=== PATIENT | female | born 1990 | race African-American/Black ===

== ENCOUNTER 2016-08-27 13:29 | Emergency (ER) | payer SELFPAY ==
[~2016-08-27] VITALS: Ht 162.6 cm; Wt 100.0 kg
[~2016-08-27 13:29] MED LIST: FERR324T4 PO; ZOFR4TAB3 SL
[2016-08-27 13:31] VITALS: BP 140/82; PULSE 96; RESP 16; TEMP 98.6; O2SAT 98
[2016-08-27] MEDS ORDERED: BACT800T5 PO (15:09)
[2016-08-27] MEDS ORDERED: CEPH-460 PO (15:09)
[2016-08-27] MEDS ORDERED: IBUP800T23 PO (15:09)
--- NOTE | 2016-08-27 15:10 | PD ---
HPI Chief Complaint: Skin Problem Time Seen by Provider: 15:05 Travel History International Travel<30 days: No Contact w/Intl Traveler<30days: No Traveled to known affect area: No History of Present Illness HPI 26-year-old female presents to the emergency Department with complaint of an abscess to her left armpit 4 days. She has history of abscesses. Denies fever , chills, nausea, vomiting. Has not taken any medications or tried any treatments to alleviate her symptoms. No known relieving or aggravating factors. She says they usually come and go away on their own but this one has gotten bigger and more painful. Denies drainage from the area. No known allergies. Other modifying factors or associated signs and symptoms. PFSH Past Medical History Anemia: Yes Blood Disorders: No Anxiety: Yes Depression: Yes Cancer: No Cardiovascular Problems: Yes Chest Pain: Yes Diminished Hearing: No Endocrine: No Gastrointestinal Disorders: No Genitourinary: No Immune Disorder: No Musculoskeletal: Yes Neurologic: Yes Psychiatric: Yes Reproductive: No Respiratory: No Immunizations Current: Yes Migraines: Yes LMP: 08/02/2016 Menopausal: No : 6 Para: 4 Miscarriage: 1 : 0 Dilation and Curettage (D&C): Yes Past Surgical History Other Surgery: No Social History Alcohol Use: No Tobacco Use: No Substance Use: Yes (marijuana) Allergies-Medications (Allergen,Severity, Reaction): Coded Allergies: No Known Allergies (Verified , 08/27/16) Reported Meds & Prescriptions Reported Meds & Active Scripts Active Ibuprofen 800 Mg Tab 800 Mg PO Q6HR PRN Bactrim DS (Sulfamethoxazole-Trimethoprim) 800-160 Mg Tab 1 Tab PO BID 10 Days Keflex (Cephalexin) 500 Mg Cap 500 Mg PO Q6H 10 Days Review of Systems Except as stated in HPI: all other systems reviewed are Neg Physical Exam Narrative GENERAL: Well-nourished, well-developed patient, in no acute distress SKIN: There is an indurated area in the left axilla which measures about 3 cm in diameter. It is fluctuant but there is no pointing or drainage. There is a zone of inflammation around it but no lymphangitis. HEAD: Atraumatic. Normocephalic. EYES: Pupils equal and round. No scleral icterus. No injection or drainage. ENT: Mucosa pink and moist. Airway patent. NECK: Trachea midline. CARDIOVASCULAR: Regular rate. RESPIRATORY: No accessory muscle use. GASTROINTESTINAL: Obese. MUSCULOSKELETAL: No obvious deformities. No clubbing. No cyanosis. No edema. NEUROLOGICAL: Awake and alert. Oriented 3. No obvious cranial nerve deficits. Motor grossly within normal limits. Normal speech. PSYCHIATRIC: Appropriate mood and affect; insight and judgment normal. Data Data Last Documented VS Vital Signs Date Time Temp Pulse Resp B/P Pulse Ox O2 Delivery O2 Flow Rate FiO2 08/27/16 13:31 98.6 96 16 140/82 98 Orders Lidocai-Epi 1%-1:100,000 Inj (Xylocaine- (08/27/16 15:15) Wound Culture And Gram Stain (08/27/16 15:55) [facility] Medical Decision Making Medical Screen Exam Complete: Yes Emergency Medical Condition: Yes Medical Record Reviewed: Yes Differential Diagnosis Abscess, folic colitis, hydradenitis Narrative Course 18-year-old female physical exam consistent with an abscess to the left axilla. See my procedure note for incision and drainage. Wound culture is pending. Patient is afebrile nontoxic appearing. Denies fever, chills, nausea, vomiting. Keflex, Bactrim, ibuprofen prescribed for home. Instructed patient to follow up with primary care provider or return to the emergency department in 48 hours for packing removal and she verbalizes understanding and agreement with treatment plan. Patient is medically cleared and stable for discharge. Discussed reasons to return to the emergency department. Instructed patient to follow up with primary care provider. Patient agrees with treatment plan. The patients vital signs are stable and the patient is stable for outpatient follow- up and treatment. Patient discharged home, stable and in no acute distress. Procedures Procedure Narrative INCISION AND DRAINAGE OF ABSCESS: The area was prepped and was sterilely draped. A subcutaneous wheal of 1% % Xylocaine with epinephrine with a total number 3 mL was used to anesthetize the area properly. A number 11 scalpel was used to make a 0.5 -cm incision across the area of the abscess. The abscess was drained, complex loculations were broken down, and irrigated with normal saline. Cultures were obtained. Quarter inch iodoform packing was placed in the wound. Sterile dressing applied. Patient advised to have packing removed in two days. Diagnosis Primary Impression: Abscess of left axilla Referrals: Primary Care Physician Patient Instructions: Abscess (ED), Abscess Follow-up (ED), Abscess Incision and Drainage (ED), General Instructions Departure Forms: Tests/Procedures, Work Release Enter return to work date: Aug 28, 2016 Additional Instructions: Complete full course of antibiotics Warm compresses to the affected area Keep area clean and dry Ibuprofen or Tylenol as directed and as needed for pain and inflammation Follow-up with primary care provider Return to emergency department immediately with worsening of symptoms Med/Other Pt SpecificInfo: Prescription(s) given Scripts Ibuprofen 800 Mg [id number] Mg PO Q6HR PRN (PAIN) #30 TAB Ref 0 Prov:Mitali Wade 08/27/16 Sulfamethoxazole-Trimethoprim (Bactrim DS)800-160 Mg Tab1 Tab PO BID 10 Days Ref 0 Prov:Mitali Wade 08/27/16 Cephalexin (Keflex)500 Mg Uys057 Mg PO Q6H 10 Days Ref 0 Prov:Mitali Wade 08/27/16 Disposition: 01 DISCHARGE HOME Condition: Stable Mitali Wade Aug 27, 2016 15:10
[2016-08-27] MEDS ORDERED: LIDOCAINE 1%/EPINEPHrine 1:100,000 SOLN 20 ML VIAL INFIL ONE (15:15)
== END 2016-08-27 16:18 | disposition home or self-care (01) ==
LOC: NEPB 13:29
DX: L02.412 Cutaneous abscess of left axilla (principal); D64.9 Anemia, unspecified
CPT/HCPCS: 10061; 87070

== ENCOUNTER 2016-10-21 01:59 | Emergency (ER) | payer SELFPAY ==
[~2016-10-21] VITALS: Ht 162.6 cm; Wt 100.0 kg
[~2016-10-21 01:59] MED LIST changes: +BACT800T5 PO; +CEPH-460 PO; -FERR324T4 PO; +IBUP800T23 PO; -ZOFR4TAB3 SL
[2016-10-21 02:05] VITALS: BP 136/78; PULSE 94; RESP 16; TEMP 98.6; O2SAT 99
[2016-10-21] MEDS ORDERED: BACT800T5 PO (04:31)
[2016-10-21] MEDS ORDERED: IBUP800T23 PO (04:31)
--- NOTE | 2016-10-21 04:32 | PD ---
HPI . Abscess Chief Complaint: Skin Problem Time Seen by Provider: 04:28 Travel History International Travel<30 days: No Contact w/Intl Traveler<30days: No Traveled to known affect area: No History of Present Illness HPI Patient presents complaining with purulent drainage from her left axilla. She is status post I&D assess a couple weeks ago. She states that it has opened back up and started draining some purulent material within the last 3 or 4 days. She reports subjective fever. She has been taking Tylenol with good relief of her fever. PFSH Past Medical History Anemia: Yes Blood Disorders: No Anxiety: Yes Depression: Yes Cancer: No Cardiovascular Problems: Yes Chest Pain: Yes Diminished Hearing: No Endocrine: No Gastrointestinal Disorders: No Genitourinary: No Immune Disorder: No Musculoskeletal: Yes Neurologic: Yes Psychiatric: Yes Reproductive: No Respiratory: No Immunizations Current: Yes Migraines: Yes Tetanus Vaccination: > 5 Years Influenza Vaccination: No ?: Not Menopausal: No : 6 Para: 4 Miscarriage: 1 : 0 Dilation and Curettage (D&C): Yes Past Surgical History Surgical History: No Previous Surgery Other Surgery: No Social History Alcohol Use: No Tobacco Use: No Substance Use: Yes (marijuana) Allergies-Medications (Allergen,Severity, Reaction): Coded Allergies: No Known Allergies (Verified , 08/27/16) Reported Meds & Prescriptions Reported Meds & Active Scripts Active Review of Systems Except as stated in HPI: all other systems reviewed are Neg General / Constitutional: Positive: Fever Skin: Positive Lesions Physical Exam Narrative GENERAL: Awake and alert and in no acute distress. SKIN: Warm and dry. She has open wound in the left axilla with scant drainage. There is no pus pocket palpable. HEAD: Atraumatic. Normocephalic. EYES: Pupils equal and round. NECK: Trachea midline. CARDIOVASCULAR: Regular rate and rhythm. RESPIRATORY: No accessory muscle use. MUSCULOSKELETAL: No obvious deformities. No edema. NEUROLOGICAL: Awake and alert. No obvious cranial nerve deficits. Motor grossly within normal limits. Normal speech. PSYCHIATRIC: Appropriate mood and affect; insight and judgment normal. Data Data Last Documented VS Vital Signs Date Time Temp Pulse Resp B/P Pulse Ox O2 Delivery O2 Flow Rate FiO2 10/21/16 02:05 98.6 94 16 136/78 99 Room Air MDM Medical Decision Making Medical Screen Exam Complete: Yes Emergency Medical Condition: Yes Differential Diagnosis My differential diagnosis includes but is not limited to localized wound infection, cellulitis, abscess Narrative Course Patient presents with drainage from her left axilla. She is status post I&D couple weeks ago. On exam, she does not have an abscess that needs to be drained. It is open with no pus pocket palpable. She will be placed on oral antibiotics. Diagnosis Primary Impression: Abscess of left axilla Med/Other Pt SpecificInfo: Prescription(s) given Scripts Sulfamethoxazole-Trimethoprim (Bactrim DS)800-160 Mg Tab1 Tab PO BID 10 Days Ref 0 Prov:Hortencia Beard MD 10/21/16 Ibuprofen 800 Mg [id number] Mg PO Q6HR PRN (PAIN) #30 TAB Ref 0 Prov:Hortencia Beard MD 10/21/16 Disposition: 01 DISCHARGE HOME Condition: Stable Hortencia Beard MD Oct 21, 2016 04:32
[2016-10-21] MEDS ORDERED: SULFAMETHOXAZOLE-TRIMETHOPRIM DS 800-160 MG TAB PO ONE (04:45)
[2016-10-21] MEDS ORDERED: IBUPROFEN 800 MG TAB PO ONE (04:45)
== END 2016-10-21 04:54 | disposition home or self-care (01) ==
LOC: NEPC 01:59
DX: L02.412 Cutaneous abscess of left axilla (principal)
CPT/HCPCS: 99283

== ENCOUNTER 2016-12-28 19:51 | Emergency (ER) | payer SELFPAY ==
[~2016-12-28] VITALS: Ht 160 cm; Wt 109.0 kg
[~2016-12-28 19:51] MED LIST changes: -CEPH-460 PO
[2016-12-28 19:53] VITALS: BP 173/86; PULSE 105; RESP 16; TEMP 98.4; O2SAT 98
[2016-12-28] MEDS ORDERED: DICL75TA PO (20:46)
--- NOTE | 2016-12-28 20:52 | PD ---
HPI Chief Complaint: Pain: Acute or Chronic Time Seen by Provider: 20:46 Travel History International Travel<30 days: No Contact w/Intl Traveler<30days: No Traveled to known affect area: No History of Present Illness HPI 26-year-old black female presents emergency aren't with complains of decreased ability to extend her left and right ring and little fingers. She also states that she has tingling in her thumb, index and middle finger of the right and left hand. This is reportedly been present now for the last several days. No history trauma. Patient states that she works at [employer] she denies any medical problems. No connective tissue disorders. PFSH Past Medical History Anemia: Yes Blood Disorders: No Anxiety: Yes Depression: Yes Cancer: No Cardiovascular Problems: Yes Chest Pain: Yes Diminished Hearing: No Endocrine: No Gastrointestinal Disorders: No Genitourinary: No Immune Disorder: No Musculoskeletal: Yes Neurologic: Yes Psychiatric: Yes Reproductive: No Respiratory: No Immunizations Current: Yes Migraines: Yes ?: Not LMP: 12/20/16 Menopausal: No : 6 Para: 4 Miscarriage: 1 : 0 Dilation and Curettage (D&C): Yes Past Surgical History Surgical History: No Previous Surgery Other Surgery: No Social History Alcohol Use: No Tobacco Use: Yes Substance Use: Yes (denies.) Allergies-Medications (Allergen,Severity, Reaction): Coded Allergies: No Known Allergies (Verified , 12/28/16) Reported Meds & Prescriptions Reported Meds & Active Scripts Active Review of Systems Except as stated in HPI: all other systems reviewed are Neg Physical Exam Narrative GENERAL: This is a well-nourished, well-developed patient, in no apparent distress. SKIN: No rashes, ecchymoses or lesions. Warm and dry. HEAD: Atraumatic. Normocephalic. EYES: PERRL, EOMI, no discharge or injection. No scleral icterus. EARS: Clear NOSE: Nasal turbinates appear normal. THROAT: Mucosa pink and moist. Airway patent. NECK: Trachea midline. supple, moves head freely. LUNGS: Clear to auscultation. CV: Regular in rhythm. ABDOMEN: Soft nontender. EXT: No clubbing cyanosis or edema. 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 When the patient is distracted she is able to completely extend them. When she is being monitored her fingers relax into the bony deformities. She has full range of motion. She has intact gross sensation. She states that she has intact gross sensation on her exam. She has intact median/ulnar/radial nerves. Her hands are warm. There is no erythema. Good Refill. Data Data Last Documented VS Vital Signs Date Time Temp Pulse Resp B/P Pulse Ox O2 Delivery O2 Flow Rate FiO2 12/28/16 19:53 98.4 105 16 173/86 98 Room Air MDM Medical Decision Making Medical Screen Exam Complete: Yes Emergency Medical Condition: Yes Medical Record Reviewed: Yes Differential Diagnosis MDM: High Differential diagnoses: Fracture, sprain, strain, dislocation, contusion, neurovascular injury, connective tissue disorder Narrative Course Patient's exam reveals no acute injury. At times I can distract her and her and exam is normal. Other times she has deformities involving the little and ring fingers bilaterally consistent with boutonniere deformity. Etiology is unclear. I see no emergent condition. She is advised to follow-up with an orthopedist. She is given information regarding the [facility] as well as to call to see if her Medicaid is still active Diagnosis Primary Impression: Acquired bilateral hand deformity Patient Instructions: General Instructions Additional Instructions: Rest. Elevation. Medications as directed. Follow-up with the [facility] area Follow-up to see if you have Medicaid. Return to the ER for emergencies. Med/Other Pt SpecificInfo: Prescription(s) given Scripts Diclofenac Sodium DR 75 Mg Tabdr75 Mg PO BID #20 TAB Prov:Bing Lemus MD 12/28/16 Disposition: 01 DISCHARGE HOME Condition: Stable Boyd Gray Dec 28, 2016 20:52
== END 2016-12-28 21:39 | disposition home or self-care (01) ==
LOC: NEPK 19:51
DX: M21.942 Unspecified acquired deformity of hand, left hand (principal); M21.941 Unspecified acquired deformity of hand, right hand; D64.9 Anemia, unspecified; F32.9 Major depressive disorder, single episode, unspecified; F41.9 Anxiety disorder, unspecified; Z72.0 Tobacco use
CPT/HCPCS: 99283

== ENCOUNTER 2017-02-18 14:45 | Emergency (ER) | payer SELFPAY ==
[~2017-02-18] VITALS: Ht 162.6 cm; Wt 95.0 kg
[~2017-02-18 14:45] MED LIST changes: -BACT800T5 PO; +DICL75TA PO; -IBUP800T23 PO
[2017-02-18 14:46] VITALS: BP 134/86; PULSE 88; RESP 18; TEMP 98.6; O2SAT 97
--- NOTE | 2017-02-18 15:01 | PD ---
HPI Chief Complaint: Oral / Dental Pain or Problem Time Seen by Provider: 14:58 Travel History International Travel<30 days: No Contact w/Intl Traveler<30days: No Traveled to known affect area: No History of Present Illness HPI 27-year-old female presents the emergency department to 3 day history of pain in the left upper jaw as well as some low back pain. Patient states he was taking ibuprofen with relief until yesterday. She denies fever, chills, difficulty swallowing or sore throat. The pain is 9 out of 10. Patient states sensitivity to hot and cold. Back pain is stiffness bilaterally without specific point tenderness or history of injury. Patient has no known drug allergies. PFSH Past Medical History Anemia: Yes Blood Disorders: No Anxiety: Yes Depression: Yes Cancer: No Cardiovascular Problems: Yes Chest Pain: Yes Diminished Hearing: No Endocrine: No Gastrointestinal Disorders: No Genitourinary: No Immune Disorder: No Musculoskeletal: Yes Neurologic: Yes Psychiatric: Yes Reproductive: No Respiratory: No Immunizations Current: Yes Migraines: Yes ?: Not LMP: 02/04/17 Menopausal: No : 6 Para: 4 Miscarriage: 1 : 0 Dilation and Curettage (D&C): Yes Past Surgical History Other Surgery: No Social History Alcohol Use: No Tobacco Use: Yes Substance Use: Yes (denies.) Allergies-Medications (Allergen,Severity, Reaction): Coded Allergies: No Known Allergies (Verified , 02/18/17) Reported Meds & Prescriptions Reported Meds & Active Scripts Active Diclofenac Sodium DR (Diclofenac Sodium) 75 Mg Tabdr 75 Mg PO BID Review of Systems Except as stated in HPI: all other systems reviewed are Neg General / Constitutional: No: Fever Eyes: No: Visual changes HENT: Positive: Dental Difficulties, No: Headaches, Vertigo, Lightheadedness, Sore Throat, Rhinitis, Rhinorrhea, Congestion, Nosebleed, Neck Stiffness, Neck Pain, Masses, Gingival Bleeding, Ear Discharge, Earache Cardiovascular: No: Chest Pain or Discomfort Respiratory: No: Shortness of Breath Gastrointestinal: No: Abdominal Pain Genitourinary: No: Dysuria Musculoskeletal: Positive: Myalgias (see history present illness), No: Pain Skin: No Rash Neurologic: No: Weakness Psychiatric: No: Depression Endocrine: No: Polydipsia Hematologic/Lymphatic: No: Easy Bruising Physical Exam Narrative GENERAL: Patient appears in mild to moderate distress. SKIN: Warm and dry. Normal color. Normal turgor. No erythema. HEAD: Atraumatic. Normocephalic. Patient has swelling in the left upper jaw region consistent with her history. EYES: Pupils equal and round. No scleral icterus. No injection or drainage. ENT: No nasal bleeding or discharge. Mucous membranes pink and moist. Pharynx is clear. Airway is patent. Uvula is midline. No significant swelling is noted. She has tenderness on the #15 and 16 tooth. TMs are clear bilaterally. NECK: Trachea midline. Supple and nontender without significant lymphadenopathy. No Daryl's angina is noted. CARDIOVASCULAR: Regular rate and rhythm. RESPIRATORY: No accessory muscle use. Clear to auscultation. Breath sounds equal bilaterally. MUSCULOSKELETAL: Extremities without clubbing, cyanosis, or edema. No obvious deformities. NEUROLOGICAL: Awake and alert. No obvious cranial nerve deficits. Motor grossly within normal limits. Five out of 5 muscle strength in the arms and legs. Normal speech. PSYCHIATRIC: Appropriate mood and affect; insight and judgment normal. Data Data Last Documented VS Vital Signs Date Time Temp Pulse Resp B/P Pulse Ox O2 Delivery O2 Flow Rate FiO2 02/18/17 14:46 98.6 88 18 134/86 97 Room Air Orders Ketorolac Inj (Toradol Inj) (02/18/17 15:15) Penicillin V Potassium (Veetids) (02/18/17 15:15) MDM Medical Decision Making Medical Screen Exam Complete: Yes Emergency Medical Condition: Yes Differential Diagnosis Dental pain. Dental caries. Dental abscess. Low back pain. Narrative Course Patient is given 60 mg Toradol IM. Patient is given 500 mg Pen-Vee K by mouth now. Patient will be continued on Pen-Vee K 500 mg 4 times a day 10 days. Patient is given a prescription for ibuprofen 600 mg 4 times a day #40. Patient is given a prescription for acetaminophen 500 mg 1-2 tabs every 6 hours #60. Is given a prescription for Magic mouthwash as directed every 2 hours when necessary with one refill. Dental resource instructions are given. Patient follow-up with a dentist as soon as possible or return to the emergency Department with worsening symptoms as needed. Diagnosis Primary Impression: Dental abscess Referrals: Dentist call for appointment Patient Instructions: Dental Abscess (ED), General Instructions Additional Instructions: Patient is given 60 mg Toradol IM. Patient is given 500 mg Pen-Vee K by mouth now. Patient will be continued on Pen-Vee K 500 mg 4 times a day 10 days. Patient is given a prescription for ibuprofen 600 mg 4 times a day #40. Patient is given a prescription for acetaminophen 500 mg 1-2 tabs every 6 hours #60. Is given a prescription for Magic mouthwash as directed every 2 hours when necessary with one refill. Dental resource instructions are given. Patient follow-up with a dentist as soon as possible or return to the emergency Department with worsening symptoms as needed. Scripts Penicillin V Potassium 500 Mg Ros211 Mg PO Q6H 10 Days Prov:Mohsen Dumont MD 02/18/17 Quafbevc-Yewytuevjqqemjv-Uwjydzudq Liq (Magic Mouthwash Adult Liq)120 Ml Susp5 Ml SWISH-SWAL ACHS #120 ML Ref 2 Each 5 mL contains: Nystatin 200,000 units, Diphenhydramine 4.25 mg, Viscous Lidocaine 10 mg, Hood syrup 0.8 mL Prov:Mohsen Dumont MD 02/18/17 Ibuprofen 600 Mg Epe077 Mg PO Q6H PRN (Pain/Inflammation) #40 TAB Prov:Mohsen Dumont MD 02/18/17 Acetaminophen (Non-Aspirin Pain Relief ES)500 Mg Tab1,000 Mg PO Q6HR PRN (PAIN) #60 TAB Prov:Mohsen Dumont MD 02/18/17 Disposition: 01 DISCHARGE HOME Condition: Stable Brennen Molina Feb 18, 2017 15:01
[2017-02-18] MEDS ORDERED: MAGICADU2 SWISH-SWAL (15:03)
[2017-02-18] MEDS ORDERED: NON-500T13 PO (15:03)
[2017-02-18] MEDS ORDERED: IBUP-232 PO (15:03)
[2017-02-18] MEDS ORDERED: PENI500T PO (15:03)
[2017-02-18] MEDS ORDERED: PENICILLIN V POTASSIUM 500 MG TAB PO ONE (15:15)
[2017-02-18] MEDS ORDERED: KETOROLAC TROMETHAMINE 60 MG/2 ML (IM) VIAL IM ONE (15:15)
[2017-02-18 16:24] VITALS: RESP 16
== END 2017-02-18 15:43 | disposition home or self-care (01) ==
LOC: NEPK 14:45
DX: K04.7 Periapical abscess without sinus (principal)
CPT/HCPCS: 96372; 99284; J1885

== ENCOUNTER 2017-05-28 09:57 | Emergency (ER) | payer SELFPAY ==
[~2017-05-28] VITALS: Ht 152.4 cm; Wt 95.5 kg
[~2017-05-28 09:57] MED LIST changes: +IBUP-232 PO; +MAGICADU2 SWISH-SWAL; +NON-500T13 PO; +PENI500T PO
[2017-05-28 09:58] VITALS: BP 141/88; PULSE 109; RESP 20; TEMP 100; O2SAT 99
[2017-05-28] MEDS ORDERED: BUPIVACAINE HCL PF 0.5% 30 ML VIAL INFIL ONE (10:15)
[2017-05-28] MEDS ORDERED: PENI500T PO (10:39)
[2017-05-28] MEDS ORDERED: METR1TAB76 PO (10:39)
[2017-05-28] MEDS ORDERED: CHLO.12%30 SWISH-SPIT (10:39)
--- NOTE | 2017-05-28 10:43 | PD ---
HPI Chief Complaint: Facial Pain or Swelling Time Seen by Provider: 10:07 Travel History International Travel<30 days: No Contact w/Intl Traveler<30days: No Traveled to known affect area: No History of Present Illness HPI 27-year-old female presents to emergency department complaining of left upper gum and tooth pain for 2 days. States she also woke up with swelling and tenderness of the upper right cheek without any inciting events. Patient says this is never happened before. Patient denies fever or chills. Also denies nausea, vomiting, diarrhea, blurred vision, headache. Patient did admit to diarrhea approximately 10 times last night but again, denies diarrhea today. Patient denies abnormal taste in the mouth. States she has not seen a dentist for this condition. PFSH Past Medical History Anemia: Yes Blood Disorders: No Anxiety: Yes Depression: Yes Cancer: No Cardiovascular Problems: Yes Chest Pain: Yes Diminished Hearing: No Endocrine: No Gastrointestinal Disorders: No Genitourinary: No Immune Disorder: No Musculoskeletal: Yes Neurologic: Yes Psychiatric: Yes Reproductive: No Respiratory: No Immunizations Current: Yes Migraines: Yes ?: Not Menopausal: No : 6 Para: 4 Miscarriage: 1 : 0 Dilation and Curettage (D&C): Yes Past Surgical History Other Surgery: No Social History Alcohol Use: No Tobacco Use: Yes Substance Use: Yes (denies.) Allergies-Medications (Allergen,Severity, Reaction): Coded Allergies: No Known Allergies (Verified , 02/18/17) Reported Meds & Prescriptions Reported Meds & Active Scripts Active Metronidazole 500 Mg Tab 500 Mg PO BID 7 Days Chlorhexidine Gluconate (Mouth) Liq (Chlorhexidine Gluconate) 0.12% Soln 15 Ml SWISH-SPIT BID 7 Days Penicillin V Potassium 500 Mg Tab 500 Mg PO Q6H 10 Days Review of Systems Except as stated in HPI: all other systems reviewed are Neg Physical Exam Narrative GENERAL: Well-nourished, well-developed patient. SKIN: Focused skin assessment warm/dry. HEAD: Normocephalic. EYES: No scleral icterus. No injection or drainage. NECK: Supple, trachea midline. No JVD or lymphadenopathy. MOUTH: Mild swelling of left upper cheek with mild TTP. Mucous membranes moist, tongue appear normal. Left upper gums about the premolar- fluctuance along the lingual and buccal aspect of gums. When the cheek was distracted for examination there was an expression of exudate into the mouth. Patient was able to suction herself. CARDIOVASCULAR: Regular rate and rhythm without murmurs, gallops, or rubs. RESPIRATORY: Breath sounds equal bilaterally. No accessory muscle use. MUSCULOSKELETAL: No cyanosis, or edema. BACK: Nontender without obvious deformity. No CVA tenderness. Data Data Last Documented VS Vital Signs Date Time Temp Pulse Resp B/P (MAP) Pulse Ox O2 Delivery O2 Flow Rate FiO2 05/28/17 10:49 05/28/17 09:58 100.0 109 20 99 Room Air Orders Orders Bupivacaine Pf 0.5% Inj (Marcaine Pf 0.5 (05/28/17 10:15) Ed Discharge Order (05/28/17 10:43) [facility] Medical Decision Making Medical Screen Exam Complete: Yes Emergency Medical Condition: Yes Differential Diagnosis Tooth abscess versus gingivitis versus gum abscess Narrative Course 27-year-old female presents to emergency department complaining of left upper gum and tooth pain for 2 days. States she also woke up with swelling and tenderness of the upper right cheek without any inciting events. Patient says this is never happened before. Patient denies fever or chills. Also denies nausea, vomiting, diarrhea, blurred vision, headache. Patient did admit to diarrhea approximately 10 times last night but again, denies diarrhea today. Patient denies abnormal taste in the mouth. States she has not seen a dentist for this condition. Vital signs stable Physical exam findings consistent with a gingival abscess. Performed an incision and drainage however, minimal exudate expressed. Patient likely was able to drain the abscess on her own with simple distraction of the cheek. Patient discharged with antibiotics. Advised to follow up with dentist within 2-3 days. Return to the emergency department for worsening symptoms. She understood and will comply. I gave the patient dental information from the [facility] services. Procedures Procedure Narrative INCISION AND DRAINAGE OF ABSCESS: Two alveolar blocks performed - premolar and molar region using bupivacaine 5%. A number 11 scalpel was used to make a subcentimeter incision across the area of the abscess. The abscess was drained - minimal exudate expressed. Patient advised on wound care. Antibiotics prescribed. Chlorhexidine mouth rinse prescribed Diagnosis Primary Impression: Gingival abscess Referrals: Dentist Additional Instructions: If her symptoms persist or worsen return to the emergency department Follow Up with her primary care physician within 3 days. Take medications as prescribed Follow up with a dentist Scripts Metronidazole (Metronidazole) 500 Mg Tab 500 MG PO BID for Infection for 7 Days, #14 TAB 0 Refills Prov: Tracy Johnson MD 05/28/17 Chlorhexidine Gluconate (Mouth) Liq (Chlorhexidine Gluconate (Mouth) Liq) 0.12% Soln 15 ML SWISH-SPIT BID for 7 Days, #210 ML 0 Refills Prov: Tracy Johnson MD 05/28/17 Penicillin V Potassium (Penicillin V Potassium) 500 Mg Tab 500 MG PO Q6H for Infection for 10 Days, TAB Prov: Tracy Johnson MD 05/28/17 Disposition: 01 DISCHARGE HOME Condition: Stable Keiko Pandya May 28, 2017 10:43
== END 2017-05-28 10:49 | disposition home or self-care (01) ==
LOC: NEPD 09:57
DX: K05.219 Aggressive periodontitis, localized, unspecified severity (principal); Z72.0 Tobacco use
CPT/HCPCS: 10060; 41800

== ENCOUNTER 2017-12-01 18:31 | Emergency (ER) | payer OTHER ==
[~2017-12-01 18:31] MED LIST changes: +CHLO.12%30 SWISH-SPIT; -DICL75TA PO; -IBUP-232 PO; -MAGICADU2 SWISH-SWAL; +METR1TAB76 PO; -NON-500T13 PO
[2017-12-01] MEDS ORDERED: ROBA750T PO (20:48)
[2017-12-01] MEDS ORDERED: MOBI15TA PO (20:48)
== END 2017-12-01 19:01 | disposition left against medical advice (07) ==
LOC: NED 18:31
DX: Z53.21 Procedure and treatment not carried out due to patient leaving prior to being seen by health care provider (principal)
CPT/HCPCS: 99281

== ENCOUNTER 2017-12-01 20:16 | Emergency (ER) | payer OTHER ==
[2017-12-01 20:19] VITALS: BP 132/80; PULSE 89; RESP 18; TEMP 98.2; O2SAT 99
[2017-12-01] MEDS ORDERED: ROBA750T PO (20:48)
[2017-12-01] MEDS ORDERED: MOBI15TA PO (20:48)
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
[2017-12-01] MEDS ORDERED: IBUPROFEN 600 MG TAB PO ONE (21:15)
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
== END 2017-12-01 22:15 | disposition home or self-care (01) ==
LOC: NEPD 20:16
DX: S16.1XXA Strain of muscle, fascia and tendon at neck level, initial encounter (principal); S39.012A Strain of muscle, fascia and tendon of lower back, initial encounter; S93.402A Sprain of unspecified ligament of left ankle, initial encounter; S93.401A Sprain of unspecified ligament of right ankle, initial encounter; S93.602A Unspecified sprain of left foot, initial encounter; V89.2XXA Person injured in unspecified motor-vehicle accident, traffic, initial encounter; F32.9 Major depressive disorder, single episode, unspecified; F12.90 Cannabis use, unspecified, uncomplicated; Z72.0 Tobacco use
CPT/HCPCS: 72040; 72100; 73610; 73630; 99284

== ENCOUNTER 2018-01-14 07:13 | Inpatient (IN) ==
[2018-01-14] MEDS ORDERED: HYDROmorphone PF Inj 2 MG/ML Vial IV.PUSH ONE (07:31)
[2018-01-14] MEDS ORDERED: Ketamine Inj 200 MG/20 ML Vial IV.PUSH STA (07:32)
[2018-01-14] MEDS ORDERED: Ketamine Inj 500 MG/10 ML Vial ONE (07:32)
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
[2018-01-14 09:02] LABS: Baso % (Auto) 0.3 % (0.0-2.0); Eos # (Auto) 0.1 th/mm3 (0.0-0.4); Eos % (Auto) 0.5 % (0.0-4.0); Hemoglobin 11.7 gm/dL (11.6-15.3); Lymph # (Auto) 1.7 th/mm3 (1.0-4.8); Lymph % (Auto) 12.3 % (9.0-44.0); Mean Corpuscular HGB Conc 33.6 % (32.0-36.0); Mean Corpuscular Hemoglobin 29.2 pg (27.0-34.0); Mean Platelet Volume 8.6 fL (7.0-11.0); Mono # (Auto) 0.6 th/mm3 (0.0-0.9); Mono % (Auto) 4.3 % (0.0-8.0); Neut # (Auto) 11.6 th/mm3 (1.8-7.7); Neut % (Auto) 82.6 % (16.0-70.0); Platelet Count 324 th/mm3 (150-450); Red Blood Count 4.02 mil/mm3 (4.00-5.30); Red Cell Distribution Width 16.8 % (11.6-17.2)
[2018-01-14 09:14] LABS: Anion Gap 11 meq/L (5-15); Aspartate Aminotransferase 15 U/L (15-37); Blood Urea Nitrogen 9 mg/dL (7-18); Calcium 8.1 mg/dL (8.5-10.1); Carbon Dioxide 20.9 meq/L (21.0-32.0); Chloride 110 meq/L (98-107); Glomerular Filtration Rate Greater Than 89 mL/min (>89); Glucose,Random 81 mg/dL (74-106); Potassium 3.2 meq/L (3.5-5.1); Sodium 142 meq/L (136-145)
[2018-01-14 09:15] LABS: Alanine Aminotransferase 15 U/L (10-53)
[2018-01-14 09:19] LABS: Alkaline Phosphatase 69 U/L (45-117); Total Protein 6.7 g/dL (6.4-8.2)
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
[2018-01-14] MEDS ORDERED: ceFAZolin 2 GM Premix Inj 2 GM/50 ML PIGGYBACK IV.SIG ONE (09:34)
[2018-01-14] MEDS ORDERED: Acetaminophen 325 MG Tablet PO PRN (09:48)
[2018-01-14] MEDS ORDERED: Bisacodyl 10 MG Supp RECTAL PRN (09:48)
[2018-01-14] MEDS ORDERED: Naloxone Inj 0.4 MG/ML Vial IV.PUSH PRN (09:50)
[2018-01-14] MEDS ORDERED: Metoprolol Tartrate 25 MG Tablet PO PRN (10:30)
[2018-01-14] MEDS ORDERED: Chlorhexidine Gluconate 2% 1 Pack (2 Cloths) TOPICAL SCH (10:30)
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
[2018-01-14] MEDS ORDERED: Sodium Chlor 0.9% Inj 500 ML IV.SIG PRN (11:00)
[2018-01-14] MEDS ORDERED: Post-op Orders (for Pharmacy) OTHER STA (11:09)
--- NOTE | 2018-01-14 11:14 | P.OP ---
Date of procedure: 01/14/18 Procedure: Closed reduction right distal tibia and fibula fractures, external fixation right ankle Anesthesia: GETA Surgeon: Gume Shelton MD Cause Analyst: JADEN Borges PA-C The surgical procedure was assisted by my physician electrical assistant. My P.A. presence was necessary throughout this case for the manipulation and positioning of the surgical extremity. My P.A. was assisting me throughout the duration of this procedure. The skill set of a physician electrical assistant was medically necessary to complete this procedure. During the surgical case the cath lab tech was working at the back table and the physician electrical assistant was directly assisting me. Operation and Findings: Implants used: Orthofix Details of procedure: This patient sustained an injury resulting in unstable fractures of the right distal tibia and fibula. Patient was seen and evaluated preoperatively and found to have too much swelling to proceed with open reduction internal fixation. Risk and benefits of surgery were discussed in depth with patient and informed consent was confirmed. Surgical site was marked. Patient was brought to operating room and placed on the OR table. Patient was given IV sedation and GETA. Patient received IV antibiotics and timeout procedure was performed. Operative leg was prepped with alcohol followed by Hibiclens and draped in the usual sterile fashion. Timeout procedure was performed. The procedure began with placement of external fixation. Two percutaneous incisions were made over the tibia. Pin sites were pre-drilled. External fixation pins were placed from anterior to posterior in the tibia shaft. An additional transfixion pin was placed through the calcaneus. Pins were also placed in the first and fifth metatarsals. An external fixator was now constructed. Fluoroscopy was used to confirm appropriate pin placement Next attention was turned to traction with manipulation of the leg. The fracture was manipulated under fluoroscopy. Excellent reduction was achieved. With the fracture held in reduced position, the external fixator was tightened. Fluoroscopy confirmed a well-placed external fixation with well-aligned fractures. Sterile dressings were applied. The patient was awakened and transferred to Recovery in stable condition. The soft tissue was reevaluated. Patient did have swelling around the ankle and calf but compartments were soft and compressible with no signs of compartment syndrome.
[2018-01-14] MEDS ORDERED: fentaNYL Citrate Inj 100 MCG/2 ML Ampul ONE (11:37)
[2018-01-14] MEDS ORDERED: Sodium Chlor 0.9% Inj 250 ML IV.SIG SCH (12:00)
[2018-01-14] MEDS ORDERED: *morphine SULFATE 10 MG/ML PERIprocedure ONLY ONE (12:04)
[2018-01-14] MEDS ORDERED: *Labetalol HCl Inj 100 MG/20 ML Vial PERIprocedural Use ONLY IV.PUSH ONE (12:36)
--- NOTE | 2018-01-14 13:18 | XR ---
EXAM DATE: 01/14/2018 12:47 PM EDT AGE/SEX: 27 years / Female INDICATIONS: Right ankle closed reduction, external fixation. CLINICAL DATA: This is the patient's initial encounter. Patient reports that signs and symptoms have been present for 1 day and indicates a pain score of Nonresponsive. MEDICAL/SURGICAL HISTORY: None. None. COMPARISON: No prior exams available for comparison. FINDINGS: Near-anatomic alignment across the fracture of the distal tibia and fibula. Alignment across the ankle mortise is anatomic. CONCLUSION: Anatomic alignment across the ankle mortise. Electronically signed by: Ketan Morgan MD 01/14/2018 1:16 PM EDT
[2018-01-14] MEDS: Ketorolac Inj 30 MG/ML (IVP) Vial IV.PUSH SCH ×2 (14:09→19:11)
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
[2018-01-14] MEDS: Morphine Inj 4 MG/ML Vial IV.PUSH PRN ×2 (15:26→21:17)
--- NOTE | 2018-01-14 16:24 | CT ---
EXAM DATE: 01/14/2018 4:11 PM EDT AGE/SEX: 27 years / Female INDICATIONS: Right ankle pain. Post surgery. CLINICAL DATA: This is the patient's initial encounter. Patient reports that signs and symptoms have been present for 1 day and indicates a pain score of 5/10. MEDICAL/SURGICAL HISTORY: None. None. RADIATION DOSE: 8.07 CTDI (mGy) COMPARISON: No prior exams available for comparison. TECHNIQUE: Multiple contiguous axial images were acquired using a multirow detector CT scanner witho ut contrast. Multiplanar reconstruction was performed in the sagittal and coronal planes. Using aut omated exposure control and adjustment of the mA and/or kV according to patient size, radiation dose was kept as low as reasonably achievable to obtain optimal diagnostic quality images. DICOM format i mage data is available electronically for review and comparison. FINDINGS: Again seen is the severely comminuted fracture of the tibia involving the tibial plafond. The medial malleolus is a large free fragment. The lateral two thirds of the tibial plafond severely fragmented with multiple small bony fragments present several which are intra-articular. There is disruption of approximately 70% of the articular surface of the tibia. Alignment about the ankle mortise is anatomi c. Distal fibular fracture is again noted. Alignment about the fibular fracture is anatomic. Talar dome is intact. Tarsal navicular is intact. Calcaneus, appears by a pin is intact. CONCLUSION: 1. Near-anatomic alignment across the tibiotalar joint. 2. Fragmentation of at least two thirds of the articular surface of the tibial plafond with several small intra-articular fragments. Electronically signed by: Ketan Morgan MD 01/14/2018 4:23 PM EDT
[2018-01-14] MEDS: ceFAZolin 2 GM Premix Inj 2 GM/50 ML PIGGYBACK IV.SIG SCH (17:46)
[2018-01-14] MEDS: Senna/Docusate Sodium 8.6/50 MG Tablet PO SCH (21:16)
[2018-01-14] MEDS: Temazepam 15 MG Capsule PO PRN (21:21)
[2018-01-15] MEDS: ceFAZolin 2 GM Premix Inj 2 GM/50 ML PIGGYBACK IV.SIG SCH ×2 (01:26→11:32)
[2018-01-15] MEDS: Enoxaparin Inj 40 MG/0.4 ML Syringe SQ SCH ×2 (01:27→09:22)
[2018-01-15] MEDS: Morphine Inj 4 MG/ML Vial IV.PUSH PRN ×3 (01:27→22:03)
[2018-01-15] MEDS: Ketorolac Inj 30 MG/ML (IVP) Vial IV.PUSH SCH ×3 (03:56→20:34)
--- NOTE | 2018-01-15 06:39 | P.PNOP ---
Subjective Interval history: Resting comfortably. Pain is controlled Physical Exam Vital signs: Vital Signs 01/14/18 07:16 01/14/18 07:23 01/14/18 09:20 Temperature 97.5 F L Pulse Rate 114 H Respiratory Rate 19 Blood Pressure 148/97 H Pulse Oximetry 97 100 01/14/18 11:26 01/14/18 11:30 01/14/18 11:45 Temperature 97.4 F L Pulse Rate 90 80 75 Respiratory Rate 9 L 11 L 11 L Blood Pressure 140/97 H 162/95 H 161/94 H Pulse Oximetry 100 100 100 01/14/18 12:00 01/14/18 12:15 01/14/18 12:30 Temperature Pulse Rate 63 64 70 Respiratory Rate 10 L 10 L 13 Blood Pressure 154/103 H 162/103 H 161/100 H Pulse Oximetry 96 100 100 01/14/18 12:45 01/14/18 13:00 01/14/18 13:15 Temperature Pulse Rate 63 74 66 Respiratory Rate 12 12 10 L Blood Pressure 172/102 H 140/84 153/98 H Pulse Oximetry 100 99 100 01/14/18 13:30 01/14/18 13:57 01/14/18 15:30 Temperature 98.0 F 97.6 F Pulse Rate 76 86 Respiratory Rate 14 18 18 Blood Pressure 140/73 153/89 H Pulse Oximetry 100 100 01/14/18 16:00 01/14/18 20:00 01/14/18 21:45 Temperature 97.8 F 97.4 F L Pulse Rate 86 108 H Respiratory Rate 18 18 17 Blood Pressure 158/87 H 143/78 H Pulse Oximetry 95 97 01/14/18 23:10 01/15/18 00:00 01/15/18 01:29 Temperature 97.5 F L Pulse Rate 94 H Respiratory Rate 18 18 18 Blood Pressure 150/79 H Pulse Oximetry 99 01/15/18 04:00 Temperature 97.3 F L Pulse Rate 92 H Respiratory Rate 18 Blood Pressure 155/82 H Pulse Oximetry 97 Intake & Output 01/14/18 01/14/18 01/15/18 06:59 18:59 06:59 Intake Total 500 / 500 Output Total 5 / 5 Balance 495 / 495 Weight 97.976 kg Intake: IV 100 / 100 Ancef 2 GM Premix Inj 2 gm In 100 / 100 50 ml @ 200 mls/hr IV.SIG Q8H [facility] Rx#:[id number] Anesthesia Amount 400 / 400 Output: Estimated Blood Loss 5 / 5 Narrative: Bilateral upper extremity full range of motion neurovascularly intact Left lower extremity: No pain range range of motion intact sensation distally with good capillary refills Right lower extremity: Minimal pain with movement of hip or knee. External fixator in place. Swelling +3. Pin sites clean dry. Intact distal pulses. Diminished sensation over first toe Results - Labs CBC & Chem 7: 01/14/18 08:32 01/14/18 08:32 Laboratory Results - last 24 hr 01/14/18 01/14/18 08:32 08:32 WBC 14.0 H RBC 4.02 Hgb 11.7 Hct 35.0 MCV 87.0 MCH 29.2 MCHC 33.6 RDW 16.8 Plt Count 324 MPV 8.6 Prelim Diff (Auto) Slide review pending Neut % (Auto) 82.6 H Lymph % (Auto) 12.3 [place] % (Auto) 4.3 Eos % (Auto) 0.5 Baso % (Auto) 0.3 Neut # (Auto) 11.6 H Lymph # (Auto) 1.7 [place] # (Auto) 0.6 Eos # (Auto) 0.1 Baso # (Auto) 0.0 WBC Differential . Diff Scan Auto diff confirmed Differential Comment . Sodium 142 Potassium 3.2 L Chloride 110 H Carbon Dioxide 20.9 L Anion Gap 11 BUN 9 Creatinine 0.87 Estimated GFR Greater than 89 Random Glucose 81 Calcium 8.1 L Total Bilirubin 0.3 AST 15 ALT 15 Alkaline Phosphatase 69 Total Protein 6.7 Albumin 3.0 L Beta HCG, Quant Less than 1 - Imaging Impressions Ankle X-Ray 01/14/18 00:00 CONCLUSION: Anatomic alignment across the ankle mortise. Foot X-Ray 01/14/18 07:30 CONCLUSION: 1. Fractures of the distal tibia and fibula as detailed in the of the report. 2. Small avulsion fracture involving the tip of the fibula. 3. Intact foot. Tibia/Fibula X-Ray 01/14/18 07:30 CONCLUSION: Tibial and fibular fractures as detailed above. Ankle CT 01/14/18 08:37 CONCLUSION: 1. Near-anatomic alignment across the tibiotalar joint. 2. Fragmentation of at least two thirds of the articular surface of the tibial plafond with several small intra-articular fragments. Assessment and Plan - Assessment and Plan Right comminuted distal tibia fracture status post external fixation POD 1 Strict nonweightbearing Elevation to decrease swelling Is explained to the patient that she has a severely comminuted distal tibia fracture. We will stage this in 2 procedures. First procedure will be this morning which we will reduce the tibia and add external fixation. One swelling has improved which will take 5-7 days we will proceed with the second part of the procedure which will include open reduction internal fixation of the right distal tibia and possibly fibula.
[2018-01-15 06:46] LABS: Baso % (Auto) 0.3 % (0.0-2.0); Lymph # (Auto) 1.8 th/mm3 (1.0-4.8); Lymph % (Auto) 12.8 % (9.0-44.0); Mean Corpuscular HGB Conc 33.2 % (32.0-36.0); Mean Corpuscular Hemoglobin 29.1 pg (27.0-34.0); Mean Corpuscular Volume 87.7 fL (80.0-100.0); Mean Platelet Volume 8.2 fL (7.0-11.0); Mono # (Auto) 0.6 th/mm3 (0.0-0.9); Mono % (Auto) 4.2 % (0.0-8.0); Neut # (Auto) 11.9 th/mm3 (1.8-7.7); Neut % (Auto) 82.7 % (16.0-70.0); Platelet Count 397 th/mm3 (150-450); Red Blood Count 3.77 mil/mm3 (4.00-5.30); Red Cell Distribution Width 16.4 % (11.6-17.2); White Blood Count 14.4 th/mm3 (4.0-11.0)
[2018-01-15 07:07] LABS: Albumin 3.1 g/dL (3.4-5.0); Anion Gap 9 meq/L (5-15); Aspartate Aminotransferase 31 U/L (15-37); Blood Urea Nitrogen 7 mg/dL (7-18); Calcium 8.9 mg/dL (8.5-10.1); Chloride 106 meq/L (98-107); Glomerular Filtration Rate Greater Than 89 mL/min (>89); Glucose,Random 114 mg/dL (74-106); Potassium 3.9 meq/L (3.5-5.1); Sodium 141 meq/L (136-145)
[2018-01-15 07:18] LABS: Alanine Aminotransferase 17 U/L (10-53); Alkaline Phosphatase 74 U/L (45-117); Total Protein 7.1 g/dL (6.4-8.2)
[2018-01-15] MEDS ORDERED: Enoxaparin Inj 40 MG/0.4 ML Syringe SQ SCH (09:00)
[2018-01-15] MEDS: Senna/Docusate Sodium 8.6/50 MG Tablet PO SCH ×2 (09:22→20:34)
--- NOTE | 2018-01-15 14:19 | P.PN ---
Subjective Interval history: Follow up right ankle fracture s/p repair January 15, 2018-patient seen and examined, reports improvement in pain. No chest pain or shortness of breath. Physical Exam Vital signs: Vital Signs 01/14/18 15:30 01/14/18 16:00 01/14/18 20:00 Temperature 97.8 F 97.4 F L Pulse Rate 86 108 H Respiratory Rate 18 18 18 Blood Pressure 158/87 H 143/78 H Pulse Oximetry 95 97 01/14/18 21:45 01/14/18 23:10 01/15/18 00:00 Temperature 97.5 F L Pulse Rate 94 H Respiratory Rate 17 18 18 Blood Pressure 150/79 H Pulse Oximetry 99 01/15/18 01:29 01/15/18 04:00 01/15/18 08:00 Temperature 97.3 F L 97.8 F Pulse Rate 92 H 75 Respiratory Rate 18 18 19 Blood Pressure 155/82 H 134/73 Pulse Oximetry 97 99 Intake & Output 01/14/18 01/15/18 01/15/18 18:59 06:59 18:59 Intake Total 500 / 500 50 / 50 Output Total 5 / 5 Balance 495 / 495 50 / 50 Weight 97.976 kg Intake: IV 100 / 100 50 / 50 Ancef 2 GM Premix Inj 2 gm In 100 / 100 50 / 50 50 ml @ 200 mls/hr IV.SIG Q8H [facility] Rx#:[id number] Anesthesia Amount 400 / 400 Output: Estimated Blood Loss 5 / 5 Narrative: GENERAL: NAD SKIN: Warm and dry. HEAD: Normocephalic. EYES: No scleral icterus. No injection or drainage. NECK: Supple, trachea midline. No JVD or lymphadenopathy. CARDIOVASCULAR: Regular rate and rhythm without murmurs, gallops, or rubs. RESPIRATORY: Breath sounds equal bilaterally. No accessory muscle use. GASTROINTESTINAL: Abdomen soft, non-tender, nondistended. MUSCULOSKELETAL: No cyanosis, or edema. Right ankle repair-external fixator in place BACK: Nontender without obvious deformity. No CVA tenderness. Results - Labs CBC & Chem 7: 01/15/18 06:20 01/15/18 06:20 Laboratory Results - last 24 hr 01/15/18 01/15/18 06:20 06:20 WBC 14.4 H RBC 3.77 L Hgb 11.0 L Hct 33.0 L MCV 87.7 MCH 29.1 MCHC 33.2 RDW 16.4 Plt Count 397 MPV 8.2 Neut % (Auto) 82.7 H Lymph % (Auto) 12.8 [place] % (Auto) 4.2 Eos % (Auto) 0.0 Baso % (Auto) 0.3 Neut # (Auto) 11.9 H Lymph # (Auto) 1.8 [place] # (Auto) 0.6 Eos # (Auto) 0.0 Baso # (Auto) 0.0 WBC Differential . Differential Comment Auto diff final Sodium 141 Potassium 3.9 Chloride 106 Carbon Dioxide 26.0 Anion Gap 9 BUN 7 Creatinine 0.81 Estimated GFR Greater than 89 Random Glucose 114 H Calcium 8.9 D Total Bilirubin 0.2 AST 31 ALT 17 Alkaline Phosphatase 74 Total Protein 7.1 Albumin 3.1 L - Imaging Impressions Ankle CT 01/14/18 08:37 CONCLUSION: 1. Near-anatomic alignment across the tibiotalar joint. 2. Fragmentation of at least two thirds of the articular surface of the tibial plafond with several small intra-articular fragments. Assessment and Plan - Assessment (1) Ankle fracture, right Code(s): S82.891A - Other fracture of right lower leg, initial encounter for closed fracture Status: Acute (2) Tobacco abuse Code(s): Z72.0 - Tobacco use Status: Acute (3) Tobacco abuse counseling Code(s): Z71.6 - Tobacco abuse counseling Status: Acute - Plan 27-year-old female with Right ankle fracture Tibia/Fibula xray with finding of Fractures of the distal tibia and fibula Orthopedic surgery ff Patient is s/p Closed reduction right distal tibia and fibula fractures, external fixation right ankle January 14, 2018 PLan for ORIF in 5-7 days PT to treat and eval Pain management accordingly Tobacco abuse Tobacco counseling cessation provided Nicotine patch
[2018-01-16] MEDS: Ketorolac Inj 30 MG/ML (IVP) Vial IV.PUSH SCH (05:39)
[2018-01-16] MEDS: Morphine Inj 4 MG/ML Vial IV.PUSH PRN ×2 (05:46→20:15)
--- NOTE | 2018-01-16 06:59 | P.PNOP ---
Subjective Interval history: Patient is resting comfortably. Pain is controlled. She states that the [place] does create some nausea. She would rather take the morphine only Physical Exam Vital signs: Vital Signs 01/15/18 08:00 01/15/18 16:00 01/15/18 20:00 Temperature 97.8 F 98.5 F 97.8 F Pulse Rate 75 92 H 91 H Respiratory Rate 19 16 20 Blood Pressure 134/73 130/65 136/94 H Pulse Oximetry 99 96 01/16/18 00:00 Temperature 98.1 F Pulse Rate 102 H Respiratory Rate 21 Blood Pressure 136/90 Pulse Oximetry 97 Intake & Output 01/15/18 01/15/18 01/16/18 06:59 18:59 06:59 Intake Total 50 / 50 1000 / 1000 Balance 50 / 50 1000 / 1000 Intake: IV 50 / 50 1000 / 1000 LR 1000 mL Inj 1,000 ML @ 80 1000 / 1000 mls/hr IV.CONT .[id number] [facility] Rx# :[id number] Ancef 2 GM Premix Inj 2 gm In 50 / 50 50 ml @ 200 mls/hr IV.SIG Q8H [facility] Rx#:[id number] Other: # Voids 7 Date of Last Bowel Movement 01/14/18 Narrative: GENERAL: NAD SKIN: Warm and dry. HEAD: Normocephalic. EYES: No scleral icterus. No injection or drainage. NECK: Supple, trachea midline. No JVD or lymphadenopathy. CARDIOVASCULAR: Regular rate and rhythm without murmurs, gallops, or rubs. RESPIRATORY: Breath sounds equal bilaterally. No accessory muscle use. GASTROINTESTINAL: Abdomen soft, non-tender, nondistended. MUSCULOSKELETAL: . Right ankle repair-external fixator in place. Skin is intact. Swelling of +3. Has some diminished sensation over the first toe. Good capillary refills and intact distal pulses BACK: Nontender without obvious deformity. No CVA tenderness. Results - Labs CBC & Chem 7: 01/15/18 06:20 01/15/18 06:20 Laboratory Results - last 24 hr 01/15/18 06:20 Sodium 141 Potassium 3.9 Chloride 106 Carbon Dioxide 26.0 Anion Gap 9 BUN 7 Creatinine 0.81 Estimated GFR Greater than 89 Random Glucose 114 H Calcium 8.9 D Total Bilirubin 0.2 AST 31 ALT 17 Alkaline Phosphatase 74 Total Protein 7.1 Albumin 3.1 L Assessment and Plan - Assessment and Plan Right comminuted distal tibia fracture status post external fixation POD 2 Strict nonweightbearing Elevation to decrease swelling Continue with ice Resume Toradol 6 doses beginning Friday 8 AM every 8 hours Hopefully she will be ready for surgery on Friday but may be later in the week depending on swelling. Continue with [place] at this time and have Zofran available
[2018-01-16] MEDS: Senna/Docusate Sodium 8.6/50 MG Tablet PO SCH ×2 (09:18→20:14)
[2018-01-16] MEDS: Enoxaparin Inj 40 MG/0.4 ML Syringe SQ SCH (09:19)
--- NOTE | 2018-01-16 15:44 | P.PNIM ---
Subjective Interval history: The patient said that the [employer] was not working for her. She requested oxycodone. She had no other acute complaints. Discussed with nursing. Physical Exam Vital signs: Vital Signs 01/15/18 16:00 01/15/18 20:00 01/16/18 00:00 Temperature 98.5 F 97.8 F 98.1 F Pulse Rate 92 H 91 H 102 H Respiratory Rate 16 20 21 Blood Pressure 130/65 136/94 H 136/90 Pulse Oximetry 96 97 01/16/18 06:52 01/16/18 08:00 01/16/18 09:18 Temperature 98.1 F 98.4 F Pulse Rate 88 83 Respiratory Rate 20 16 16 Blood Pressure 146/69 H 164/73 H Pulse Oximetry 95 98 01/16/18 09:51 01/16/18 12:00 Temperature 98.5 F Pulse Rate 91 H Respiratory Rate 4 L 16 Blood Pressure 143/79 H Pulse Oximetry 98 Intake & Output 01/15/18 01/16/18 01/16/18 18:59 06:59 18:59 Intake Total 1650 / 1650 Balance 1650 / 1650 Weight 97.97 kg Intake: IV 1000 / 1000 LR 1000 mL Inj 1,000 ML @ 80 1000 / 1000 mls/hr IV.CONT .[id number] [facility] Rx# :[id number] Oral 650 / 650 Other: # Voids 3 Date of Last Bowel Movement 01/14/18 01/14/18 Narrative: GENERAL: NAD SKIN: Warm and dry. HEAD: Normocephalic. EYES: No scleral icterus. No injection or drainage. NECK: Supple, trachea midline. No JVD or lymphadenopathy. CARDIOVASCULAR: Regular rate and rhythm without murmurs, gallops, or rubs. RESPIRATORY: Breath sounds equal bilaterally. No accessory muscle use. GASTROINTESTINAL: Abdomen soft, non-tender, nondistended. MUSCULOSKELETAL: No cyanosis, or edema. Right ankle repair-external fixator in place BACK: Nontender without obvious deformity. No CVA tenderness. Results - Labs CBC & Chem 7: 01/15/18 06:20 01/15/18 06:20 Assessment and Plan - Assessment (1) Ankle fracture, right Code(s): S82.891A - Other fracture of right lower leg, initial encounter for closed fracture Status: Acute (2) Tobacco abuse Code(s): Z72.0 - Tobacco use Status: Acute (3) Tobacco abuse counseling Code(s): Z71.6 - Tobacco abuse counseling Status: Acute - Plan 27-year-old female with Right ankle fracture Tibia/Fibula xray with finding of Fractures of the distal tibia and fibula Orthopedic surgery ff Patient is s/p Closed reduction right distal tibia and fibula fractures, external fixation right ankle January 14, 2018 Plan for ORIF possibly on Friday PT to treat and eval Pain management accordingly. Switch [place] to Percocet. Tobacco abuse Tobacco counseling cessation provided Nicotine patch PPx: Per surgery
[2018-01-16] MEDS: oxyCODONE/Acetaminophen 10/325 Tablet PO PRN ×2 (17:00→21:58)
[2018-01-17] MEDS: oxyCODONE/Acetaminophen 10/325 Tablet PO PRN ×4 (04:24→21:55)
[2018-01-17 07:38] LABS: Baso % (Auto) 0.4 % (0.0-2.0); Eos # (Auto) 0.2 th/mm3 (0.0-0.4); Eos % (Auto) 2.1 % (0.0-4.0); Hematocrit 34.1 % (35.0-46.0); Hemoglobin 11.3 gm/dL (11.6-15.3); Lymph # (Auto) 2.7 th/mm3 (1.0-4.8); Lymph % (Auto) 36.5 % (9.0-44.0); Mean Corpuscular Hemoglobin 28.9 pg (27.0-34.0); Mean Corpuscular Volume 87.5 fL (80.0-100.0); Mean Platelet Volume 7.9 fL (7.0-11.0); Mono # (Auto) 0.5 th/mm3 (0.0-0.9); Mono % (Auto) 6.9 % (0.0-8.0); Neut % (Auto) 54.1 % (16.0-70.0); Platelet Count 356 th/mm3 (150-450); Red Cell Distribution Width 16.1 % (11.6-17.2); White Blood Count 7.4 th/mm3 (4.0-11.0)
[2018-01-17] MEDS: Enoxaparin Inj 40 MG/0.4 ML Syringe SQ SCH (08:19)
[2018-01-17] MEDS: Senna/Docusate Sodium 8.6/50 MG Tablet PO SCH ×2 (08:19→21:55)
--- NOTE | 2018-01-17 08:32 | P.PNOP ---
Subjective Interval history: pain tolerable Physical Exam Vital signs: Vital Signs 01/16/18 09:18 01/16/18 09:51 01/16/18 12:00 Temperature 98.5 F Pulse Rate 91 H Respiratory Rate 16 4 L 16 Blood Pressure 143/79 H Pulse Oximetry 98 01/16/18 16:00 01/16/18 20:00 01/17/18 00:00 Temperature 98.4 F 98.3 F 98.5 F Pulse Rate 87 82 91 H Respiratory Rate 16 18 18 Blood Pressure 134/77 129/65 Pulse Oximetry 100 96 95 01/17/18 04:00 Temperature 97.9 F Pulse Rate 81 Respiratory Rate 18 Blood Pressure 154/92 H Pulse Oximetry 96 Intake & Output 01/16/18 01/17/18 01/17/18 18:59 06:59 18:59 Intake Total 600 / 600 Balance 600 / 600 Intake: Oral 600 / 600 Other: # Voids 4 Date of Last Bowel Movement 01/14/18 01/14/18 Narrative: RLE ex fix intact no erythema, no drainage from pin sites swelling neg homans nvi Results - Labs CBC & Chem 7: 01/17/18 07:00 01/15/18 06:20 Laboratory Results - last 24 hr 01/17/18 07:00 WBC 7.4 RBC 3.90 L Hgb 11.3 L Hct 34.1 L MCV 87.5 MCH 28.9 MCHC 33.0 RDW 16.1 Plt Count 356 MPV 7.9 Neut % (Auto) 54.1 Lymph % (Auto) 36.5 [place] % (Auto) 6.9 Eos % (Auto) 2.1 Baso % (Auto) 0.4 Neut # (Auto) 4.0 Lymph # (Auto) 2.7 [place] # (Auto) 0.5 Eos # (Auto) 0.2 Baso # (Auto) 0.0 WBC Differential . Differential Comment Auto diff final Assessment and Plan - Assessment and Plan Right comminuted distal tibia fracture status post external fixation POD 3 Strict nonweightbearing Elevation to decrease swelling Continue with ice Resume Toradol 6 doses beginning Friday 8 AM every 8 hours Hopefully she will be ready for surgery on Friday but may be later in the week depending on swelling. Continue with [facility] at this time and have Zofran available
[2018-01-17] MEDS: Morphine Inj 4 MG/ML Vial IV.PUSH PRN ×2 (14:11→19:30)
--- NOTE | 2018-01-17 15:00 | P.PNIM ---
Subjective Interval history: The patient said that the Percocet was not helping that much. She said it just made her sleepy. She was interested in trying some muscle relaxer. She has not worked with physical therapy today. She had no acute complaints. Discussed with nursing. Physical Exam Vital signs: Vital Signs 01/16/18 16:00 01/16/18 20:00 01/17/18 00:00 Temperature 98.4 F 98.3 F 98.5 F Pulse Rate 87 82 91 H Respiratory Rate 16 18 Blood Pressure 134/77 129/65 Pulse Oximetry 100 96 95 01/17/18 04:00 01/17/18 08:00 01/17/18 10:00 Temperature 97.9 F 97.9 F Pulse Rate 81 79 Respiratory Rate 18 Blood Pressure 154/92 H 141/76 H Pulse Oximetry 96 98 01/17/18 12:00 Temperature 98.5 F Pulse Rate 97 H Respiratory Rate 18 Blood Pressure 132/69 Pulse Oximetry 98 Intake & Output 01/16/18 01/17/18 01/17/18 18:59 06:59 18:59 Intake Total 600 / 600 Balance 600 / 600 Intake: Oral 600 / 600 Other: # Voids 4 Date of Last Bowel Movement 01/14/18 01/14/18 01/14/18 Narrative: GENERAL: NAD SKIN: Warm and dry. HEAD: Normocephalic. EYES: No scleral icterus. No injection or drainage. NECK: Supple, trachea midline. No JVD or lymphadenopathy. CARDIOVASCULAR: Regular rate and rhythm without murmurs, gallops, or rubs. RESPIRATORY: Breath sounds equal bilaterally. No accessory muscle use. GASTROINTESTINAL: Abdomen soft, non-tender, nondistended. MUSCULOSKELETAL: No cyanosis, or edema. Right ankle repair-external fixator in place, tender to palpation. BACK: Nontender without obvious deformity. No CVA tenderness. Results - Labs CBC & Chem 7: 01/17/18 07:00 01/15/18 06:20 Laboratory Results - last 24 hr 01/17/18 07:00 WBC 7.4 RBC 3.90 L Hgb 11.3 L Hct 34.1 L MCV 87.5 MCH 28.9 MCHC 33.0 RDW 16.1 Plt Count 356 MPV 7.9 Neut % (Auto) 54.1 Lymph % (Auto) 36.5 [place] % (Auto) 6.9 Eos % (Auto) 2.1 Baso % (Auto) 0.4 Neut # (Auto) 4.0 Lymph # (Auto) 2.7 [place] # (Auto) 0.5 Eos # (Auto) 0.2 Baso # (Auto) 0.0 WBC Differential . Differential Comment Auto diff final Assessment and Plan - Assessment (1) Ankle fracture, right Code(s): S82.891A - Other fracture of right lower leg, initial encounter for closed fracture Status: Acute (2) Tobacco abuse Code(s): Z72.0 - Tobacco use Status: Acute (3) Tobacco abuse counseling Code(s): Z71.6 - Tobacco abuse counseling Status: Acute - Plan 27-year-old female with Right ankle fracture Tibia/Fibula xray with finding of Fractures of the distal tibia and fibula Orthopedic surgery following Patient is s/p closed reduction right distal tibia and fibula fractures, external fixation right ankle January 14, 2018 Plan for ORIF early next week PT to treat and eval Pain management accordingly. Switched [place] to Percocet. Add gabapentin. Tobacco abuse Tobacco counseling cessation provided Nicotine patch Anemia Hgb has been stable. - monitor CBC as needed. PPx: Per surgery
[2018-01-17] MEDS: Gabapentin 300 MG Capsule PO SCH (15:48)
[2018-01-17] MEDS ORDERED: Polyethylene Glycol 3350 17 GM Packet PO ONE (15:49)
[2018-01-18] MEDS: Morphine Inj 4 MG/ML Vial IV.PUSH PRN ×6 (00:02→21:47)
[2018-01-18] MEDS: oxyCODONE/Acetaminophen 10/325 Tablet PO PRN ×4 (02:32→15:04)
[2018-01-18] MEDS: Gabapentin 300 MG Capsule PO SCH ×3 (09:06→17:36)
[2018-01-18] MEDS: Enoxaparin Inj 40 MG/0.4 ML Syringe SQ SCH (09:06)
[2018-01-18] MEDS: Senna/Docusate Sodium 8.6/50 MG Tablet PO SCH ×2 (09:06→21:47)
--- NOTE | 2018-01-18 13:38 | P.PNIM ---
Subjective Interval history: The patient said that she was still constipated. She said that the gabapentin seems to be helping. She did not work with physical therapy today. She says she worked with them yesterday. Physical Exam Vital signs: Vital Signs 01/17/18 16:00 01/17/18 18:50 01/17/18 20:00 Temperature 98.5 F 98.9 F Pulse Rate 87 91 H Respiratory Rate 18 18 18 Blood Pressure 149/82 H 135/76 Pulse Oximetry 99 96 01/18/18 00:00 01/18/18 03:02 01/18/18 08:00 Temperature 98.3 F 98.0 F Pulse Rate 88 85 Respiratory Rate 18 17 17 Blood Pressure 136/79 132/72 Pulse Oximetry 99 97 01/18/18 11:19 01/18/18 12:00 Temperature 97.7 F Pulse Rate 94 H Respiratory Rate 16 18 Blood Pressure 152/73 H Pulse Oximetry 96 Intake & Output 01/17/18 01/18/18 01/18/18 18:59 06:59 18:59 Intake Total 1200 / 1200 Balance 1200 / 1200 Weight 97.9 kg Intake: Oral 1200 / 1200 Other: # Voids 3 2 Date of Last Bowel Movement 01/14/18 Narrative: GENERAL: NAD SKIN: Warm and dry. HEAD: Normocephalic. EYES: No scleral icterus. No injection or drainage. NECK: Supple, trachea midline. No JVD or lymphadenopathy. CARDIOVASCULAR: Regular rate and rhythm without murmurs, gallops, or rubs. RESPIRATORY: Breath sounds equal bilaterally. No accessory muscle use. GASTROINTESTINAL: Abdomen soft, non-tender, nondistended. MUSCULOSKELETAL: No cyanosis, or edema. Right ankle repair-external fixator in place, tender to palpation. BACK: Nontender without obvious deformity. No CVA tenderness. Results - Labs CBC & Chem 7: 01/17/18 07:00 01/15/18 06:20 Assessment and Plan - Assessment (1) Ankle fracture, right Code(s): S82.891A - Other fracture of right lower leg, initial encounter for closed fracture Status: Acute (2) Tobacco abuse Code(s): Z72.0 - Tobacco use Status: Acute (3) Tobacco abuse counseling Code(s): Z71.6 - Tobacco abuse counseling Status: Acute - Plan 27-year-old female with Right ankle fracture Tibia/Fibula xray with finding of Fractures of the distal tibia and fibula Orthopedic surgery following Patient is s/p closed reduction right distal tibia and fibula fractures, external fixation right ankle January 14, 2018 Plan for ORIF early this week PT to treat and eval Pain management accordingly. Switched [place] to Percocet. Added gabapentin. Constipation Ongoing. - Dulcolax PO. - suppository if needed. Tobacco abuse Tobacco counseling cessation provided Nicotine patch Anemia Hgb has been stable. - monitor CBC as needed. PPx: Per surgery
[2018-01-19] MEDS: oxyCODONE/Acetaminophen 10/325 Tablet PO PRN ×6 (00:08→22:20)
[2018-01-19] MEDS: Morphine Inj 4 MG/ML Vial IV.PUSH PRN ×5 (02:21→20:05)
[2018-01-19] MEDS: Ketorolac Inj 30 MG/ML (IVP) Vial IV.PUSH PRN ×3 (02:22→20:04)
--- NOTE | 2018-01-19 06:34 | P.PNOP ---
Subjective Interval history: s/p exfix right distal tibia fx doign well. pain controlled. no complaints. Physical Exam Vital signs: Vital Signs 01/18/18 08:00 01/18/18 11:19 01/18/18 12:00 Temperature 98.0 F 97.7 F Pulse Rate 85 94 H Respiratory Rate 17 16 18 Blood Pressure 132/72 152/73 H Pulse Oximetry 97 96 01/18/18 13:30 01/18/18 15:34 01/18/18 16:00 Temperature 98.6 F Pulse Rate 98 H Respiratory Rate 16 16 18 Blood Pressure 134/65 Pulse Oximetry 97 01/18/18 20:00 01/19/18 00:00 01/19/18 00:38 Temperature 98.2 F 98.5 F Pulse Rate 96 H 101 H Respiratory Rate 18 18 17 Blood Pressure 138/71 121/67 Pulse Oximetry 98 97 01/19/18 02:52 Temperature Pulse Rate Respiratory Rate 17 Blood Pressure Pulse Oximetry Intake & Output 01/18/18 01/18/18 01/19/18 06:59 18:59 06:59 Intake Total 1200 / 1200 Balance 1200 / 1200 Weight 97.9 kg 97.9 kg Intake: Oral 1200 / 1200 Other: # Voids 2 3 3 Date of Last Bowel Movement 01/14/18 01/14/18 Narrative: RLE: +exfix. pin sits clean. 3+ swelling of ankle. nvi Results - Labs CBC & Chem 7: 01/17/18 07:00 01/15/18 06:20 Assessment and Plan - Assessment and Plan 1) Right comminuted distal tibia fracture status post external fixation POD 4 Strict nonweightbearing Elevation to decrease swelling Continue with ice Resume Toradol 6 doses beginning Friday 8 AM every 8 hours Hopefully she will be ready for surgery on Friday but may be later in the week depending on swelling. Continue with [facility] at this time and have Zofran available
[2018-01-19] MEDS: Senna/Docusate Sodium 8.6/50 MG Tablet PO SCH ×2 (08:57→20:05)
[2018-01-19] MEDS: Enoxaparin Inj 40 MG/0.4 ML Syringe SQ SCH (08:57)
[2018-01-19] MEDS: Gabapentin 300 MG Capsule PO SCH ×3 (08:57→18:05)
[2018-01-19] MEDS ORDERED: Bisacodyl 10 MG Supp RECTAL ONE (14:57)
--- NOTE | 2018-01-19 15:04 | P.PNIM ---
Subjective Interval history: The pt still has not had a bowel movement. She says her leg is still swollen. Discussed with nursing. Physical Exam Vital signs: Vital Signs 01/18/18 15:34 01/18/18 16:00 01/18/18 20:00 Temperature 98.6 F 98.2 F Pulse Rate 98 H 96 H Respiratory Rate 16 18 18 Blood Pressure 134/65 138/71 Pulse Oximetry 97 98 01/19/18 00:00 01/19/18 00:38 01/19/18 02:52 Temperature 98.5 F Pulse Rate 101 H Respiratory Rate 18 17 17 Blood Pressure 121/67 Pulse Oximetry 97 01/19/18 05:16 01/19/18 08:00 01/19/18 12:00 Temperature 98.2 F 98.5 F Pulse Rate 82 93 H Respiratory Rate 18 17 21 Blood Pressure 109/76 130/79 Pulse Oximetry 98 100 01/19/18 12:10 Temperature Pulse Rate Respiratory Rate 21 Blood Pressure Pulse Oximetry Intake & Output 01/18/18 01/19/18 01/19/18 18:59 06:59 18:59 Intake Total 1200 / 1200 Balance 1200 / 1200 Weight 97.9 kg Intake: Oral 1200 / 1200 Other: # Voids 3 3 Date of Last Bowel Movement 01/14/18 01/14/18 01/14/18 Narrative: GENERAL: NAD SKIN: Warm and dry. HEAD: Normocephalic. EYES: No scleral icterus. No injection or drainage. NECK: Supple, trachea midline. No JVD or lymphadenopathy. CARDIOVASCULAR: Regular rate and rhythm without murmurs, gallops, or rubs. RESPIRATORY: Breath sounds equal bilaterally. No accessory muscle use. GASTROINTESTINAL: Abdomen soft, non-tender, nondistended. MUSCULOSKELETAL: Right ankle repair-external fixator in place, tender to palpation, swollen. BACK: Nontender without obvious deformity. No CVA tenderness. Results - Labs CBC & Chem 7: 01/17/18 07:00 01/15/18 06:20 Assessment and Plan - Assessment (1) Ankle fracture, right Code(s): S82.891A - Other fracture of right lower leg, initial encounter for closed fracture Status: Acute (2) Tobacco abuse Code(s): Z72.0 - Tobacco use Status: Acute (3) Tobacco abuse counseling Code(s): Z71.6 - Tobacco abuse counseling Status: Acute - Plan 27-year-old female with Right ankle fracture Tibia/Fibula xray with finding of Fractures of the distal tibia and fibula Orthopedic surgery following Patient is s/p closed reduction right distal tibia and fibula fractures, external fixation right ankle January 14, 2018 Plan for ORIF, possibly tomorrow. PT to treat and eval Pain management accordingly. Switched [place] to Percocet. Added gabapentin. Toradol for swelling. Constipation Ongoing. - Dulcolax suppository if lactulose does not work. Tobacco abuse Tobacco counseling cessation provided Nicotine patch Anemia Hgb has been stable. - monitor CBC as needed. PPx: Per surgery
[2018-01-20] MEDS: Morphine Inj 4 MG/ML Vial IV.PUSH PRN ×5 (01:09→19:05)
[2018-01-20] MEDS ORDERED: Chlorhexidine Gluconate 2% 1 Pack (2 Cloths) TOPICAL SCH (02:00)
[2018-01-20] MEDS ORDERED: Sodium Chlor 0.9% Inj 500 ML IV.SIG SCH (02:00)
[2018-01-20] MEDS: oxyCODONE/Acetaminophen 10/325 Tablet PO PRN ×4 (03:43→22:02)
[2018-01-20] MEDS: Ketorolac Inj 30 MG/ML (IVP) Vial IV.PUSH PRN ×2 (05:09→20:02)
--- NOTE | 2018-01-20 06:33 | P.PNOP ---
Subjective Interval history: s/p exfix right ankle doing well. pain controlled Physical Exam Vital signs: Vital Signs 01/19/18 08:00 01/19/18 12:00 01/19/18 12:10 Temperature 98.2 F 98.5 F Pulse Rate 82 93 H Respiratory Rate 17 21 21 Blood Pressure 109/76 130/79 Pulse Oximetry 98 100 01/19/18 16:00 01/19/18 20:00 01/20/18 00:00 Temperature 98.7 F 98.5 F 98.6 F Pulse Rate 105 H 102 H 105 H Respiratory Rate 18 19 19 Blood Pressure 117/62 131/63 133/67 Pulse Oximetry 96 100 100 01/20/18 04:00 Temperature 98.4 F Pulse Rate 84 Respiratory Rate 19 Blood Pressure 126/70 Pulse Oximetry 100 Intake & Output 01/19/18 01/19/18 01/20/18 06:59 18:59 06:59 Weight 97.9 kg Other: # Voids 3 4 Date of Last Bowel Movement 01/14/18 01/14/18 Narrative: RLE: 3+swelling of ankle. pin sites clean and dry. intact. NVI Results - Labs CBC & Chem 7: 01/17/18 07:00 01/15/18 06:20 Assessment and Plan - Assessment and Plan 1) Right comminuted distal tibia fracture status post external fixation POD 6 Strict nonweightbearing Elevation to decrease swelling Continue with ice Resume Toradol 6 doses beginning Friday 8 AM every 8 hours still too swollen for surgery. will re-eval later this week Continue with [place] at this time and have Zofran available
[2018-01-20] MEDS: Enoxaparin Inj 40 MG/0.4 ML Syringe SQ SCH ×2 (07:39→10:35)
[2018-01-20] MEDS: Gabapentin 300 MG Capsule PO SCH ×4 (07:39→17:30)
[2018-01-20] MEDS: Senna/Docusate Sodium 8.6/50 MG Tablet PO SCH ×3 (07:40→20:02)
--- NOTE | 2018-01-20 15:37 | P.PNIM ---
Subjective Interval history: The patient endorsed some nausea which improved with medication. She said ice was hurting her leg. She has been tolerating a diet. She finally had a bowel movement. Discussed with nursing. Physical Exam Vital signs: Vital Signs 01/19/18 16:00 01/19/18 20:00 01/20/18 00:00 Temperature 98.7 F 98.5 F 98.6 F Pulse Rate 105 H 102 H 105 H Respiratory Rate 18 19 19 Blood Pressure 117/62 131/63 133/67 Pulse Oximetry 96 100 100 01/20/18 04:00 01/20/18 08:00 01/20/18 12:00 Temperature 98.4 F 98.3 F 98.4 F Pulse Rate 84 97 H 108 H Respiratory Rate 19 16 Blood Pressure 126/70 119/79 138/93 H Pulse Oximetry 100 97 16 L Intake & Output 01/19/18 01/20/18 01/20/18 18:59 06:59 18:59 Intake Total 0 / 0 Balance 0 / 0 Weight 98 kg Intake: Oral 0 / 0 Other: # Voids 4 4 Date of Last Bowel Movement 01/14/18 01/19/18 01/19/18 Narrative: GENERAL: NAD SKIN: Warm and dry. HEAD: Normocephalic. EYES: No scleral icterus. No injection or drainage. NECK: Supple, trachea midline. No JVD or lymphadenopathy. CARDIOVASCULAR: Regular rate and rhythm without murmurs, gallops, or rubs. RESPIRATORY: Breath sounds equal bilaterally. No accessory muscle use. GASTROINTESTINAL: Abdomen soft, non-tender, nondistended. MUSCULOSKELETAL: Right ankle repair-external fixator in place, tender to palpation, swollen. BACK: Nontender without obvious deformity. No CVA tenderness. Results - Labs CBC & Chem 7: 01/17/18 07:00 01/15/18 06:20 Assessment and Plan - Assessment (1) Ankle fracture, right Code(s): S82.891A - Other fracture of right lower leg, initial encounter for closed fracture Status: Acute (2) Tobacco abuse Code(s): Z72.0 - Tobacco use Status: Acute (3) Tobacco abuse counseling Code(s): Z71.6 - Tobacco abuse counseling Status: Acute - Plan 27-year-old female with Right ankle fracture Tibia/Fibula xray with finding of Fractures of the distal tibia and fibula Orthopedic surgery following Patient is s/p closed reduction right distal tibia and fibula fractures, external fixation right ankle January 14, 2018 Plan for ORIF this week when swelling is improved. PT to treat and eval Pain management accordingly. Switched [place] to Percocet. Added gabapentin. Toradol for swelling. Keep leg elevated. Ice intermittently. Constipation Ongoing. - Dulcolax suppository if lactulose does not work. Tobacco abuse Tobacco counseling cessation provided Nicotine patch Anemia Hgb has been stable. - monitor CBC as needed. PPx: Per surgery
[2018-01-21] MEDS: Morphine Inj 4 MG/ML Vial IV.PUSH PRN ×5 (00:11→19:54)
[2018-01-21] MEDS: oxyCODONE/Acetaminophen 10/325 Tablet PO PRN ×5 (03:26→22:38)
[2018-01-21] MEDS: Ketorolac Inj 30 MG/ML (IVP) Vial IV.PUSH PRN ×3 (04:54→22:45)
--- NOTE | 2018-01-21 06:52 | P.PNOP ---
Subjective Interval history: s/p exfix right distal tibia fx doing well. pain controlled. patient reports elevating foot all day Physical Exam Vital signs: Vital Signs 01/20/18 08:00 01/20/18 12:00 01/20/18 20:00 Temperature 98.3 F 98.4 F 97.9 F Pulse Rate 97 H 108 H 113 H Respiratory Rate 16 20 Blood Pressure 119/79 138/93 H 127/67 Pulse Oximetry 97 16 L 95 01/21/18 00:00 01/21/18 04:00 Temperature 98.4 F 98.3 F Pulse Rate 94 H 97 H Respiratory Rate 20 20 Blood Pressure 111/57 L 119/56 L Pulse Oximetry 98 97 Intake & Output 01/20/18 01/20/18 01/21/18 06:59 18:59 06:59 Intake Total 0 / 0 Balance 0 / 0 Weight 98 kg 104.5 kg Intake: Oral 0 / 0 Other: # Voids 4 1 Date of Last Bowel Movement 01/19/18 01/19/18 01/20/18 Narrative: RLE: 2+ swelling of ankle. pin sites clean and dry. nvi Results - Labs CBC & Chem 7: 01/17/18 07:00 01/15/18 06:20 Assessment and Plan - Assessment and Plan 1) Right comminuted distal tibia fracture status post external fixation POD 7 Strict nonweightbearing Elevation to decrease swelling Continue with ice Toradol for swelling still too swollen for surgery. will re-eval later this week Continue with [place] at this time and have Zofran available
[2018-01-21] MEDS: Enoxaparin Inj 40 MG/0.4 ML Syringe SQ SCH (09:29)
[2018-01-21] MEDS: Senna/Docusate Sodium 8.6/50 MG Tablet PO SCH ×2 (09:29→22:38)
[2018-01-21] MEDS: Gabapentin 300 MG Capsule PO SCH ×3 (09:29→17:02)
--- NOTE | 2018-01-21 17:05 | P.PNIM ---
Subjective Interval history: The patient said that she felt cold in the morning and her leg got tight and painful. She says she has been having a lot of pain in her right leg. She says she has been keeping that right leg elevated all day long. Discussed with nursing at the bedside. Physical Exam Vital signs: Vital Signs 01/20/18 20:00 01/21/18 00:00 01/21/18 04:00 Temperature 97.9 F 98.4 F 98.3 F Pulse Rate 113 H 94 H 97 H Respiratory Rate 20 20 20 Blood Pressure 127/67 111/57 L 119/56 L Pulse Oximetry 95 98 97 Intake & Output 01/20/18 01/21/18 01/21/18 18:59 06:59 18:59 Weight 104.5 kg Other: # Voids 1 Date of Last Bowel Movement 01/19/18 01/20/18 01/20/18 Narrative: GENERAL: NAD SKIN: Warm and dry. HEAD: Normocephalic. EYES: No scleral icterus. No injection or drainage. NECK: Supple, trachea midline. No JVD or lymphadenopathy. CARDIOVASCULAR: Regular rate and rhythm without murmurs, gallops, or rubs. RESPIRATORY: Breath sounds equal bilaterally. No accessory muscle use. GASTROINTESTINAL: Abdomen soft, non-tender, nondistended. MUSCULOSKELETAL: Right ankle repair-external fixator in place, tender to palpation, swollen. BACK: Nontender without obvious deformity. No CVA tenderness. Results - Labs CBC & Chem 7: 01/17/18 07:00 01/15/18 06:20 Assessment and Plan - Assessment (1) Ankle fracture, right Code(s): S82.891A - Other fracture of right lower leg, initial encounter for closed fracture Status: Acute (2) Tobacco abuse Code(s): Z72.0 - Tobacco use Status: Acute (3) Tobacco abuse counseling Code(s): Z71.6 - Tobacco abuse counseling Status: Acute - Plan 27-year-old female with Right ankle fracture Tibia/Fibula xray with finding of Fractures of the distal tibia and fibula Orthopedic surgery following Patient is s/p closed reduction right distal tibia and fibula fractures, external fixation right ankle January 14, 2018 Plan for ORIF this week when swelling is improved. PT to treat and eval Pain management accordingly. Switched [place] to Percocet. Added gabapentin. Toradol for swelling. Keep leg elevated. Ice intermittently. Complaining of increased leg tightness and swelling. Add standing Flexeril to assist with muscle spasms. Constipation Ongoing. - Dulcolax suppository if lactulose does not work. Resolved. Tobacco abuse Tobacco counseling cessation provided Nicotine patch Anemia Hgb has been stable. - monitor CBC as needed. PPx: Per surgery
[2018-01-22] MEDS: Morphine Inj 4 MG/ML Vial IV.PUSH PRN ×6 (00:03→22:36)
[2018-01-22] MEDS: oxyCODONE/Acetaminophen 10/325 Tablet PO PRN ×5 (03:13→21:13)
--- NOTE | 2018-01-22 06:31 | P.PNOP ---
Subjective Interval history: s/p right distal tibia fx with exfix no changes. Physical Exam Vital signs: Vital Signs 01/21/18 08:00 01/21/18 12:00 01/21/18 16:00 Temperature 98.5 F 98 F 98.7 F Pulse Rate 90 90 110 H Respiratory Rate 16 18 16 Blood Pressure 135/62 120/81 137/58 L Pulse Oximetry 96 98 16 L 01/21/18 20:00 01/22/18 00:00 Temperature 98.6 F 97.8 F Pulse Rate 103 H 90 Respiratory Rate 16 18 Blood Pressure 125/60 129/70 Pulse Oximetry 97 96 Intake & Output 01/21/18 01/21/18 01/22/18 06:59 18:59 06:59 Intake Total 960 / 960 Balance 960 / 960 Weight 104.5 kg Intake: Oral 960 / 960 Other: # Voids 1 3 Date of Last Bowel Movement 01/20/18 01/20/18 Narrative: RLE: 2+ swelling of ankle. exfix in place. nvi. Results - Labs CBC & Chem 7: 01/17/18 07:00 01/15/18 06:20 Assessment and Plan - Assessment and Plan 1) Right comminuted distal tibia fracture status post external fixation POD 8 Strict nonweightbearing Elevation to decrease swelling Continue with ice begin ibuprofen 400mg TID still too swollen for surgery. will re-eval again friday. Continue with [place] at this time and have Zofran available
[2018-01-22] MEDS: Ibuprofen 400 MG Tablet PO SCH ×3 (08:08→22:36)
[2018-01-22] MEDS: Gabapentin 300 MG Capsule PO SCH ×3 (08:35→18:05)
[2018-01-22] MEDS: Senna/Docusate Sodium 8.6/50 MG Tablet PO SCH ×2 (08:35→21:12)
[2018-01-22] MEDS: Enoxaparin Inj 40 MG/0.4 ML Syringe SQ SCH (08:36)
[2018-01-22] MEDS: Ketorolac Inj 30 MG/ML (IVP) Vial IV.PUSH PRN ×2 (08:42→16:50)
--- NOTE | 2018-01-22 11:16 | P.PNIM ---
Subjective Interval history: The patient says she is still having muscle spasms. She says that she may have to wait until Friday for surgery per the orthopedic team. Discussed with nursing at the bedside. Physical Exam Vital signs: Vital Signs 01/21/18 12:00 01/21/18 16:00 01/21/18 20:00 Temperature 98 F 98.7 F 98.6 F Pulse Rate 90 110 H 103 H Respiratory Rate 18 16 16 Blood Pressure 120/81 137/58 L 125/60 Pulse Oximetry 98 16 L 97 01/22/18 00:00 01/22/18 08:00 Temperature 97.8 F 97.4 F L Pulse Rate 90 94 H Respiratory Rate 18 16 Blood Pressure 129/70 128/64 Pulse Oximetry 96 98 Intake & Output 01/21/18 01/22/18 01/22/18 18:59 06:59 18:59 Intake Total 960 / 960 480 / 480 Balance 960 / 960 480 / 480 Weight 104.5 kg Intake: Oral 960 / 960 480 / 480 Other: # Voids 3 2 Date of Last Bowel Movement 01/20/18 01/20/18 Narrative: GENERAL: NAD SKIN: Warm and dry. HEAD: Normocephalic. EYES: No scleral icterus. No injection or drainage. NECK: Supple, trachea midline. No JVD or lymphadenopathy. CARDIOVASCULAR: Regular rate and rhythm without murmurs, gallops, or rubs. RESPIRATORY: Breath sounds equal bilaterally. No accessory muscle use. GASTROINTESTINAL: Abdomen soft, non-tender, nondistended. MUSCULOSKELETAL: Right ankle repair-external fixator in place, tender to palpation, swollen. BACK: Nontender without obvious deformity. No CVA tenderness. Results - Labs CBC & Chem 7: 01/17/18 07:00 01/15/18 06:20 Assessment and Plan - Assessment (1) Ankle fracture, right Code(s): S82.891A - Other fracture of right lower leg, initial encounter for closed fracture Status: Acute (2) Tobacco abuse Code(s): Z72.0 - Tobacco use Status: Acute (3) Tobacco abuse counseling Code(s): Z71.6 - Tobacco abuse counseling Status: Acute - Plan 27-year-old female with Right ankle fracture Tibia/Fibula xray with finding of Fractures of the distal tibia and fibula Orthopedic surgery following Patient is s/p closed reduction right distal tibia and fibula fractures, external fixation right ankle January 14, 2018 Plan for ORIF when swelling is improved. Possibly not until Friday. PT to treat and eval Pain management accordingly. Switched [place] to Percocet. Added gabapentin. Ibuprofen for swelling. Keep leg elevated. Ice intermittently. Complaining of increased leg tightness and swelling. Added standing Flexeril to assist with muscle spasms. Increase dose. Constipation Ongoing. - Dulcolax suppository if lactulose does not work. Resolved. Tobacco abuse Tobacco counseling cessation provided Nicotine patch Anemia Hgb has been stable. - monitor CBC as needed. PPx: Per surgery
[2018-01-23] MEDS: oxyCODONE/Acetaminophen 10/325 Tablet PO PRN ×5 (01:53→22:10)
[2018-01-23] MEDS: Ketorolac Inj 30 MG/ML (IVP) Vial IV.PUSH PRN ×2 (01:56→11:13)
[2018-01-23] MEDS: Morphine Inj 4 MG/ML Vial IV.PUSH PRN ×5 (03:44→23:38)
[2018-01-23] MEDS: Ibuprofen 400 MG Tablet PO SCH ×3 (06:25→22:09)
--- NOTE | 2018-01-23 06:26 | P.PNOP ---
Subjective Interval history: s/p exfix right distal tibia fx doing well no changes Physical Exam Vital signs: Vital Signs 01/22/18 08:00 01/22/18 12:00 01/22/18 16:00 Temperature 97.4 F L 97.5 F L 98.6 F Pulse Rate 94 H 105 H 106 H Respiratory Rate 16 16 16 Blood Pressure 128/64 147/70 H 125/68 Pulse Oximetry 98 98 96 01/22/18 21:43 01/22/18 22:38 01/23/18 00:00 Temperature 98 F Pulse Rate 96 H Respiratory Rate 18 18 18 Blood Pressure 127/59 L Pulse Oximetry 99 01/23/18 00:55 01/23/18 02:23 01/23/18 02:26 Temperature Pulse Rate Respiratory Rate 18 18 18 Blood Pressure Pulse Oximetry 01/23/18 03:59 01/23/18 04:00 Temperature 97.7 F Pulse Rate 100 H Respiratory Rate 18 18 Blood Pressure 120/74 Pulse Oximetry 99 Intake & Output 01/22/18 01/22/18 01/23/18 06:59 18:59 06:59 Intake Total 480 / 480 1800 / 1800 620 / 620 Balance 480 / 480 1800 / 1800 620 / 620 Weight 104.5 kg 104.5 kg Intake: Oral 480 / 480 1800 / 1800 620 / 620 Other: # Voids 2 2 3 Date of Last Bowel Movement 01/20/18 01/20/18 Narrative: RLE: 2+ swelling. nvi. pin sites clean and dry Results - Labs CBC & Chem 7: 01/17/18 07:00 01/15/18 06:20 Assessment and Plan - Assessment and Plan 1) Right comminuted distal tibia fracture status post external fixation POD 9 Strict nonweightbearing Elevation to decrease swelling Continue with ice begin ibuprofen 400mg TID still too swollen for surgery. will re-eval again friday. Continue with [place] at this time and have Zofran available npo after [place] hold lovenox after AM dose
[2018-01-23] MEDS: Enoxaparin Inj 40 MG/0.4 ML Syringe SQ SCH (07:59)
[2018-01-23] MEDS: Gabapentin 300 MG Capsule PO SCH ×3 (08:00→18:05)
[2018-01-23] MEDS: Senna/Docusate Sodium 8.6/50 MG Tablet PO SCH ×2 (08:00→22:09)
--- NOTE | 2018-01-23 10:59 | P.PNIM ---
Subjective Interval history: The patient had just ambulated back to her bed from the bathroom. She was having significant pain in that right lower extremity. She did not feel like working with physical therapy. Hoping she could have surgery tomorrow. Discussed with nursing. Physical Exam Vital signs: Vital Signs 01/22/18 12:00 01/22/18 16:00 01/22/18 21:43 Temperature 97.5 F L 98.6 F Pulse Rate 105 H 106 H Respiratory Rate 16 16 18 Blood Pressure 147/70 H 125/68 Pulse Oximetry 98 96 01/22/18 22:38 01/23/18 00:00 01/23/18 00:55 Temperature 98 F Pulse Rate 96 H Respiratory Rate 18 18 18 Blood Pressure 127/59 L Pulse Oximetry 99 01/23/18 02:23 01/23/18 02:26 01/23/18 03:59 Temperature Pulse Rate Respiratory Rate 18 18 18 Blood Pressure Pulse Oximetry 01/23/18 04:00 01/23/18 06:57 Temperature 97.7 F Pulse Rate 100 H Respiratory Rate 18 18 Blood Pressure 120/74 Pulse Oximetry 99 Intake & Output 01/22/18 01/23/18 01/23/18 18:59 06:59 18:59 Intake Total 1800 / 1800 620 / 620 Balance 1800 / 1800 620 / 620 Weight 104.5 kg Intake: Oral 1800 / 1800 620 / 620 Other: # Voids 2 3 Date of Last Bowel Movement 01/20/18 01/20/18 01/23/18 Narrative: GENERAL: NAD SKIN: Warm and dry. HEAD: Normocephalic. EYES: No scleral icterus. No injection or drainage. NECK: Supple, trachea midline. No JVD or lymphadenopathy. CARDIOVASCULAR: Regular rate and rhythm without murmurs, gallops, or rubs. RESPIRATORY: Breath sounds equal bilaterally. No accessory muscle use. GASTROINTESTINAL: Abdomen soft, non-tender, nondistended. MUSCULOSKELETAL: Right ankle repair-external fixator in place, tender to palpation, swollen. BACK: Nontender without obvious deformity. No CVA tenderness. Results - Labs CBC & Chem 7: 01/17/18 07:00 01/15/18 06:20 Assessment and Plan - Assessment (1) Ankle fracture, right Code(s): S82.891A - Other fracture of right lower leg, initial encounter for closed fracture Status: Acute (2) Tobacco abuse Code(s): Z72.0 - Tobacco use Status: Acute (3) Tobacco abuse counseling Code(s): Z71.6 - Tobacco abuse counseling Status: Acute - Plan 27-year-old female with Right ankle fracture Tibia/Fibula xray with finding of Fractures of the distal tibia and fibula Orthopedic surgery following Patient is s/p closed reduction right distal tibia and fibula fractures, external fixation right ankle January 14, 2018 Plan for ORIF when swelling is improved. Ortho is evaluating on a daily basis. PT to treat and eval Pain management accordingly. Switched [place] to Percocet. Added gabapentin. Ibuprofen for swelling. Keep leg elevated. Ice intermittently. Complaining of increased leg tightness and swelling. Added standing Flexeril to assist with muscle spasms. Constipation Ongoing. - on standing lactulose. Add standing Miralax. - suppository if needed. Tobacco abuse Tobacco counseling cessation provided Nicotine patch Anemia Hgb has been stable. - monitor CBC as needed. PPx: Per surgery Discharge Planning: Awaiting surgery
[2018-01-23] MEDS: Polyethylene Glycol 3350 17 GM Packet PO SCH (12:08)
[2018-01-24] MEDS: Morphine Inj 4 MG/ML Vial IV.PUSH PRN ×4 (05:37→20:02)
[2018-01-24] MEDS: Ibuprofen 400 MG Tablet PO SCH ×3 (06:13→22:30)
--- NOTE | 2018-01-24 06:53 | P.PNOP ---
Subjective Interval history: s/p right ankle exfix had issues with constipation last night Physical Exam Vital signs: Vital Signs 01/23/18 06:57 01/23/18 12:00 01/23/18 16:00 Temperature 97.9 F 99.2 F Pulse Rate 107 H 107 H Respiratory Rate 18 18 Blood Pressure 125/63 130/71 Pulse Oximetry 98 99 01/23/18 20:00 01/23/18 22:43 01/23/18 23:40 Temperature 98.6 F Pulse Rate 113 H Respiratory Rate 18 18 Blood Pressure 143/84 H Pulse Oximetry 98 01/24/18 01:01 01/24/18 01:15 01/24/18 06:03 Temperature 98.4 F Pulse Rate 103 H Respiratory Rate 18 18 Blood Pressure 129/59 L Pulse Oximetry 97 Intake & Output 01/23/18 01/23/18 01/24/18 06:59 18:59 06:59 Intake Total 620 / 620 480 / 480 Balance 620 / 620 480 / 480 Weight 104.5 kg Intake: Oral 620 / 620 480 / 480 Other: # Voids 3 2 Date of Last Bowel Movement 01/20/18 01/23/18 01/23/18 # Bowel Movements 2 Narrative: RLE: 2+swelling of right ankle. +exfix. pin sites clean and dry Results - Labs CBC & Chem 7: 01/17/18 07:00 01/15/18 06:20 Assessment and Plan - Assessment and Plan 1) Right comminuted distal tibia fracture status post external fixation POD 10 Strict nonweightbearing Elevation to decrease swelling Continue with ice begin ibuprofen 400mg TID still too swollen for surgery. will re-eval again beginning of week Continue with [place] at this time and have Zofran available resume lovenox
[2018-01-24] MEDS: oxyCODONE/Acetaminophen 10/325 Tablet PO PRN ×4 (08:52→22:30)
[2018-01-24] MEDS: Gabapentin 300 MG Capsule PO SCH ×3 (10:15→18:20)
[2018-01-24] MEDS: Polyethylene Glycol 3350 17 GM Packet PO SCH (10:16)
[2018-01-24] MEDS: Enoxaparin Inj 40 MG/0.4 ML Syringe SQ SCH (10:17)
[2018-01-24] MEDS: Senna/Docusate Sodium 8.6/50 MG Tablet PO SCH ×2 (10:18→21:51)
--- NOTE | 2018-01-24 14:24 | P.PNIM ---
Subjective Interval history: 01-23 The patient had just ambulated back to her bed from the bathroom. She was having significant pain in that right lower extremity. She did not feel like working with physical therapy. Hoping she could have surgery tomorrow. Discussed with nursing. 01-24 ON CHRONIC PAIN MEDS NEEDS TO BE ON CHRONIC MEDS FOR CONSTIPATION DW RN AND PT AND CM HAVING BM BUT FEELS CONSTIPATION SWITCH OFF FLEXERIL GO TO [facility] Physical Exam Vital signs: Vital Signs 01/23/18 16:00 01/23/18 20:00 01/23/18 22:43 Temperature 99.2 F 98.6 F Pulse Rate 107 H 113 H Respiratory Rate 18 18 18 Blood Pressure 130/71 143/84 H Pulse Oximetry 99 98 01/23/18 23:40 01/24/18 01:01 01/24/18 01:15 Temperature 98.4 F Pulse Rate 103 H Respiratory Rate 18 18 Blood Pressure 129/59 L Pulse Oximetry 97 01/24/18 06:03 01/24/18 06:59 01/24/18 08:00 Temperature 99 F 97.8 F Pulse Rate 108 H 115 H Respiratory Rate 18 18 16 Blood Pressure 139/65 146/60 H Pulse Oximetry 98 99 01/24/18 12:00 Temperature 98.2 F Pulse Rate 123 H Respiratory Rate 23 Blood Pressure 117/83 Pulse Oximetry 97 Intake & Output 01/23/18 01/24/18 01/24/18 18:59 06:59 18:59 Intake Total 480 / 480 473 / 473 Balance 480 / 480 473 / 473 Intake: Oral 480 / 480 473 / 473 Other: # Voids 2 3 Date of Last Bowel Movement 01/23/18 01/23/18 # Bowel Movements 2 Narrative: GENERAL: NAD SKIN: Warm and dry. HEAD: Normocephalic. EYES: No scleral icterus. No injection or drainage. NECK: Supple, trachea midline. No JVD or lymphadenopathy. CARDIOVASCULAR: Regular rate and rhythm without murmurs, gallops, or rubs. RESPIRATORY: Breath sounds equal bilaterally. No accessory muscle use. GASTROINTESTINAL: Abdomen soft, non-tender, nondistended. MUSCULOSKELETAL: Right ankle repair-external fixator in place, tender to palpation, swollen. BACK: Nontender without obvious deformity. No CVA tenderness. RLE: 2+swelling of right ankle. +exfix. pin sites clean and dry Results - Labs CBC & Chem 7: 01/17/18 07:00 01/15/18 06:20 Laboratory Tests 01/14/18 01/14/18 01/15/18 08:32 08:32 06:20 WBC 14.0 H 14.4 H RBC 4.02 3.77 L Hgb 11.7 11.0 L Hct 35.0 33.0 L MCV 87.0 87.7 MCH 29.2 29.1 MCHC 33.6 33.2 RDW 16.8 16.4 Plt Count 324 397 MPV 8.6 8.2 Prelim Diff (Auto) Slide review pending Neut % (Auto) 82.6 H 82.7 H Lymph % (Auto) 12.3 12.8 [place] % (Auto) 4.3 4.2 Eos % (Auto) 0.5 0.0 Baso % (Auto) 0.3 0.3 Neut # (Auto) 11.6 H 11.9 H Lymph # (Auto) 1.7 1.8 [place] # (Auto) 0.6 0.6 Eos # (Auto) 0.1 0.0 Baso # (Auto) 0.0 0.0 WBC Differential . . Diff Scan Auto diff confirmed Differential Comment . Auto diff final Sodium 142 Potassium 3.2 L Chloride 110 H Carbon Dioxide 20.9 L Anion Gap 11 BUN 9 Creatinine 0.87 Estimated GFR Greater than 89 Random Glucose 81 Calcium 8.1 L Total Bilirubin 0.3 AST 15 ALT 15 Alkaline Phosphatase 69 Total Protein 6.7 Albumin 3.0 L Beta HCG, Quant Less than 1 01/15/18 01/17/18 06:20 07:00 WBC 7.4 RBC 3.90 L Hgb 11.3 L Hct 34.1 L MCV 87.5 MCH 28.9 MCHC 33.0 RDW 16.1 Plt Count 356 MPV 7.9 Prelim Diff (Auto) Neut % (Auto) 54.1 Lymph % (Auto) 36.5 [place] % (Auto) 6.9 Eos % (Auto) 2.1 Baso % (Auto) 0.4 Neut # (Auto) 4.0 Lymph # (Auto) 2.7 [place] # (Auto) 0.5 Eos # (Auto) 0.2 Baso # (Auto) 0.0 WBC Differential . Diff Scan Differential Comment Auto diff final Sodium 141 Potassium 3.9 Chloride 106 Carbon Dioxide 26.0 Anion Gap 9 BUN 7 Creatinine 0.81 Estimated GFR Greater than 89 Random Glucose 114 H Calcium 8.9 D Total Bilirubin 0.2 AST 31 ALT 17 Alkaline Phosphatase 74 Total Protein 7.1 Albumin 3.1 L Beta HCG, Quant - Imaging Ankle X-Ray 01/14/18 00:00 CONCLUSION: Anatomic alignment across the ankle mortise. Foot X-Ray 01/14/18 07:30 CONCLUSION: 1. Fractures of the distal tibia and fibula as detailed in the of the report. 2. Small avulsion fracture involving the tip of the fibula. 3. Intact foot. Tibia/Fibula X-Ray 01/14/18 07:30 CONCLUSION: Tibial and fibular fractures as detailed above. Ankle CT 01/14/18 08:37 CONCLUSION: 1. Near-anatomic alignment across the tibiotalar joint. 2. Fragmentation of at least two thirds of the articular surface of the tibial plafond with several small intra-articular fragments. - Procedures Date of procedure: 01/14/18 Procedure: Closed reduction right distal tibia and fibula fractures, external fixation right ankle Anesthesia: GETA Surgeon: Gume Shelton MD Assessment and Plan - Assessment (1) Ankle fracture, right Code(s): S82.891A - Other fracture of right lower leg, initial encounter for closed fracture Status: Acute (2) Tobacco abuse Code(s): Z72.0 - Tobacco use Status: Acute (3) Tobacco abuse counseling Code(s): Z71.6 - Tobacco abuse counseling Status: Acute - Plan 27-year-old female with Right ankle fracture Tibia/Fibula xray with finding of Fractures of the distal tibia and fibula Orthopedic surgery following Patient is s/p closed reduction right distal tibia and fibula fractures, external fixation right ankle January 14, 2018 Plan for ORIF early this week PT to treat and eval Pain management accordingly. Switched [place] to Percocet. Added gabapentin. Constipation Ongoing. - Dulcolax PO. - suppository if needed. Tobacco abuse Tobacco counseling cessation provided Nicotine patch Anemia Hgb has been stable. - monitor CBC as needed. Code Status: FULL CODE Discussed Condition With: RN AND PT AND CM Discharge Planning: PENDING ORTHO CLEARANCE
[2018-01-24] MEDS: Methocarbamol 500 MG Tablet PO SCH (22:31)
[2018-01-25] MEDS: Morphine Inj 4 MG/ML Vial IV.PUSH PRN ×5 (00:27→21:56)
[2018-01-25] MEDS: oxyCODONE/Acetaminophen 10/325 Tablet PO PRN ×3 (03:57→19:59)
[2018-01-25] MEDS: Ibuprofen 400 MG Tablet PO SCH ×2 (06:05→21:55)
[2018-01-25] MEDS: Methocarbamol 500 MG Tablet PO SCH ×4 (06:05→21:55)
--- NOTE | 2018-01-25 12:37 | P.PNIM ---
Subjective Interval history: 01-23 The patient had just ambulated back to her bed from the bathroom. She was having significant pain in that right lower extremity. She did not feel like working with physical therapy. Hoping she could have surgery tomorrow. Discussed with nursing. 01-24 ON CHRONIC PAIN MEDS NEEDS TO BE ON CHRONIC MEDS FOR CONSTIPATION DW RN AND PT AND CM HAVING BM BUT FEELS CONSTIPATION SWITCH OFF FLEXERIL GO TO ROBAXIN 01-25 COMPLAINS OF BUTTOCKS PAIN AND HEMORRHOID PAIN DW RN AND PT CONSULT [employer] FOR [employer] Physical Exam Vital signs: Vital Signs 01/24/18 16:00 01/24/18 20:00 01/24/18 23:00 Temperature 97.7 F 98.5 F Pulse Rate 105 H 102 H Respiratory Rate 20 18 18 Blood Pressure 134/71 135/87 Pulse Oximetry 97 100 01/25/18 00:00 01/25/18 04:00 Temperature 98.1 F 97.8 F Pulse Rate 99 H 86 Respiratory Rate 18 Blood Pressure 145/65 H 109/56 L Pulse Oximetry 97 98 Intake & Output 01/24/18 01/25/18 01/25/18 18:59 06:59 18:59 Intake Total 640 / 640 Balance 640 / 640 Weight 104.5 kg Intake: Oral 640 / 640 Other: # Voids 3 Date of Last Bowel Movement 01/24/18 # Bowel Movements 3 Narrative: GENERAL: NAD SKIN: Warm and dry. HEAD: Normocephalic. EYES: No scleral icterus. No injection or drainage. NECK: Supple, trachea midline. No JVD or lymphadenopathy. CARDIOVASCULAR: Regular rate and rhythm without murmurs, gallops, or rubs. RESPIRATORY: Breath sounds equal bilaterally. No accessory muscle use. GASTROINTESTINAL: Abdomen soft, non-tender, nondistended. MUSCULOSKELETAL: Right ankle repair-external fixator in place, tender to palpation, swollen. BACK: Nontender without obvious deformity. No CVA tenderness. RLE: 2+swelling of right ankle. +exfix. pin sites clean and dry Results - Labs CBC & Chem 7: 01/17/18 07:00 01/15/18 06:20 - Procedures Date of procedure: 01/14/18 Procedure: Closed reduction right distal tibia and fibula fractures, external fixation right ankle Anesthesia: GETA Surgeon: Gume Shelton MD Assessment and Plan - Assessment (1) Ankle fracture, right Code(s): S82.891A - Other fracture of right lower leg, initial encounter for closed fracture Status: Acute (2) Tobacco abuse Code(s): Z72.0 - Tobacco use Status: Acute (3) Tobacco abuse counseling Code(s): Z71.6 - Tobacco abuse counseling Status: Acute - Plan 27-year-old female with Right ankle fracture Tibia/Fibula xray with finding of Fractures of the distal tibia and fibula Orthopedic surgery following Patient is s/p closed reduction right distal tibia and fibula fractures, external fixation right ankle January 14, 2018 Plan for ORIF early this week PT to treat and eval Pain management accordingly. Switched [place] to Percocet. Added gabapentin. Constipation Ongoing. - Dulcolax PO. - suppository if needed. Tobacco abuse Tobacco counseling cessation provided Nicotine patch Anemia Hgb has been stable. - monitor CBC as needed. HEMORRHOIDS NUVIA Code Status: FULL CODE Discussed Condition With: RN AND PT AND CM Discharge Planning: PENDING ORTHO CLEARANCE
[2018-01-25] MEDS ORDERED: Witch Hazel 50%/Glyderin 12.5% 40 Pad Jar RECTAL PRN (12:38)
[2018-01-25] MEDS: Gabapentin 300 MG Capsule PO SCH ×3 (15:12→17:29)
[2018-01-25] MEDS: Senna/Docusate Sodium 8.6/50 MG Tablet PO SCH (19:59)
[2018-01-26] MEDS: Morphine Inj 4 MG/ML Vial IV.PUSH PRN ×4 (04:36→23:03)
[2018-01-26] MEDS: Ibuprofen 400 MG Tablet PO SCH ×4 (06:24→23:07)
[2018-01-26] MEDS: Methocarbamol 500 MG Tablet PO SCH (06:25)
[2018-01-26] MEDS: oxyCODONE/Acetaminophen 10/325 Tablet PO PRN ×3 (06:29→15:46)
[2018-01-26] MEDS: Polyethylene Glycol 3350 17 GM Packet PO SCH (10:59)
[2018-01-26] MEDS: Gabapentin 300 MG Capsule PO SCH ×3 (10:59→19:11)
[2018-01-26] MEDS: Senna/Docusate Sodium 8.6/50 MG Tablet PO SCH ×2 (10:59→23:07)
[2018-01-26] MEDS: Enoxaparin Inj 40 MG/0.4 ML Syringe SQ SCH (10:59)
--- NOTE | 2018-01-26 11:58 | P.PN ---
Subjective Interval history: Follow-up visit right tibia/fibula fracture s/p ORIF with external fixator 01/14 , right foot and ankle edema. Spoke with nurse reports patient with ongoing complaints of right foot pain, plan for external fixator removal tomorrow. Patient seen and examined resting in bed comfortably, appears to be in no acute distress talking on the phone this morning. She denies any fevers, chills, nausea, vomiting, cough or shortness of breath. Does report one episode of diarrhea yesterday, none this morning or overnight. Patient states that right ankle pain is "okay" with the use of pain medication and ice packs. Patient is upset that she did not get to go to surgery today. Physical Exam Vital signs: Vital Signs 01/25/18 12:00 01/25/18 16:00 01/25/18 20:00 Temperature 36.7 C 36.9 C 36.9 C Pulse Rate 108 H 107 H 110 H Respiratory Rate 16 16 18 Blood Pressure 124/73 144/69 H 131/74 Pulse Oximetry 99 96 99 01/26/18 00:00 01/26/18 08:00 Temperature 36.6 C 36.9 C Pulse Rate 99 H 93 H Respiratory Rate 17 Blood Pressure 135/83 133/66 Pulse Oximetry 98 98 Intake & Output 01/25/18 01/26/18 01/26/18 18:59 06:59 18:59 Other: Date of Last Bowel Movement 01/25/18 01/25/18 Narrative: GENERAL: -[place] female resting in bed comfortably in no acute distress. SKIN: Warm and dry. HEAD: Normocephalic. EYES: No scleral icterus. No injection or drainage. NECK: Supple, trachea midline. No JVD or lymphadenopathy. CARDIOVASCULAR: Regular rate and rhythm without murmurs, gallops, or rubs. RESPIRATORY: Breath sounds equal bilaterally. No accessory muscle use. GASTROINTESTINAL: Abdomen soft, non-tender, nondistended. MUSCULOSKELETAL: Right ankle repair-external fixator in place, trace amount of edema noted, pin sites with no visible drainage. Results - Labs CBC & Chem 7: 01/17/18 07:00 01/15/18 06:20 - Procedures Date of procedure: 01/14/18 Procedure: Closed reduction right distal tibia and fibula fractures, external fixation right ankle Anesthesia: GETA Surgeon: Gume Shelton MD Assessment and Plan - Assessment (1) Ankle fracture, right Code(s): S82.891A - Other fracture of right lower leg, initial encounter for closed fracture Status: Acute (2) Tobacco abuse Code(s): Z72.0 - Tobacco use Status: Acute (3) Tobacco abuse counseling Code(s): Z71.6 - Tobacco abuse counseling Status: Acute - Plan 27-year-old female with Right ankle fracture Tibia/Fibula xray with finding of Fractures of the distal tibia and fibula Orthopedic surgery following Patient is s/p closed reduction right distal tibia and fibula fractures, external fixation right ankle January 14, 2018 Right foot edema improved, plan for external fixation removal tomorrow. PT to treat and eval Pain management gabapentin, Percocet No. 10 months and IV morphine for breakthrough pain. Robaxin discontinued (on back order per nurse), start scheduled Flexeril every 8 hours. Constipation Ongoing. - Dulcolax PO. - suppository if needed, one episode of diarrhea yesterday, discussed with patient to report ongoing diarrhea. Tobacco abuse Tobacco counseling cessation provided Nicotine patch Anemia Hgb has been stable. - monitor CBC as needed. Hemorrhoids -Continue pressure relief and Tucks pads. DVT prophylaxis Lovenox (on hold for planned surgery tomorrow) Discussed Condition With: Patient and nurse Discharge Planning: Pending orthopedic clearance.
[2018-01-27] MEDS ORDERED: Metoprolol Tartrate 25 MG Tablet PO SCH (02:45)
[2018-01-27] MEDS ORDERED: Chlorhexidine Gluconate 2% 1 Pack (2 Cloths) TOPICAL SCH (02:45)
[2018-01-27] MEDS ORDERED: Sodium Chlor 0.9% Inj 500 ML IV.SIG SCH (03:00)
[2018-01-27] MEDS: Morphine Inj 4 MG/ML Vial IV.PUSH PRN ×3 (04:28→21:37)
[2018-01-27] MEDS: Senna/Docusate Sodium 8.6/50 MG Tablet PO SCH ×3 (05:15→21:42)
--- NOTE | 2018-01-27 06:50 | P.PNOP ---
Subjective Interval history: s/p exfix right distal tibia fracture Doing well. Pain improved. Physical Exam Vital signs: Vital Signs 01/26/18 08:00 01/26/18 12:00 01/26/18 15:46 Temperature 98.4 F 98.2 F 98.8 F Pulse Rate 93 H 98 H 103 H Respiratory Rate 18 18 Blood Pressure 133/66 122/74 148/69 H Pulse Oximetry 98 97 99 01/26/18 20:00 01/27/18 00:00 01/27/18 04:00 Temperature 98 F 97.8 F 98.4 F Pulse Rate 108 H 108 H 94 H Respiratory Rate 16 16 16 Blood Pressure 116/57 L 144/65 H 135/67 Pulse Oximetry 98 94 L 100 Intake & Output 01/26/18 01/26/18 01/27/18 06:59 18:59 06:59 Intake Total 600 / 600 480 / 480 Balance 600 / 600 480 / 480 Weight 102.7 kg Intake: Oral 480 / 480 Oral Supplement 600 / 600 Other: # Voids 3 2 Date of Last Bowel Movement 01/25/18 01/25/18 01/27/18 # Bowel Movements 1 Narrative: RLE: swelling improved. exfix in place. pin sites clean Results - Labs CBC & Chem 7: 01/17/18 07:00 01/15/18 06:20 - Procedures Date of procedure: 01/14/18 Procedure: Closed reduction right distal tibia and fibula fractures, external fixation right ankle Anesthesia: GETA Surgeon: Gume Shelton MD Assessment and Plan - Assessment and Plan 1) Right comminuted distal tibia fracture status post external fixation Strict nonweightbearing Elevation to decrease swelling Continue with ice surgery today with Dr Shelton
[2018-01-27] MEDS: oxyCODONE/Acetaminophen 10/325 Tablet PO PRN ×2 (08:02→23:38)
--- NOTE | 2018-01-27 08:51 | P.PN ---
Subjective Interval history: Follow-up visit right tibia/fibula fracture s/p ORIF with external fixator 01/14 , right foot and ankle edema. Patient is seen and examined this morning resting in bed in no acute distress. Reports someone was in to see her this morning, plans for external fixator removal today. She denies any fevers, chills, nausea, vomiting or diarrhea. Reports she is ready to get external remover off. Physical Exam Vital signs: Vital Signs 01/26/18 12:00 01/26/18 15:46 01/26/18 20:00 Temperature 36.8 C 37.1 C 36.6 C Pulse Rate 98 H 103 H 108 H Respiratory Rate 18 18 16 Blood Pressure 122/74 148/69 H 116/57 L Pulse Oximetry 97 99 98 01/27/18 00:00 01/27/18 04:00 01/27/18 08:00 Temperature 36.6 C 36.9 C 36.8 C Pulse Rate 108 H 94 H 90 Respiratory Rate 16 16 18 Blood Pressure 144/65 H 135/67 125/69 Pulse Oximetry 94 L 100 98 Intake & Output 01/26/18 01/27/18 01/27/18 18:59 06:59 18:59 Intake Total 600 / 600 480 / 480 Balance 600 / 600 480 / 480 Weight 102.7 kg Intake: Oral 480 / 480 Oral Supplement 600 / 600 Other: # Voids 3 2 Date of Last Bowel Movement 01/25/18 01/27/18 # Bowel Movements 1 Narrative: GENERAL: -[place]ian female resting in bed comfortably in no acute distress. SKIN: Warm and dry. HEAD: Normocephalic. EYES: No scleral icterus. No injection or drainage. NECK: Supple, trachea midline. No JVD or lymphadenopathy. CARDIOVASCULAR: Regular rate and rhythm without murmurs, gallops, or rubs. RESPIRATORY: Breath sounds equal bilaterally. No accessory muscle use. GASTROINTESTINAL: Abdomen soft, non-tender, nondistended. MUSCULOSKELETAL: Right ankle repair-external fixator in place, no edema noted, pin sites with no visible drainage. NEUROLOGICAL: Awake, alert, oriented 3. Results - Labs CBC & Chem 7: 01/17/18 07:00 01/15/18 06:20 - Procedures Date of procedure: 01/14/18 Procedure: Closed reduction right distal tibia and fibula fractures, external fixation right ankle Anesthesia: GETA Surgeon: Gume Shelton MD Assessment and Plan - Assessment (1) Ankle fracture, right Code(s): S82.891A - Other fracture of right lower leg, initial encounter for closed fracture Status: Acute (2) Tobacco abuse Code(s): Z72.0 - Tobacco use Status: Acute (3) Tobacco abuse counseling Code(s): Z71.6 - Tobacco abuse counseling Status: Acute - Plan 27-year-old female with Right ankle fracture Tibia/Fibula xray with finding of Fractures of the distal tibia and fibula Orthopedic surgery following Patient is s/p closed reduction right distal tibia and fibula fractures, external fixation right ankle January 14, 2018 Right foot edema improved, plan for external fixation removal today. PT to treat and eval Pain management gabapentin, Percocet No. 10 months and IV morphine for breakthrough pain. Robaxin discontinued (on back order per nurse), Flexeril every 8 hours. No pain complaints this a.m Constipation Ongoing. - Dulcolax PO. - suppository if needed, no diarrhea. Tobacco abuse Tobacco counseling cessation provided Nicotine patch Anemia Hgb has been stable. - monitor CBC as needed. Hemorrhoids -Continue pressure relief and Tucks pads. DVT prophylaxis Lovenox (on hold for planned surgery) Discussed Condition With: Patient and nurse. Discharge Planning: Pending orthopedic clearance.
[2018-01-27] MEDS: Ibuprofen 400 MG Tablet PO SCH (10:59)
[2018-01-27] MEDS: Polyethylene Glycol 3350 17 GM Packet PO SCH (11:00)
[2018-01-27] MEDS: Gabapentin 300 MG Capsule PO SCH ×3 (11:00→18:47)
[2018-01-27] MEDS ORDERED: Sodium Chlor 0.9% Inj 500 ML IV.SIG ONE (12:00)
[2018-01-27] MEDS ORDERED: Ketorolac Inj 30 MG/ML (IVP) Vial IV.PUSH ONE (12:00)
[2018-01-27] MEDS ORDERED: Esmolol Bolus Inj 100 MG/10 ML Vial IV.PUSH ONE (12:00)
[2018-01-27] MEDS ORDERED: Lidocaine PF 1% Inj 5 ML Syringe INFILTRATN ONE (12:00)
[2018-01-27] MEDS ORDERED: HYDROmorphone PF Inj 2 MG/ML Vial ONE (14:26)
[2018-01-27] MEDS ORDERED: Post-op Orders (for Pharmacy) OTHER STA (16:13)
--- NOTE | 2018-01-27 16:25 | P.OP ---
- Preoperative Diagnosis (1) Closed pilon fracture of right tibia Date of procedure: 01/27/18 Procedure: Open reduction internal fixation right distal tibia fracture, revision of external fixation, application of wound VAC dressing Anesthesia: GETA Surgeon: Gume Shelton MD Legal Support Specialist: Antonio Pinto PA-C The surgical procedure was assisted by my physician market research assistant. My P.A. presence was necessary throughout this case for the manipulation and positioning of the surgical extremity. My P.A. was assisting me throughout the duration of this procedure. The skill set of a physician market research assistant was medically necessary to complete this procedure. During the surgical case the certified surgical first assistant was working at the back table and the physician market research assistant was directly assisting me. Tourniquet time (min): 108 (Minutes) Operation and Findings: Implants used: Synthes Plan of activity: Strict nonweightbearing Details of procedure: Dania was involved in an accident resulting in comminuted right tibia pilon fracture with distal fibula fracture. Informed consent was obtained, and operative site was marked. The patient was seen and evaluated preoperatively. The patient's swelling had significantly improved and soft tissue appeared to be ready for surgery. Patient was brought to the OR and placed on the OR table, and given IV sedation and GETA. IV antibiotics were administered and timeout procedure was performed. The procedure began with removal of a portion of the external fixator. Clamps were loosened. Clamps and bars were now removed. The metatarsal pins were also removed. The calcaneus pin and tibial pins were left in place. The operative leg was now prepped with alcohol followed by Hibiclens and draped in the usual sterile fashion. The procedure began with an 8-inch incision over the anterior aspect of the ankle and distal tibia. Incision was made 1 cm lateral to the tibial crest. Subcutaneous tissue was dissected with Bovie. The anterior tibialis tendon sheath was retracted laterally. A standard anterior approach was utilized. At this point the distal tibia was evaluated. The patient had severely comminuted fracture. The articular surface was in multiple fragments. There were multiple osteochondral defects of the joint. The metaphyseal region was comminuted. The bone fragments were carefully manipulated. At this point temporary external fixator bars were placed on the medial and lateral aspects of the ankle to help hold general stability. At this point attention was turned towards reduction of the articular surface. The articular surface fragments were carefully reduced and K-wires were used to hold provisional fixation. There was depression of the central articular surface. This was elevated with bone tamps. The medial malleolus fragment was also reduced. There was a large posterior fragment which was reduced. A large pointed clamp was used to compress the anterior and posterior fragments. The metaphyseal region was also gently reduced with multiple fragments. Multiplanar fluoroscopy confirmed appropriate alignment of the articular surface. Lag screws were placed to compress fracture fragments. A Synthes distal tibial plate was selected. The plate was provisionally held to bone with K-wires. 3.5 cortical screws were used to compress plate to bone. 2.7 cortical screws were used to compress plate to bone distally. Multiple locking screws were now placed distally. A second 2.7 plate was contoured to fit the medial aspect of distal tibia. The plate was provisionally held to bone with K-wires. 2.7 cortical screws were used to compress plate to bone. Additional locking screws were placed distally. K-wires were removed. Fluoroscopy confirmed the articular surface was relatively well-aligned. Fascia was closed with #1 Vicryl. Subcutaneous tissue was closed with 3-0 Vicryl. Skin was closed with 3 -0 Nylon. An incisional VAC was now placed over the incision and sealed appropriately. Lastly, attention was turned to revision of external fixator. Pins were placed back into the first and fifth metatarsals. Clamps and bars were placed to create an external fixator. The external fixator was tightened to hold the ankle concentrically reduced and avoid displacement of the central articular surface depression. Sterile dressings were applied. Needle and sponge counts were correct. The patient was transferred to recovery in stable condition.
[2018-01-27] MEDS ORDERED: fentaNYL Citrate Inj 100 MCG/2 ML Ampul ONE (17:22)
[2018-01-27] MEDS ORDERED: *morphine SULFATE 10 MG/ML PERIprocedure ONLY ONE (17:22)
--- NOTE | 2018-01-27 20:11 | XR ---
EXAM DATE: 01/27/2018 8:05 PM EDT AGE/SEX: 27 years / Female INDICATIONS: Right ankle open reduction internal fixation. CLINICAL DATA: This is the patient's initial encounter. Patient reports that signs and symptoms have been present for 1 day and indicates a pain score of Nonresponsive. MEDICAL/SURGICAL HISTORY: None. None. COMPARISON: [facility] [place], ANKLE LIMITED RIGHT 2V, 01/14/2018. . FINDINGS: There is a long plate seen along the anterior lateral distal tibia there is a smaller plate seen alex g the distal medial aspect of the tibia. These secured by multiple screws. The successfully reduces a comminuted distal tibial fracture. There is a fracture at the distal fibular shaft. The patient appe ars to be an external fixation device. CONCLUSION: Good placement of surgical hardware as described above. Electronically signed by: Lamberto Chase MD 01/27/2018 8:10 PM EDT
[2018-01-27] MEDS: ceFAZolin Inj 2,000 MG in Sodium Chlor 0.9% Inj 80 ML IV.SIG SCH (22:30)
[2018-01-27] MEDS: Ketorolac Inj 30 MG/ML (IVP) Vial IV.PUSH SCH (23:49)
[2018-01-28] MEDS: Morphine Inj 4 MG/ML Vial IV.PUSH PRN ×6 (01:40→21:14)
[2018-01-28] MEDS: Vancomycin Inj 1,000 MG in Sodium Chlor 0.9% Inj 250 ML IV.SIG SCH ×2 (01:41→14:18)
[2018-01-28] MEDS: ceFAZolin Inj 2,000 MG in Sodium Chlor 0.9% Inj 80 ML IV.SIG SCH ×2 (06:12→13:41)
--- NOTE | 2018-01-28 06:45 | P.PNOP ---
Subjective Interval history: POD 1s/p ORIF right distal tibia with revision exfix and incisional vac application States pain is throbbing. Reports it is increased since yesterday. Physical Exam Vital signs: Vital Signs 01/27/18 08:00 01/27/18 16:00 01/27/18 16:58 Temperature 98.3 F 98.8 F Pulse Rate 90 107 H 127 H Respiratory Rate 18 17 30 H Blood Pressure 125/69 137/83 132/106 H Pulse Oximetry 98 94 L 98 01/27/18 17:00 01/27/18 17:15 01/27/18 17:30 Temperature Pulse Rate 144 H 128 H 117 H Respiratory Rate 30 H 24 20 Blood Pressure 169/90 H 142/74 H 140/78 Pulse Oximetry 98 98 96 01/27/18 17:45 01/27/18 20:00 01/28/18 00:00 Temperature 98.6 F 97.8 F 98 F Pulse Rate 110 H 115 H 117 H Respiratory Rate 16 22 20 Blood Pressure 142/77 H 162/80 H 131/79 Pulse Oximetry 96 98 98 Intake & Output 01/27/18 01/27/18 01/28/18 06:59 18:59 06:59 Intake Total 480 / 480 950 / 950 100 / 100 Output Total 100 / 100 Balance 480 / 480 850 / 850 100 / 100 Weight 102.7 kg Intake: IV 900 / 900 100 / 100 LR 1000 mL Inj 1,000 ML @ 30 900 / 900 mls/hr IV.SIG .Q24H [facility] Rx#: [id number] Ancef Inj 2,000 MG In NS Inj 80 100 / 100 ML @ 200 mls/hr IV.SIG Q8H [facility] Rx#:[id number] Oral 480 / 480 0 / 0 Other 50 / 50 Output: Urine 0 / 0 Estimated Blood Loss 100 / 100 Other: Mode Setting Right Lower Leg Continuous # Voids 2 1 Date of Last Bowel Movement 01/27/18 01/27/18 # Bowel Movements 1 Narrative: RLE: Dressings clean and dry. Intact. External fixator in place with pin sites clean and dry. Incisional VAC in place with good seal. Results - Labs CBC & Chem 7: 01/17/18 07:00 01/15/18 06:20 - Imaging Impressions Ankle X-Ray 01/27/18 00:00 CONCLUSION: Good placement of surgical hardware as described above. - Procedures Date of procedure: 01/14/18 Procedure: Closed reduction right distal tibia and fibula fractures, external fixation right ankle Anesthesia: GETA Surgeon: Gume Shelton MD Assessment and Plan - Assessment and Plan 1) Right comminuted distal tibia fracture status post ORIF with revision exfix and incisional vac application - POD 1 Strict nonweightbearing Elevation to decrease swelling Continue with ice Maintain incisional VAC. We will evaluate pain medications today to make more comfortable. We will plan for removal of incisional VAC on Friday with hopeful discharge home at that time. Follow-up with Dr. Shelton or his PA in 2 weeks [employer] Prescription Drug Monitoring Database has been queried and verified prior to prescribing the controlled substance. Acute pain exception. This patient has normal, predicted, physiological, and time limited response to an adverse mechanical stimulus associated with surgery, trauma, or acute illness as described in my notes. There is a lack of alternative treatment options other than to include the prescribed narcotic treatment for this condition.
[2018-01-28] MEDS: Ketorolac Inj 30 MG/ML (IVP) Vial IV.PUSH SCH ×3 (07:51→23:16)
[2018-01-28] MEDS: Gabapentin 300 MG Capsule PO SCH ×3 (08:08→17:27)
[2018-01-28] MEDS: Polyethylene Glycol 3350 17 GM Packet PO SCH (08:08)
[2018-01-28] MEDS: Senna/Docusate Sodium 8.6/50 MG Tablet PO SCH ×2 (08:09→21:13)
--- NOTE | 2018-01-28 08:22 | P.PN ---
Subjective Interval history: Follow-up visit right tibia/fibula fracture s/p ORIF with external fixator 01/14 , back to the OR 01/27 for revision of external fixation and application of wound VAC. Patient is seen and examined this morning resting in bed and receiving IV pain medication. Patient reports that what she is getting for pain is "not strong enough" she voices that she knows there is something stronger for pain. She complains of right foot muscle spasms. She is requesting to go home tomorrow. Denies any fevers, chills, nausea, vomiting or diarrhea. Physical Exam Vital signs: Vital Signs 01/27/18 16:00 01/27/18 16:58 01/27/18 17:00 Temperature 37.1 C Pulse Rate 107 H 127 H 144 H Respiratory Rate 17 30 H 30 H Blood Pressure 137/83 132/106 H 169/90 H Pulse Oximetry 94 L 98 98 01/27/18 17:15 01/27/18 17:30 01/27/18 17:45 Temperature 37.0 C Pulse Rate 128 H 117 H 110 H Respiratory Rate 24 20 16 Blood Pressure 142/74 H 140/78 142/77 H Pulse Oximetry 98 96 96 01/27/18 20:00 01/28/18 00:00 01/28/18 04:00 Temperature 36.6 C 36.6 C 37.1 C Pulse Rate 115 H 117 H 60 Respiratory Rate 22 20 20 Blood Pressure 162/80 H 131/79 134/74 Pulse Oximetry 98 98 98 Intake & Output 01/27/18 01/28/18 01/28/18 18:59 06:59 18:59 Intake Total 950 / 950 100 / 100 Output Total 100 / 100 Balance 850 / 850 100 / 100 Weight 102 kg Intake: IV 900 / 900 100 / 100 LR 1000 mL Inj 1,000 ML @ 30 900 / 900 mls/hr IV.SIG .Q24H [facility] Rx#: [id number] Ancef Inj 2,000 MG In NS Inj 80 100 / 100 ML @ 200 mls/hr IV.SIG Q8H [facility] Rx#:[id number] Oral 0 / 0 Other 50 / 50 Output: Urine 0 / 0 Estimated Blood Loss 100 / 100 Other: Mode Setting Right Lower Leg Continuous # Voids 1 3 Date of Last Bowel Movement 01/27/18 # Bowel Movements 0 Narrative: GENERAL: -[place] female resting in bed comfortably in no acute distress. SKIN: Warm and dry. HEAD: Normocephalic. EYES: No scleral icterus. No injection or drainage. NECK: Supple, trachea midline. CARDIOVASCULAR: Regular rate and rhythm without murmurs, gallops, or rubs. RESPIRATORY: Breath sounds equal bilaterally. No accessory muscle use. GASTROINTESTINAL: Abdomen soft, non-tender, nondistended. MUSCULOSKELETAL: Right ankle repair-external fixator in place, with wound Vac in place, trace edema to lower leg. Capillary refill <3 seconds, toes warm with normal sensation. NEUROLOGICAL: Awake, alert, oriented 3. Results - Labs CBC & Chem 7: 01/17/18 07:00 01/15/18 06:20 - Imaging Impressions Ankle X-Ray 01/27/18 00:00 CONCLUSION: Good placement of surgical hardware as described above. - Procedures Date of procedure: 01/14/18 Procedure: Closed reduction right distal tibia and fibula fractures, external fixation right ankle Anesthesia: GETA Surgeon: Gume Shelton MD Assessment and Plan - Assessment (1) Ankle fracture, right Code(s): S82.891A - Other fracture of right lower leg, initial encounter for closed fracture Status: Acute (2) Tobacco abuse Code(s): Z72.0 - Tobacco use Status: Acute (3) Tobacco abuse counseling Code(s): Z71.6 - Tobacco abuse counseling Status: Acute - Plan 27-year-old female with Right ankle fracture Tibia/Fibula xray with finding of Fractures of the distal tibia and fibula Orthopedic surgery following Patient is s/p closed reduction right distal tibia and fibula fractures, external fixation right ankle January 14, 2018 Right foot edema improved, s/p revision exfix and and incisional wound vac placement. PT to treat and eval, encourage patient to participate in PT Pain management gabapentin, Percocet# 10 and IV morphine for breakthrough pain. Robaxin discontinued (on back order per nurse), will increase Flexeril dose to 15mg Q8hrs Wound vac in place discussed with patient the importance of following Ortho recommendations. She was also advised that at home her pain control would also be challenging if she left early. Constipation Ongoing. - Dulcolax PO. - suppository if needed, no diarrhea. Tobacco abuse Tobacco counseling cessation provided Nicotine patch Anemia Hgb has been stable. - monitor CBC as needed. Hemorrhoids -Continue pressure relief and Tucks pads. DVT prophylaxis Lovenox Discussed Condition With: Discussed with patient and nurse. Discharge Planning: Pending orthopedic clearance, wound vac to be D/C Friday.
[2018-01-28] MEDS: Enoxaparin Inj 40 MG/0.4 ML Syringe SQ SCH (15:47)
[2018-01-28] MEDS: ceFAZolin 2 GM Premix Inj 2 GM/50 ML PIGGYBACK IV.SIG SCH (21:13)
[2018-01-28] MEDS: Temazepam 15 MG Capsule PO PRN (21:22)
[2018-01-29] MEDS: Morphine Inj 4 MG/ML Vial IV.PUSH PRN ×4 (02:09→22:42)
[2018-01-29] MEDS: ceFAZolin 2 GM Premix Inj 2 GM/50 ML PIGGYBACK IV.SIG SCH ×2 (05:24→13:13)
--- NOTE | 2018-01-29 06:35 | P.PNOP ---
Subjective Interval history: Continuing to improve. Physical Exam Vital signs: Vital Signs 01/28/18 08:00 01/28/18 12:00 01/28/18 16:00 Temperature 98.9 F 98.1 F 98.7 F Pulse Rate 113 H 50 L 106 H Respiratory Rate 19 17 18 Blood Pressure 146/70 H 105/53 L 133/75 Pulse Oximetry 96 95 98 01/28/18 20:00 01/28/18 23:15 01/29/18 00:00 Temperature 98.0 F 98.2 F Pulse Rate 92 H 94 H Respiratory Rate 15 18 16 Blood Pressure 131/86 136/78 Pulse Oximetry 98 96 01/29/18 04:00 Temperature 98.2 F Pulse Rate 97 H Respiratory Rate 16 Blood Pressure 139/70 Pulse Oximetry 98 Intake & Output 01/28/18 01/28/18 01/29/18 06:59 18:59 06:59 Intake Total 450 / 450 480 / 480 1800 / 1800 Balance 450 / 450 480 / 480 1800 / 1800 Weight 102 kg 102.3 kg Intake: IV 450 / 450 1050 / 1050 LR 1000 mL Inj 1,000 ML @ 30 1000 / 1000 mls/hr IV.SIG .Q24H [facility] Rx#: [id number] Vancomycin Inj 1,000 MG In NS 250 / 250 Inj 250 ML @ 125 mls/hr IV.SIG Q12H [facility] Rx#:[id number] Ancef 2 GM Premix Inj 2 gm In 50 / 50 50 ml @ 200 mls/hr IV.SIG Q8H [facility] Rx#:[id number] Ancef Inj 2,000 MG In NS Inj 80 200 / 200 ML @ 200 mls/hr IV.SIG Q8H [facility] Rx#:[id number] Oral 480 / 480 750 / 750 Other: # Voids 3 3 6 Date of Last Bowel Movement 01/27/18 01/27/18 01/27/18 # Bowel Movements 0 Narrative: Right lower extremity: Clean dry dressings intact. External fixator in place. Wound VAC with appropriate seal. Intact sensation all toes with good capillary refills Results - Labs CBC & Chem 7: 01/17/18 07:00 01/15/18 06:20 - Procedures Date of procedure: 01/14/18 Procedure: Closed reduction right distal tibia and fibula fractures, external fixation right ankle Anesthesia: GETA Surgeon: Gume Shelton MD Assessment and Plan - Assessment and Plan 1) Right comminuted distal tibia fracture status post ORIF with revision exfix and incisional vac application - POD 2 Strict nonweightbearing Elevation to decrease swelling Continue with ice Maintain incisional VAC. Pin care twice daily We will evaluate pain medications today to make more comfortable. We will plan for removal of incisional VAC on Friday with hopeful discharge home at that time. Follow-up with Dr. Shelton or his PA in 2 weeks [facility] Prescription Drug Monitoring Database has been queried and verified prior to prescribing the controlled substance. Acute pain exception. This patient has normal, predicted, physiological, and time limited response to an adverse mechanical stimulus associated with surgery, trauma, or acute illness as described in my notes. There is a lack of alternative treatment options other than to include the prescribed narcotic treatment for this condition.
[2018-01-29] MEDS: Ketorolac Inj 30 MG/ML (IVP) Vial IV.PUSH SCH ×2 (09:24→16:36)
[2018-01-29] MEDS: Senna/Docusate Sodium 8.6/50 MG Tablet PO SCH ×2 (09:55→20:23)
[2018-01-29] MEDS: Gabapentin 300 MG Capsule PO SCH ×3 (09:55→18:17)
[2018-01-29] MEDS: Polyethylene Glycol 3350 17 GM Packet PO SCH (09:56)
--- NOTE | 2018-01-29 11:39 | P.PN ---
Subjective Interval history: Follow-up visit right tibia/fibula fracture s/p ORIF with external fixator 01/14 , back to the OR 01/27 for revision of external fixation and application of wound VAC. Patient is seen and examined resting in bed comfortably and in no acute distress. She reports that she will have a wound VAC taken off tomorrow and will be discharged home. She is asking who well be refilling her prescription medications after she leaves. Discussed follow-up with primary as well as Ortho. Denies any fevers, chills, nausea, vomiting, diarrhea, cough or shortness of breath. Did manage to have a bowel movement yesterday, does not report any pain at the moment. Physical Exam Vital signs: Vital Signs 01/28/18 12:00 01/28/18 16:00 01/28/18 20:00 Temperature 36.7 C 37.1 C 36.7 C Pulse Rate 50 L 106 H 92 H Respiratory Rate 17 18 15 Blood Pressure 105/53 L 133/75 131/86 Pulse Oximetry 95 98 98 01/28/18 23:15 01/29/18 00:00 01/29/18 04:00 Temperature 36.8 C 36.8 C Pulse Rate 94 H 97 H Respiratory Rate 18 16 16 Blood Pressure 136/78 139/70 Pulse Oximetry 96 98 01/29/18 05:27 01/29/18 06:40 01/29/18 08:00 Temperature 36.6 C Pulse Rate 106 H Respiratory Rate 18 18 19 Blood Pressure 133/74 Pulse Oximetry 95 01/29/18 09:53 Temperature Pulse Rate Respiratory Rate 20 Blood Pressure Pulse Oximetry Intake & Output 01/28/18 01/29/18 01/29/18 18:59 06:59 18:59 Intake Total 480 / 480 1800 / 1800 50 / 50 Output Total 0 / 0 Balance 480 / 480 1800 / 1800 50 / 50 Weight 102.3 kg Intake: IV 1050 / 1050 50 / 50 LR 1000 mL Inj 1,000 ML @ 30 1000 / 1000 mls/hr IV.SIG .Q24H [facility] Rx#: [id number] Ancef 2 GM Premix Inj 2 gm In 50 / 50 50 / 50 50 ml @ 200 mls/hr IV.SIG Q8H [facility] Rx#:[id number] Oral 480 / 480 750 / 750 Output: Wound Vac Amount 0 / 0 Right Lower Leg 0 / 0 Other: Mode Setting Right Lower Leg Continuous # Voids 3 6 Date of Last Bowel Movement 01/27/18 01/27/18 Narrative: GENERAL: -[place] female resting in bed comfortably in no acute distress. SKIN: Warm and dry. HEAD: Normocephalic. EYES: No scleral icterus. No injection or drainage. NECK: Supple, trachea midline. CARDIOVASCULAR: Regular rate and rhythm without murmurs, gallops, or rubs. RESPIRATORY: Breath sounds equal bilaterally. No accessory muscle use. GASTROINTESTINAL: Abdomen soft, non-tender, nondistended. MUSCULOSKELETAL: Right ankle repair-external fixator in place, with wound Vac in place, trace edema to the dorsal aspect of foot. Capillary refill <3 seconds , toes warm with normal sensation. NEUROLOGICAL: Awake, alert, oriented 3. Results - Labs CBC & Chem 7: 01/17/18 07:00 01/15/18 06:20 - Procedures Date of procedure: 01/14/18 Procedure: Closed reduction right distal tibia and fibula fractures, external fixation right ankle Anesthesia: GETA Surgeon: Gume Shelton MD Assessment and Plan - Assessment (1) Ankle fracture, right Code(s): S82.891A - Other fracture of right lower leg, initial encounter for closed fracture Status: Acute (2) Tobacco abuse Code(s): Z72.0 - Tobacco use Status: Acute (3) Tobacco abuse counseling Code(s): Z71.6 - Tobacco abuse counseling Status: Acute - Plan 27-year-old female with Right ankle fracture Tibia/Fibula xray with finding of Fractures of the distal tibia and fibula Orthopedic surgery following Patient is s/p closed reduction right distal tibia and fibula fractures, external fixation right ankle January 14, 2018 Right foot edema improved, s/p revision exfix and and incisional wound vac placement 01/28. PT to treat and eval, encourage patient to participate in PT Pain management gabapentin, Percocet# 10 and IV morphine for breakthrough pain. Robaxin discontinued (on back order per nurse) Flexeril dose to 15mg Q8hrs. Plans for wound VAC removal tomorrow. Constipation Ongoing. - Dulcolax PO. - + BM Tobacco abuse Tobacco counseling cessation provided Nicotine patch Anemia Hgb has been stable. - monitor CBC as needed. Hemorrhoids -Continue pressure relief and Tucks pads. DVT prophylaxis Lovenox Discussed Condition With: Patient Discharge Planning: Pending orthopedic clearance, wound vac to be D/C Friday.
[2018-01-29] MEDS: Enoxaparin Inj 40 MG/0.4 ML Syringe SQ SCH (16:37)
[2018-01-29] MEDS: Temazepam 15 MG Capsule PO PRN (20:23)
[2018-01-30] MEDS: Morphine Inj 4 MG/ML Vial IV.PUSH PRN ×2 (03:31→08:32)
--- NOTE | 2018-01-30 07:06 | P.PNOP ---
Subjective Interval history: Pain is controlled and is improving with physical therapy Physical Exam Vital signs: Vital Signs 01/29/18 08:00 01/29/18 09:53 01/29/18 12:00 Temperature 98 F 97.7 F Pulse Rate 106 H 93 H Respiratory Rate 19 20 16 Blood Pressure 133/74 139/74 Pulse Oximetry 95 98 01/29/18 12:24 01/29/18 13:45 01/29/18 16:00 Temperature 98.4 F Pulse Rate 16 L Respiratory Rate 20 20 17 Blood Pressure 126/70 Pulse Oximetry 97 01/29/18 20:00 01/30/18 00:00 01/30/18 01:18 Temperature 98.2 F 98.9 F Pulse Rate 102 H 94 H Respiratory Rate 18 18 15 Blood Pressure 135/80 137/89 Pulse Oximetry 98 96 Intake & Output 01/29/18 01/30/18 01/30/18 18:59 06:59 18:59 Intake Total 1540 / 1540 Balance 1540 / 1540 Intake: IV 100 / 100 Ancef 2 GM Premix Inj 2 gm In 100 / 100 50 ml @ 200 mls/hr IV.SIG Q8H [facility] Rx#:[id number] Oral 1440 / 1440 Other: # Voids 4 1 Date of Last Bowel Movement 01/29/18 # Bowel Movements 1 Narrative: Right lower extremity: No pain with hip or knee range of motion. External fixation is in place. Wound VAC removed showing surgical incisions well approximated and healing well. She has intact distal pulses and sensation. She is able to move her toes approximately Results - Labs CBC & Chem 7: 01/17/18 07:00 01/15/18 06:20 - Procedures Date of procedure: 01/14/18 Procedure: Closed reduction right distal tibia and fibula fractures, external fixation right ankle Anesthesia: GETA Surgeon: Gume Shelton MD Assessment and Plan - Assessment and Plan 1) Right comminuted distal tibia fracture status post ORIF with revision exfix and incisional vac application - POD 3 Strict nonweightbearing Elevation to decrease swelling Continue with ice Discontinue incisional VAC. Pin care twice daily. Begin daily dressing changes with Xeroform over incisions Discharged home today Follow-up with Dr. Shelton or his PA in 2 weeks [facility] Prescription Drug Monitoring Database has been queried and verified prior to prescribing the controlled substance. Acute pain exception. This patient has normal, predicted, physiological, and time limited response to an adverse mechanical stimulus associated with surgery, trauma, or acute illness as described in my notes. There is a lack of alternative treatment options other than to include the prescribed narcotic treatment for this condition.
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
[2018-01-30] MEDS: Gabapentin 300 MG Capsule PO SCH (08:32)
[2018-01-30] MEDS: Senna/Docusate Sodium 8.6/50 MG Tablet PO SCH (08:33)
[2018-01-30] MEDS: Polyethylene Glycol 3350 17 GM Packet PO SCH (08:35)
== END 2018-01-30 15:02 | disposition home or self-care (01) ==
LOC: NEPC 07:13 → NEDA 09:15 → N06 13:49
PROVIDERS: ADMIT Internal Medicine; ATTEND Internal Medicine
PROC: ORIFANK (2018-01-14 10:20)
PROC: ORIFTIB (2018-01-27 13:24)

== ENCOUNTER 2018-03-05 09:18 | Inpatient (IN) ==
[2018-03-05] MEDS ORDERED: Morphine Inj 4 MG/ML Vial IV.PUSH ONE (11:16)
[2018-03-05 11:44] LABS: Baso % (Auto) 0.4 % (0.0-2.0); Eos # (Auto) 0.2 th/mm3 (0.0-0.4); Eos % (Auto) 2.5 % (0.0-4.0); Hematocrit 33.4 % (35.0-46.0); Hemoglobin 10.9 gm/dL (11.6-15.3); Lymph % (Auto) 20.2 % (9.0-44.0); Mean Corpuscular HGB Conc 32.6 % (32.0-36.0); Mean Corpuscular Hemoglobin 28.2 pg (27.0-34.0); Mean Corpuscular Volume 86.4 fL (80.0-100.0); Mean Platelet Volume 7.9 fL (7.0-11.0); Mono # (Auto) 0.5 th/mm3 (0.0-0.9); Mono % (Auto) 5.4 % (0.0-8.0); Neut # (Auto) 7.1 th/mm3 (1.8-7.7); Neut % (Auto) 71.5 % (16.0-70.0); Platelet Count 389 th/mm3 (150-450); Red Blood Count 3.86 mil/mm3 (4.00-5.30); Red Cell Distribution Width 14.6 % (11.6-17.2)
[2018-03-05 12:05] LABS: Anion Gap 8 meq/L (5-15); Blood Urea Nitrogen 16 mg/dL (7-18); C-Reactive Protein 5.11 mg/dL (0.00-0.30); Calcium 8.8 mg/dL (8.5-10.1); Carbon Dioxide 28.9 meq/L (21.0-32.0); Chloride 106 meq/L (98-107); Glomerular Filtration Rate Greater Than 89 mL/min (>89); Glucose,Random 87 mg/dL (74-106); Potassium 3.2 meq/L (3.5-5.1); Sodium 143 meq/L (136-145)
--- NOTE | 2018-03-05 12:16 | ED ---
HPI General Chief Complaint: Extremity Injury, Lower Stated Complaint: Leg pain Time Seen by Provider: 03/05/18 09:46 Source: patient Mode of arrival: ambulatory Limitations: no limitations History of Present Illness HPI Narrative: 28 yo female here for evaluation of multiple falls. Patient was recently evaluated here for evaluation of significant fracture to her right ankle. Patient had surgery for it as well as she is currently in a fixator. Per patient she is had 3 falls today and landed on her knees and she has been having pain ever since. She also has pain in her foot and ankle and she believes that 1 of the screws appears to be falling off especially the one on the lateral front aspect. Patient does complain that she has some drainage from the fluid that appears to be yellow. She does complain of some swelling to the area. She is concerned because she is following apparently per patient 12 times in the past couple of days. She does use a walker to get about. She denies any chest pain or shortness of breath. No head injury or loss of consciousness. Takes no blood thinners. Per patient she went to see her surgeon earlier this week and per patient they are expecting to take out the fixator sometime in March. She states that currently her pain is 8 out of 10. She denies any urinary or bowel movement issues. No other medical issues at this time. Related Data Home Medications Medication Instructions Recorded Confirmed cyclobenzaprine mg PO TID 03/05/18 hydrocodone-acetaminophen 1 tab PO Q4-6H PRN 03/05/18 03/05/18 Allergies Allergy/AdvReac Type Severity Reaction Status Date / Time No Known Allergies Allergy Verified 03/05/18 09:36 Review of Systems ROS: all other systems reviewed are negative [facility] Medical History Medical History Fixation hardware in lower extremity (Acute) delivery delivered (Acute) Patient denies medical problems (Acute) Family History Family History Other Family history of acute myocardial infarction Family history of hypertension Social History Social History Substance History: No History of Abuse Second Hand Smoke Exposure: No Smoking Status: Current every day smoker Tobacco Type: Cigarettes How Often Do You Have a Drink Containing Alcohol: Monthly or less Recent Travel in [facility] within the Last 8 Weeks: No Recent Out of Country Travel within the Last 8 Weeks: No Substance Abuse Detail Marijuana: Substance Use Status: Active Route Used Substance Abuse: Inhalation Immunization History Tetanus Immunization: Unsure Hx Influenza Vaccine This Season: No Exam Narrative Exam Narrative: GENERAL: Well appearing but overweight SKIN: Focused skin assessment warm/dry. HEAD: Atraumatic. Normocephalic. EYES: Pupils equal and round. No scleral icterus. No injection or drainage. ENT: No nasal bleeding or discharge. Mucous membranes pink and moist. Tongue is midline. No uvula deviation. NECK: Trachea midline. No JVD. CARDIOVASCULAR: Regular rate and rhythm. No murmur appreciated. RESPIRATORY: No accessory muscle use. Clear to auscultation. Breath sounds equal bilaterally. GASTROINTESTINAL: Abdomen soft, non-tender, nondistended. Hepatic and splenic margins not palpable. MUSCULOSKELETAL: No obvious deformities. No clubbing. No cyanosis. No edema. Full range of motion of the upper and lower extremities bilaterally. 2+ pulses bilaterally. Patient does have a ex-fixator on the right ankle and foot. Patient does have erythema and some swelling noted on the dorsal aspect of the foot. Some drainage noted from some of the fixator suspicion of the lateral aspect but appears to be serosanguineous and no drainage. Slightly warm to touch. Good capillary refill. Her to assess if the fixators are off or not. Patient does have bruises to both kneecaps with abrasions. Per patient and her painful with range of motion. NEUROLOGICAL: Awake and alert. No obvious cranial nerve deficits. Motor grossly within normal limits. Normal speech. PSYCHIATRIC: Appropriate mood and affect; insight and judgment normal. Course Initial Documented Vital Signs Temperature 99.4 F 03/05/18 09:22 Pulse Rate 128 H 03/05/18 09:22 Respiratory Rate 18 03/05/18 09:22 Blood Pressure 96/58 L 03/05/18 09:22 Pulse Oximetry 100 03/05/18 09:22 Last Documented Vital Signs Temperature 98.4 F 03/05/18 16:00 Pulse Rate 100 H 03/05/18 16:00 Respiratory Rate 16 03/05/18 16:48 Blood Pressure 123/61 03/05/18 16:00 Pulse Oximetry 100 03/05/18 16:00 Medical Decision Making [facility] Narrative Medical decision making narrative: 28-year-old female that presents to the ED for evaluation of multiple falls and swelling on the right foot. Patient was properly examined and was found to have signs and symptoms consistent with multiple falls. Patient keeps having issues ambulating secondary to the injury she sustained to her right foot. Right foot does appear to be slightly swollen and slightly erythematous but I suspect that this might be more chronic than new. Patient does have some serosanguineous fluid coming from 1 of the fixator is in the lateral aspect. Patient was actually seen for something similar less than a week ago and given Keflex and told to follow-up with her surgeon. Unclear as to what the surgeon recommended at the time. At this time labs and imaging will be ordered. Patient was given IV pain medication. Labs and imaging showed elevated CRP and slightly elevated white blood cell count. X- rays were read as negative. Case was discussed with Dr. Stewart's PA Antonio Carl who actually evaluated the patient this week. PA did reviewed the x- rays and did noted that the from lateral pain appears to have moved and likely is dislodged and might need to be taken out. Because of the swelling and the concern for possible infection in the multiple falls and questionable compliance of the patient he recommends admission to medicine for removal of the pain and possible antibiotics as needed. This was discussed with my attending Dr. Dumont as well as with the patient and they both agree with plan. Case discussed with Dr Duron who agreed with admission. Medical Screen Exam Complete: Yes Emergency Medical Condition: Yes Differential Diagnosis Differential Diagnosis: Fracture versus sprain versus strain versus bruise versus contusion versus multiple falls versus inability to ambulate versus infected site Medical Records Medical records reviewed: Yes I reviewed the patient's medical records. Lab Data Lab results reviewed: Yes I reviewed the patient's lab results. Lab results narrative: CRP elevated Result diagrams: 03/05/18 11:20 03/05/18 11:20 Lab Results 03/05/18 03/05/18 Range/Units 11:20 11:20 WBC 10.0 (4.0-11.0) th/mm3 RBC 3.86 L (4.00-5.30) mil/mm3 Hgb 10.9 L (11.6-15.3) gm/dL Hct 33.4 L (35.0-46.0) % MCV 86.4 (80.0-100.0) fL MCH 28.2 (27.0-34.0) pg MCHC 32.6 (32.0-36.0) % RDW 14.6 (11.6-17.2) % Plt Count 389 (150-450) th/mm3 MPV 7.9 (7.0-11.0) fL Neut % (Auto) 71.5 H (16.0-70.0) % Lymph % (Auto) 20.2 (9.0-44.0) % Jerome % (Auto) 5.4 (0.0-8.0) % Eos % (Auto) 2.5 (0.0-4.0) % Baso % (Auto) 0.4 (0.0-2.0) % Neut # (Auto) 7.1 (1.8-7.7) th/mm3 Lymph # (Auto) 2.0 (1.0-4.8) th/mm3 Jerome # (Auto) 0.5 (0.0-0.9) th/mm3 Eos # (Auto) 0.2 (0.0-0.4) th/mm3 Baso # (Auto) 0.0 (0.0-0.2) th/mm3 WBC Differential . Differential Comment Auto diff final Sodium 143 (136-145) meq/L Potassium 3.2 L (3.5-5.1) meq/L Chloride 106 (98-107) meq/L Carbon Dioxide 28.9 (21.0-32.0) meq/L Anion Gap 8 (5-15) meq/L BUN 16 (7-18) mg/dL Creatinine 0.88 (0.50-1.00) mg/dL Estimated GFR Greater than 89 (>89) mL/min Random Glucose 87 (74-106) mg/dL Calcium 8.8 (8.5-10.1) mg/dL C-Reactive Protein 5.11 H (0.00-0.30) mg/dL Imaging Data Attestation: I personally reviewed and interpreted this imaging study as follows : Radiologist's impression: Ankle X-Ray 03/05/18 11:16 CONCLUSION: Good position and alignment on this postoperative study. Foot X-Ray 03/05/18 11:16 CONCLUSION: 1. Stable fixation without acute bony fracture, as above. Knee X-Ray 03/05/18 11:16 CONCLUSION: Unremarkable exam. Knee X-Ray 03/05/18 11:16 CONCLUSION: No acute fracture or joint dislocation at the knee. Discharge Plan Discharge Disposition Patient Disposition: 28 Still Patient Discharge Details Diagnosis: Wound infection, Loosening of orthopedic screw Physicians Team ED Provider: Mohsen Dumont ED Midlevel Provider: Michael Conway Primary Care Provider: Primary Care Delmy Grady Attending Provider: Floyd Duron Discharge Interventions Interventions: ED Discharge Assessment Last Done: 03/05/18 16:17 Vital Signs Last Done: 03/05/18 10:28 Status ED Status: Left Department Discharge Information Discharge Date/Time: 03/05/18 16:18
--- NOTE | 2018-03-05 12:40 | XR ---
EXAM DATE: 03/05/2018 12:21 PM EDT AGE/SEX: 28 years / Female INDICATIONS: Right foot pain; fall today. CLINICAL DATA: This is the patient's initial encounter. Patient reports that signs and symptoms have been present for 1 day and indicates a pain score of 10/10. MEDICAL/SURGICAL HISTORY: None. . ORIF right ankle. COMPARISON: [facility] [place], FOOT COMPLETE RIGHT 3V, 02/20/2018. . FINDINGS: Redemonstration of patent screw fixation in the distal tibia with external fixators and screws kel sing the proximal fifth and fourth metatarsals as well as the mid first metatarsal. Alignment appears stable. There is no evidence for acute bony fracture. Hardware appears intact. CONCLUSION: 1. Stable fixation without acute bony fracture, as above. Electronically signed by: Amilcar Velasquez MD 03/05/2018 12:39 PM EDT
--- NOTE | 2018-03-05 13:16 | XR ---
EXAM DATE: 03/05/2018 12:22 PM EDT AGE/SEX: 28 years / Female INDICATIONS: Left knee pain; fall today. CLINICAL DATA: This is the patient's initial encounter. Patient reports that signs and symptoms have been present for 1 day and indicates a pain score of 10/10. MEDICAL/SURGICAL HISTORY: None. None. COMPARISON: No prior exams available for comparison. FINDINGS: Bony structures are intact and in normal alignment. Joints are intact without dislocation or signifi cant arthropathy. Osseous density is normal. Soft tissues are unremarkable. No radiopaque foreign bodies seen. There is no evidence of a joint effusion. CONCLUSION: Unremarkable exam. Electronically signed by: Abhinav Egan MD 03/05/2018 1:15 PM EDT
--- NOTE | 2018-03-05 13:16 | XR ---
EXAM DATE: 03/05/2018 12:20 PM EDT AGE/SEX: 28 years / Female INDICATIONS: Right ankle pain; fall today. CLINICAL DATA: This is the patient's initial encounter. Patient reports that signs and symptoms have been present for 1 day and indicates a pain score of 10/10. MEDICAL/SURGICAL HISTORY: None. . ORIF right ankle. COMPARISON: [facility] [place], FOOT COMPLETE RIGHT 3V, 02/20/2018. . FINDINGS: Patient is status post internal fixation for fractures of the distal tibia. There appears to be good alignment and position of the fracture fragments. The hardware is grossly intact. There is good align ment the mortise joint. There is a nondisplaced fracture involving the mid to distal shaft of the fib krunal. External fixation devices are in place. CONCLUSION: Good position and alignment on this postoperative study. Electronically signed by: Abhinav Egan MD 03/05/2018 1:14 PM EDT
--- NOTE | 2018-03-05 13:17 | XR ---
EXAM DATE: 03/05/2018 12:19 PM EDT AGE/SEX: 28 years / Female INDICATIONS: Right knee pain; fall today. CLINICAL DATA: This is the patient's initial encounter. Patient reports that signs and symptoms have been present for 1 day and indicates a pain score of 10/10. MEDICAL/SURGICAL HISTORY: None. None. COMPARISON: [facility], TIBIA FIBULA RIGHT 2V, 02/13/2018. . FINDINGS: Bony structures are intact and in normal alignment. Joints are intact without dislocation or signifi cant arthropathy. Osseous density is normal. Soft tissues are unremarkable. No radiopaque foreign bodies seen. No evidence of a joint effusion. There is external fixation devices in the tibia. CONCLUSION: No acute fracture or joint dislocation at the knee. Electronically signed by: Abhinav Egan MD 03/05/2018 1:16 PM EDT
[2018-03-05] MEDS ORDERED: Piperacil/Tazo 3.375 GM Premix 50 ML IV.SIG ONE (13:25)
[2018-03-05] MEDS ORDERED: Vancomycin Inj 1 GM/200 ML PIGGYBACK IV.SIG ONE (13:25)
[2018-03-05] MEDS ORDERED: Vancomycin Inj 1,000 MG in Sodium Chlor 0.9% Inj 250 ML IV.SIG ONE (13:45)
[2018-03-05] MEDS ORDERED: Acetaminophen 325 MG Tablet PO PRN (14:04)
[2018-03-05] MEDS ORDERED: Bisacodyl 10 MG Supp RECTAL PRN (14:04)
--- NOTE | 2018-03-05 14:13 | P.HP ---
History of Present Illness Primary Care Physician: No Primary Care Physician Chief Complaint: Right leg injury History of Present Illness: This is a pleasant 28 y/o female with status post Multiple falls, Patient was recently evaluated here for evaluation of significant fracture to her right ankle. Patient had surgery for it as well as she is currently in a fixator. Per patient she is had 3 falls today and landed on her knees and she has been having pain ever since. She also has pain in her foot and ankle and she believes that 1 of the screws appears to be falling off especially the one on the lateral front aspect. Patient does complain that she has some drainage from the fluid that appears to be yellow. She does complain of some swelling to the area. She is concerned because she is following apparently per patient 12 times in the past couple of days. She does use a walker to get about. She denies any chest pain or shortness of breath. No head injury or loss of consciousness. Takes no blood thinners. Per patient she went to see her surgeon earlier this week and per patient they are expecting to take out the fixator sometime in March. She states that currently her pain is 8 out of 10. She denies any urinary or bowel movement issues. Sustained injury to her right foot, slightly swollen and slightly erythematous, CRP slightly elevated, X rays negative Case was discussed with Dr. Stewart's PA Antonio Carl who actually evaluated the patient this week. May need to review the Fixator and screws under anesthesia, asked to be admitted and start antibiotics. Initial admission asked for Observation. Review of Systems All other systems reviewed negative except as stated in HPI PMFSH - History History Provided By: Patient - Medical History Medical History: Medical History (Last Reviewed 03/05/18 @ 12:12 by KEVIN Leslie) Fixation hardware in lower extremity (Acute) delivery delivered (Acute) Patient denies medical problems (Acute) - Family History Family History: Family History (Last Updated 03/05/18 @ 14:34 by Floyd Duron MD) Other Family history of acute myocardial infarction Family history of hypertension - Tobacco History Second Hand Smoke Exposure: No Tobacco Use In Past 30 Days: Yes Smoking Status: Current some day smoker Tobacco Type: Cigarettes - Alcohol History How Often Do You Have a Drink Containing Alcohol: Monthly or less - Substance Use History Substance History: Active Abuse - Substance Use Type Marijuana Status: Active Route Used: Inhalation - Travel History Recent Travel in the [place] Within the Last 8 Weeks: No Recent Travel Out of the Country Within the Last 8 Weeks: No - Immunization History Tetanus Immunization: Unsure Hx Influenza Vaccine This Season: No Medications and Allergies Active Medications: Active Medications Vancomycin HCl 1,000 mg/ (Sodium Chloride) 250 mls @ 250 mls/hr IV.SIG ONCE ONE Stop: 03/05/18 14:44 Last Admin: 03/05/18 13:54 Dose: 250 mls/hr Allergies Allergy/AdvReac Type Severity Reaction Status Date / Time No Known Allergies Allergy Verified 03/05/18 09:36 Home Medications Medication Instructions Recorded Confirmed Type cyclobenzaprine mg PO TID 03/05/18 History hydrocodone-acetaminophen 1 tab PO Q4-6H PRN 03/05/18 03/05/18 History Exam Vital signs: Vital Signs 03/05/18 09:22 03/05/18 10:28 Temperature 99.4 F Pulse Rate 128 H 116 H Respiratory Rate 18 19 Blood Pressure 96/58 L 145/67 H Pulse Oximetry 100 100 Intake & Output 03/04/18 03/05/18 03/05/18 18:59 06:59 18:59 Weight 99.79 kg Narrative: GENERAL: Obese patient in no acute distress. SKIN: Focused skin assessment warm/dry. HEAD: Atraumatic. Normocephalic. EYES: Pupils equal and round. No scleral icterus. No injection or drainage. ENT: No nasal bleeding or discharge. Mucous membranes pink and moist. Tongue is midline. No uvula deviation. NECK: Trachea midline. No JVD. CARDIOVASCULAR: Regular rate and rhythm. No murmur appreciated. RESPIRATORY: No accessory muscle use. Clear to auscultation. Breath sounds equal bilaterally. GASTROINTESTINAL: Abdomen soft, non-tender, nondistended. Hepatic and splenic margins not palpable. MUSCULOSKELETAL: No obvious deformities. No clubbing. No cyanosis. No edema. Full range of motion of the upper and lower extremities bilaterally. 2+ pulses bilaterally. Patient does have a ex-fixator on the right ankle and foot. Patient does have erythema and some swelling noted on the dorsal aspect of the foot. Some drainage noted from some of the fixator suspicion of the lateral aspect but appears to be serosanguineous and no drainage. Slightly warm to touch. Good capillary refill. Her to assess if the fixators are off or not. Patient does have bruises to both kneecaps with abrasions. Per patient and her painful with range of motion. NEUROLOGICAL: Awake and alert. No obvious cranial nerve deficits. Motor grossly within normal limits. Normal speech. PSYCHIATRIC: Appropriate mood and affect; insight and judgment normal. Results - Labs CBC & Chem 7: 03/05/18 11:20 03/05/18 11:20 Labs: Laboratory Results - last 24 hr 03/05/18 03/05/18 11:20 11:20 WBC 10.0 RBC 3.86 L Hgb 10.9 L Hct 33.4 L MCV 86.4 MCH 28.2 MCHC 32.6 RDW 14.6 Plt Count 389 MPV 7.9 Neut % (Auto) 71.5 H Lymph % (Auto) 20.2 Crowley % (Auto) 5.4 Eos % (Auto) 2.5 Baso % (Auto) 0.4 Neut # (Auto) 7.1 Lymph # (Auto) 2.0 Crowley # (Auto) 0.5 Eos # (Auto) 0.2 Baso # (Auto) 0.0 WBC Differential . Differential Comment Auto diff final Sodium 143 Potassium 3.2 L Chloride 106 Carbon Dioxide 28.9 Anion Gap 8 BUN 16 Creatinine 0.88 Estimated GFR Greater than 89 Random Glucose 87 Calcium 8.8 C-Reactive Protein 5.11 H - Imaging Impressions Ankle X-Ray 03/05/18 11:16 CONCLUSION: Good position and alignment on this postoperative study. Foot X-Ray 03/05/18 11:16 CONCLUSION: 1. Stable fixation without acute bony fracture, as above. Knee X-Ray 03/05/18 11:16 CONCLUSION: Unremarkable exam. Knee X-Ray 03/05/18 11:16 CONCLUSION: No acute fracture or joint dislocation at the knee. Caprini VTE Risk Assessment Caprini VTE Risk Assessment: No/Low Risk (score <= 1) Caprini Risk Assessment Model: Point Value = 1 Point Value = 2 Point Value = 3 Point Value = 5 Age 41-60 Minor surgery BMI > 25 kg/m2 Swollen legs Varicose veins or History of unexplained or recurrent spontaneous Oral contraceptives or hormone replacement Sepsis (< 1 month) Serious lung disease, including pneumonia (< 1 month) Abnormal pulmonary function Acute myocardial infarction Congestive heart failure (< 1 month) History of inflammatory bowel disease Medical patient at bed rest Age 61-74 Arthroscopic surgery Major open surgery (> 45 min) Laparoscopic surgery (> 45 min) Malignancy Confined to bed (> 72 hours) Immobilizing plaster cast Central venous access Age >= 75 History of VTE Family history of VTE Factor V Leiden Prothrombin [id number] Lupus anticoagulant Anticardiolipin antibodies Elevated serum homocysteine Heparin-induced thrombocytopenia Other congenital or acquired thrombophilia Stroke (< 1 month) Elective arthroplasty Hip, pelvis, or leg fracture Acute spinal cord injury (< 1 month) Prophylaxis Regimen: Total Risk Factor Score Risk Level Prophylaxis Regimen 0-1 Low Early ambulation 2 Moderate Order ONE of the following: *Sequential Compression Device (SCD) *Heparin 5000 units SQ BID 3-4 Higher Order ONE of the following medications: *Heparin 5000 units SQ TID *Enoxaparin/Lovenox 40 mg SQ daily (WT < 150 kg, CrCl > 30 mL/min) *Enoxaparin/Lovenox 30 mg SQ daily (WT < 150 kg, CrCl > 10-29 mL/min) *Enoxaparin/Lovenox 30 mg SQ BID (WT < 150 kg, CrCl > 30 mL/min) AND/OR *Sequential Compression Device (SCD) 5 or more Highest Order ONE of the following medications: *Heparin 5000 units SQ TID (Preferred with Epidurals) *Enoxaparin/Lovenox 40 mg SQ daily (WT < 150 kg, CrCl > 30 mL/min) *Enoxaparin/Lovenox 30 mg SQ daily (WT < 150 kg, CrCl > 10-29 mL/min) *Enoxaparin/Lovenox 30 mg SQ BID (WT < 150 kg, CrCl > 30 mL/min) AND *Sequential Compression Device (SCD) Assessment and Plan - Plan 1. Status post fall status post revision by Doctor Terry's PA and recommended for revision tomorrow as per patient for her is been difficult to do all her daily 2. History of multiple falls last month with secondary distal tibia and fibula fracture, status post ORIF right distal fracture and external fixation on 01/27/18, Hospitalization , follow Orthopedic surgery for probable procedure tomorrow, antibiotics and pain medicines. CRP elevated Zosyn and Vancomycin. 3. Tobacco dependence strongly recommended to stop smoking 4. Marijuana dependence strongly recommended to avoid behavior 5. Anemia Hemoglobin 10.9 Iron deficiency added Iron supplementation 6. Obesity strongly recommended diet and exercise as outpatient. DVT prophylaxis with SCDs. awaiting for probable procedure tomorrow. Code Status: Full Code. Discussed Condition With: Patient and ER PA. Discharge Planning: Once cleared by Orthopedic surgery.
[2018-03-05] MEDS ORDERED: Vancomycin Consult Pharmacy OTHER PRN (14:58)
[2018-03-05] MEDS: Sod Chloride 0.9% Inj 1,000 ML IV.CONT SCH (17:24)
[2018-03-05] MEDS: Vancomycin Inj 1,500 MG in Sodium Chlor 0.9% Inj 500 ML IV.SIG SCH (21:48)
[2018-03-06] MEDS: Morphine Inj 4 MG/ML Vial IV.PUSH PRN ×3 (04:01→20:27)
[2018-03-06] MEDS: Sod Chloride 0.9% Inj 1,000 ML IV.CONT SCH ×2 (04:14→14:25)
[2018-03-06] MEDS ORDERED: Potassium Chloride 10 MEQ ER Capsule PO ONE (09:05)
[2018-03-06] MEDS: Vancomycin Inj 1,500 MG in Sodium Chlor 0.9% Inj 500 ML IV.SIG SCH (09:48)
--- NOTE | 2018-03-06 13:16 | P.PNIM ---
Subjective Interval history: This is a pleasant 28 y/o female with status post Multiple falls, Patient was recently evaluated here for evaluation of significant fracture to her right ankle. Patient had surgery for it as well as she is currently in a fixator. Per patient she is had 3 falls today and landed on her knees and she has been having pain ever since. She also has pain in her foot and ankle and she believes that 1 of the screws appears to be falling off especially the one on the lateral front aspect. Patient does complain that she has some drainage from the fluid that appears to be yellow. She does complain of some swelling to the area. She is concerned because she is following apparently per patient 12 times in the past couple of days. She does use a walker to get about. She denies any chest pain or shortness of breath. No head injury or loss of consciousness. Takes no blood thinners. Per patient she went to see her surgeon earlier this week and per patient they are expecting to take out the fixator sometime in March. She states that currently her pain is 8 out of 10. She denies any urinary or bowel movement issues. Sustained injury to her right foot, slightly swollen and slightly erythematous, CRP slightly elevated, X rays negative Case was discussed with Dr. Stewart's PA Antonio Carl who actually evaluated the patient this week. May need to review the Fixator and screws under anesthesia, asked to be admitted and start antibiotics. Initial admission asked for Observation. 03-06 SEEN BY ORTHO AND HAD SCREWS ADJUSTED WILL ADMIT DW RN AND PT AND CM NEEDS PT AND OT CAN HAVE A DIET AM LABS Physical Exam Vital signs: Vital Signs 03/05/18 15:29 03/05/18 16:00 03/05/18 16:48 Temperature 98.4 F Pulse Rate 109 H 100 H Respiratory Rate 17 16 16 Blood Pressure 118/63 123/61 Pulse Oximetry 97 100 03/05/18 20:00 03/06/18 00:00 03/06/18 04:00 Temperature 98.5 F 99.6 F Pulse Rate 115 H 102 H 106 H Respiratory Rate 18 16 Blood Pressure 119/82 135/75 134/62 Pulse Oximetry 99 97 98 03/06/18 08:23 03/06/18 12:00 Temperature 98.2 F Pulse Rate 80 70 Respiratory Rate 20 20 Blood Pressure 143/73 H 140/60 Pulse Oximetry 98 98 Intake & Output 03/05/18 03/06/18 03/06/18 18:59 06:59 18:59 Intake Total 300 / 300 1515 / 1515 Balance 300 / 300 1515 / 1515 Weight 99.79 kg 99.79 kg Intake: IV 300 / 300 1515 / 1515 NS Inj 1,000 ML @ 100 mls/hr IV 1000 / 1000 .CONT .Q10H [facility] Rx#:[id number] Zosyn 3.375 GM Premix 50 ML @ 50 / 50 100 mls/hr IV.SIG ONCE ONE Rx#: [id number] Vancomycin Inj 1,000 MG In NS 250 / 250 Inj 250 ML @ 250 mls/hr IV.SIG ONCE ONE Rx#:[id number] Vancomycin Inj 1,500 MG In NS 515 / 515 Inj 500 ML @ 250 mls/hr IV.SIG Q12H [facility] Rx#:[id number] Other: Weight On Admission 99.79 kg Narrative: GENERAL: Obese patient in no acute distress. SKIN: Focused skin assessment warm/dry. HEAD: Atraumatic. Normocephalic. EYES: Pupils equal and round. No scleral icterus. No injection or drainage. ENT: No nasal bleeding or discharge. Mucous membranes pink and moist. Tongue is midline. No uvula deviation. NECK: Trachea midline. No JVD. CARDIOVASCULAR: Regular rate and rhythm. No murmur appreciated. RESPIRATORY: No accessory muscle use. Clear to auscultation. Breath sounds equal bilaterally. GASTROINTESTINAL: Abdomen soft, non-tender, nondistended. Hepatic and splenic margins not palpable. MUSCULOSKELETAL: No obvious deformities. No clubbing. No cyanosis. No edema. Full range of motion of the upper and lower extremities bilaterally. 2+ pulses bilaterally. Patient does have a EXTERNAL-fixator on the right ankle and foot. Patient does have erythema and some swelling noted on the dorsal aspect of the foot. Some drainage noted from some of the fixator suspicion of the lateral aspect but appears to be serosanguineous and no drainage. Slightly warm to touch. Good capillary refill. HARD to assess if the fixators are off or not. Patient does have bruises to both kneecaps with abrasions. Per patient and her painful with range of motion. NEUROLOGICAL: Awake and alert. No obvious cranial nerve deficits. Motor grossly within normal limits. Normal speech. PSYCHIATRIC: Appropriate mood and affect; insight and judgment normal. Results - Labs CBC & Chem 7: 03/05/18 11:20 03/05/18 11:20 - Imaging Impressions Ankle X-Ray 03/05/18 11:16 CONCLUSION: Good position and alignment on this postoperative study. Knee X-Ray 03/05/18 11:16 CONCLUSION: Unremarkable exam. Knee X-Ray 03/05/18 11:16 CONCLUSION: No acute fracture or joint dislocation at the knee. Assessment and Plan - Plan 1. Status post fall status post revision by Doctor Terry's PA and recommended for revision tomorrow as per patient HAS FALLEN MULTIPLE TIMES DAILY 2. History of multiple falls last month with secondary distal tibia and fibula fracture, status post ORIF right distal fracture and external fixation on 01/27/18, Hospitalization , follow Orthopedic surgery for probable procedure tomorrow, antibiotics and pain medicines. CRP elevated Zosyn and Vancomycin. 3. Tobacco dependence strongly recommended to stop smoking 4. Marijuana dependence strongly recommended to avoid behavior 5. Anemia Hemoglobin 10.9 Iron deficiency added Iron supplementation 6. Obesity strongly recommended diet and exercise as outpatient. DVT prophylaxis with SCDs. awaiting for probable procedure tomorrow. Code Status: FULL CODE Discussed Condition With: RN AND PT AND CM Discharge Planning: ONCE CLEARED BY ORTHO
--- NOTE | 2018-03-06 13:29 | P.PCN ---
Date of procedure: 03/06/18 Pre-op diagnosis: external fixator malfunction Post-op diagnosis: same Procedure: removal of 5th metatarsal pin and exfix bar right ankle Surgeon: Yogi Coulter Condition: stable
--- NOTE | 2018-03-06 13:30 | P.PNOP ---
Subjective Interval history: patient known to Dr Stewart has had multiple falls. most recent fall resulted in 5th metatarsal pin migration. Physical Exam Vital signs: Vital Signs 03/05/18 15:29 03/05/18 16:00 03/05/18 16:48 Temperature 98.4 F Pulse Rate 109 H 100 H Respiratory Rate 17 16 16 Blood Pressure 118/63 123/61 Pulse Oximetry 97 100 03/05/18 20:00 03/06/18 00:00 03/06/18 04:00 Temperature 98.5 F 99.6 F Pulse Rate 115 H 102 H 106 H Respiratory Rate 18 16 Blood Pressure 119/82 135/75 134/62 Pulse Oximetry 99 97 98 03/06/18 08:23 03/06/18 12:00 Temperature 98.2 F Pulse Rate 80 70 Respiratory Rate 20 20 Blood Pressure 143/73 H 140/60 Pulse Oximetry 98 98 Intake & Output 03/05/18 03/06/18 03/06/18 18:59 06:59 18:59 Intake Total 300 / 300 1515 / 1515 Balance 300 / 300 1515 / 1515 Weight 99.79 kg 99.79 kg Intake: IV 300 / 300 1515 / 1515 NS Inj 1,000 ML @ 100 mls/hr IV 1000 / 1000 .CONT .Q10H [facility] Rx#:[id number] Zosyn 3.375 GM Premix 50 ML @ 50 / 50 100 mls/hr IV.SIG ONCE ONE Rx#: [id number] Vancomycin Inj 1,000 MG In NS 250 / 250 Inj 250 ML @ 250 mls/hr IV.SIG ONCE ONE Rx#:[id number] Vancomycin Inj 1,500 MG In NS 515 / 515 Inj 500 ML @ 250 mls/hr IV.SIG Q12H [facility] Rx#:[id number] Other: Weight On Admission 99.79 kg Narrative: RLE: 5th MT pin appears to be sunken into foot. lateral exfix bar is resting on skin . Results - Labs CBC & Chem 7: 03/05/18 11:20 03/05/18 11:20 Assessment and Plan - Assessment and Plan 1) right tibial Pilon fx s/p ORIF and exfix by Terry -5th MT pin removed today at bedside -bandage pin site wtih xeroform/4x4/DEANDRE -NWB -elevate -medical mgmt
[2018-03-06 18:20] LABS: Hemoglobin A1c 4.7 % (4.3-6.0)
[2018-03-07] MEDS: Vancomycin Inj 1,500 MG in Sodium Chlor 0.9% Inj 500 ML IV.SIG SCH ×3 (00:28→21:18)
[2018-03-07] MEDS: Sod Chloride 0.9% Inj 1,000 ML IV.CONT SCH ×3 (00:36→16:10)
[2018-03-07] MEDS: Morphine Inj 4 MG/ML Vial IV.PUSH PRN ×3 (04:57→19:50)
[2018-03-07 07:21] LABS: Baso % (Auto) 0.3 % (0.0-2.0); Eos # (Auto) 0.2 th/mm3 (0.0-0.4); Eos % (Auto) 2.9 % (0.0-4.0); Hematocrit 27.8 % (35.0-46.0); Hemoglobin 9.2 gm/dL (11.6-15.3); Lymph % (Auto) 36.6 % (9.0-44.0); Mean Corpuscular HGB Conc 33.2 % (32.0-36.0); Mean Corpuscular Hemoglobin 28.1 pg (27.0-34.0); Mean Corpuscular Volume 84.5 fL (80.0-100.0); Mono # (Auto) 0.4 th/mm3 (0.0-0.9); Mono % (Auto) 6.7 % (0.0-8.0); Neut # (Auto) 2.9 th/mm3 (1.8-7.7); Neut % (Auto) 53.5 % (16.0-70.0); Platelet Count 337 th/mm3 (150-450); Red Blood Count 3.29 mil/mm3 (4.00-5.30); Red Cell Distribution Width 14.4 % (11.6-17.2); White Blood Count 5.5 th/mm3 (4.0-11.0)
[2018-03-07 07:29] LABS: INR 0.9 Ratio; Prothrombin Time 9.2 sec (9.8-11.6)
[2018-03-07 07:55] LABS: Alanine Aminotransferase 12 U/L (10-53); Albumin 2.5 g/dL (3.4-5.0); Alkaline Phosphatase 76 U/L (45-117); Anion Gap 11 meq/L (5-15); Aspartate Aminotransferase 8 U/L (15-37); Blood Urea Nitrogen 7 mg/dL (7-18); Calcium 8.3 mg/dL (8.5-10.1); Carbon Dioxide 25.4 meq/L (21.0-32.0); Chloride 106 meq/L (98-107); Glomerular Filtration Rate Greater Than 89 mL/min (>89); Glucose,Random 84 mg/dL (74-106); Magnesium 2.3 mg/dL (1.5-2.5); Phosphorus 3.6 mg/dL (2.5-4.9); Potassium 4.1 meq/L (3.5-5.1); Sodium 142 meq/L (136-145); Total Protein 6.6 g/dL (6.4-8.2)
[2018-03-07] MEDS ORDERED: Pharmacy Ordered Lab Info OTHER ONE (09:45)
--- NOTE | 2018-03-07 10:09 | P.PNIM ---
Subjective Interval history: This is a pleasant 28 y/o female with status post Multiple falls, Patient was recently evaluated here for evaluation of significant fracture to her right ankle. Patient had surgery for it as well as she is currently in a fixator. Per patient she is had 3 falls today and landed on her knees and she has been having pain ever since. She also has pain in her foot and ankle and she believes that 1 of the screws appears to be falling off especially the one on the lateral front aspect. Patient does complain that she has some drainage from the fluid that appears to be yellow. She does complain of some swelling to the area. She is concerned because she is following apparently per patient 12 times in the past couple of days. She does use a walker to get about. She denies any chest pain or shortness of breath. No head injury or loss of consciousness. Takes no blood thinners. Per patient she went to see her surgeon earlier this week and per patient they are expecting to take out the fixator sometime in March. She states that currently her pain is 8 out of 10. She denies any urinary or bowel movement issues. Sustained injury to her right foot, slightly swollen and slightly erythematous, CRP slightly elevated, X rays negative Case was discussed with Dr. Stewart's PA Antonio Carl who actually evaluated the patient this week. May need to review the Fixator and screws under anesthesia, asked to be admitted and start antibiotics. Initial admission asked for Observation. 03-06 SEEN BY ORTHO AND HAD SCREWS ADJUSTED WILL ADMIT DW RN AND PT AND CM NEEDS PT AND OT CAN HAVE A DIET AM LABS 03-07 SEEN BY ORTHO YESTERDAY HAD BESIDE REMOVAL OF A PIN YESTERDAY STATES HAS BEEN FALLING AT HOME NOW HAS A HIGH END WALKER Physical Exam Vital signs: Vital Signs 03/06/18 12:00 03/06/18 20:00 03/07/18 00:00 Temperature 98.2 F 97.6 F 98.1 F Pulse Rate 70 90 97 H Respiratory Rate 20 16 16 Blood Pressure 140/60 102/61 102/58 L Pulse Oximetry 98 95 94 L 03/07/18 01:05 03/07/18 05:00 03/07/18 07:00 Temperature Pulse Rate Respiratory Rate 18 18 18 Blood Pressure Pulse Oximetry 03/07/18 08:00 Temperature 98.0 F Pulse Rate 96 H Respiratory Rate 16 Blood Pressure 127/69 Pulse Oximetry 99 Intake & Output 03/06/18 03/07/18 03/07/18 18:59 06:59 18:59 Intake Total 1515 / 1515 1515 / 1515 Balance 1515 / 1515 1515 / 1515 Intake: IV 1515 / 1515 1515 / 1515 NS Inj 1,000 ML @ 100 mls/hr IV 1000 / 1000 1000 / 1000 .CONT .Q10H [facility] Rx#:[id number] Vancomycin Inj 1,500 MG In NS 515 / 515 515 / 515 Inj 500 ML @ 250 mls/hr IV.SIG Q12H [facility] Rx#:[id number] Narrative: GENERAL: Obese patient in no acute distress. SKIN: Focused skin assessment warm/dry. HEAD: Atraumatic. Normocephalic. EYES: Pupils equal and round. No scleral icterus. No injection or drainage. ENT: No nasal bleeding or discharge. Mucous membranes pink and moist. Tongue is midline. No uvula deviation. NECK: Trachea midline. No JVD. CARDIOVASCULAR: Regular rate and rhythm. No murmur appreciated. RESPIRATORY: No accessory muscle use. Clear to auscultation. Breath sounds equal bilaterally. GASTROINTESTINAL: Abdomen soft, non-tender, nondistended. Hepatic and splenic margins not palpable. MUSCULOSKELETAL: No obvious deformities. No clubbing. No cyanosis. No edema. Full range of motion of the upper and lower extremities bilaterally. 2+ pulses bilaterally. Patient does have a EXTERNAL-fixator on the right ankle and foot. Patient does have erythema and some swelling noted on the dorsal aspect of the foot. Some drainage noted from some of the fixator suspicion of the lateral aspect but appears to be serosanguineous and no drainage. Slightly warm to touch. Good capillary refill. HARD to assess if the fixators are off or not. Patient does have bruises to both kneecaps with abrasions. Per patient and her painful with range of motion. NEUROLOGICAL: Awake and alert. No obvious cranial nerve deficits. Motor grossly within normal limits. Normal speech. PSYCHIATRIC: Appropriate mood and affect; insight and judgment normal. Results - Labs CBC & Chem 7: 03/07/18 05:40 03/07/18 05:40 Laboratory Results - last 24 hr 03/06/18 03/06/18 03/06/18 13:59 14:28 14:34 WBC RBC Hgb Hct MCV MCH MCHC RDW Plt Count MPV Neut % (Auto) Lymph % (Auto) [place] % (Auto) Eos % (Auto) Baso % (Auto) Neut # (Auto) Lymph # (Auto) [place] # (Auto) Eos # (Auto) Baso # (Auto) WBC Differential Differential Comment PT INR Sodium Potassium Chloride Carbon Dioxide Anion Gap BUN Creatinine Estimated GFR Random Glucose Hemoglobin A1c 4.7 Calcium Phosphorus Magnesium Total Bilirubin AST ALT Alkaline Phosphatase Total Protein Albumin TSH 0.626 Free T4 1.12 03/07/18 03/07/18 03/07/18 05:40 05:40 05:40 WBC 5.5 RBC 3.29 L Hgb 9.2 L Hct 27.8 L MCV 84.5 MCH 28.1 MCHC 33.2 RDW 14.4 Plt Count 337 MPV 8.0 Neut % (Auto) 53.5 Lymph % (Auto) 36.6 [place] % (Auto) 6.7 Eos % (Auto) 2.9 Baso % (Auto) 0.3 Neut # (Auto) 2.9 Lymph # (Auto) 2.0 [place] # (Auto) 0.4 Eos # (Auto) 0.2 Baso # (Auto) 0.0 WBC Differential . Differential Comment Auto diff final PT 9.2 L INR 0.9 Sodium 142 Potassium 4.1 D Chloride 106 Carbon Dioxide 25.4 Anion Gap 11 BUN 7 Creatinine 0.61 Estimated GFR Greater than 89 Random Glucose 84 Hemoglobin A1c Calcium 8.3 L Phosphorus 3.6 Magnesium 2.3 Total Bilirubin 0.1 L AST 8 L ALT 12 Alkaline Phosphatase 76 Total Protein 6.6 Albumin 2.5 L TSH Free T4 - Imaging Ankle X-Ray 03/05/18 11:16 CONCLUSION: Good position and alignment on this postoperative study. Foot X-Ray 03/05/18 11:16 CONCLUSION: 1. Stable fixation without acute bony fracture, as above. Knee X-Ray 03/05/18 11:16 CONCLUSION: Unremarkable exam. Knee X-Ray 03/05/18 11:16 CONCLUSION: No acute fracture or joint dislocation at the knee. - Procedures Date of procedure: 03/06/18 Pre-op diagnosis: external fixator malfunction Post-op diagnosis: same Procedure: removal of 5th metatarsal pin and exfix bar right ankle Surgeon: Yogi Coulter Condition: stable Assessment and Plan - Plan 1. Status post fall status post revision by Doctor Terry's PA and recommended for revision YESTERDAY 03-06 as per patient HAS FALLEN MULTIPLE TIMES DAILY 2. History of multiple falls last month with secondary distal tibia and fibula fracture, status post ORIF right distal fracture and external fixation on 01/27/18, Hospitalization , follow Orthopedic surgery for probable procedure tomorrow, antibiotics and pain medicines. CRP elevated Zosyn and Vancomycin. 3. Tobacco dependence strongly recommended to stop smoking 4. Marijuana dependence strongly recommended to avoid behavior 5. Anemia Hemoglobin 10.9 Iron deficiency added Iron supplementation 6. Obesity strongly recommended diet and exercise as outpatient. DVT prophylaxis with SCDs. awaiting for probable procedure tomorrow. AM LABS Code Status: FULL CODE Discussed Condition With: RN AND PT AND CM Discharge Planning: IN NEXT 24 TO 48 HOURS IF REMAINS AFEBRILE AND NO GROWTH
[2018-03-08] MEDS: Sod Chloride 0.9% Inj 1,000 ML IV.CONT SCH ×3 (03:27→21:59)
[2018-03-08 07:23] LABS: Baso % (Auto) 0.1 % (0.0-2.0); Eos # (Auto) 0.2 th/mm3 (0.0-0.4); Eos % (Auto) 2.6 % (0.0-4.0); Hematocrit 30.2 % (35.0-46.0); Lymph # (Auto) 2.2 th/mm3 (1.0-4.8); Lymph % (Auto) 32.1 % (9.0-44.0); Mean Corpuscular Hemoglobin 28.2 pg (27.0-34.0); Mean Corpuscular Volume 85.4 fL (80.0-100.0); Mean Platelet Volume 7.6 fL (7.0-11.0); Mono # (Auto) 0.4 th/mm3 (0.0-0.9); Mono % (Auto) 5.3 % (0.0-8.0); Neut # (Auto) 4.1 th/mm3 (1.8-7.7); Neut % (Auto) 59.9 % (16.0-70.0); Platelet Count 342 th/mm3 (150-450); Red Blood Count 3.54 mil/mm3 (4.00-5.30); Red Cell Distribution Width 14.3 % (11.6-17.2); White Blood Count 6.8 th/mm3 (4.0-11.0)
[2018-03-08 07:48] LABS: Albumin 2.7 g/dL (3.4-5.0); Anion Gap 8 meq/L (5-15); Aspartate Aminotransferase 13 U/L (15-37); Blood Urea Nitrogen 7 mg/dL (7-18); Calcium 9.1 mg/dL (8.5-10.1); Carbon Dioxide 28.2 meq/L (21.0-32.0); Chloride 103 meq/L (98-107); Glomerular Filtration Rate Greater Than 89 mL/min (>89); Glucose,Random 104 mg/dL (74-106); Magnesium 1.8 mg/dL (1.5-2.5); Potassium 3.8 meq/L (3.5-5.1); Sodium 139 meq/L (136-145)
[2018-03-08 07:59] LABS: Alanine Aminotransferase 14 U/L (10-53); Alkaline Phosphatase 85 U/L (45-117); Phosphorus 4.7 mg/dL (2.5-4.9); Total Protein 6.9 g/dL (6.4-8.2)
--- NOTE | 2018-03-08 08:09 | P.PNOP ---
Subjective Interval history: Known patient to Dr. Stewart. Patient states she did have increased pain last night but it was controlled with pain medication. All pins are exposed and not dressed at this time Physical Exam Vital signs: Vital Signs 03/07/18 10:37 03/07/18 13:08 03/07/18 16:00 Temperature 98.5 F 97.8 F Pulse Rate 91 H 94 H Respiratory Rate 18 16 17 Blood Pressure 153/66 H 107/62 Pulse Oximetry 100 100 03/07/18 20:00 03/07/18 20:22 03/08/18 00:03 Temperature 97.9 F 97.8 F Pulse Rate 95 H 96 H Respiratory Rate 20 20 20 Blood Pressure 124/55 L 100/52 L Pulse Oximetry 97 96 Intake & Output 03/07/18 03/08/18 03/08/18 18:59 06:59 18:59 Intake Total 1369 / 1369 1780 / 1780 Balance 1369 / 1369 1780 / 1780 Weight 99.79 kg Intake: IV 1369 / 1369 1000 / 1000 NS Inj 1,000 ML @ 100 mls/hr IV 869 / 869 1000 / 1000 .CONT .Q10H [facility] Rx#:[id number] Vancomycin Inj 1,500 MG In NS 500 / 500 Inj 500 ML @ 250 mls/hr IV.SIG Q12H [facility] Rx#:[id number] Oral 780 / 780 Other: # Voids 3 Date of Last Bowel Movement 03/04/18 03/04/18 # Bowel Movements 1 Narrative: RLE: All pins are exposed and not dressed, no discharge, no purulent material, dry skin noted around pain, patient able to freely move distal digits, palpable tenderness throughout ankle and pin sites, no calf pain, neurovascularly intact Results - Labs CBC & Chem 7: 03/08/18 06:22 03/08/18 06:22 Laboratory Results - last 24 hr 03/07/18 03/08/18 03/08/18 09:50 06:22 06:22 WBC 6.8 RBC 3.54 L Hgb 10.0 L Hct 30.2 L MCV 85.4 MCH 28.2 MCHC 33.0 RDW 14.3 Plt Count 342 MPV 7.6 Neut % (Auto) 59.9 Lymph % (Auto) 32.1 [place] % (Auto) 5.3 Eos % (Auto) 2.6 Baso % (Auto) 0.1 Neut # (Auto) 4.1 Lymph # (Auto) 2.2 [place] # (Auto) 0.4 Eos # (Auto) 0.2 Baso # (Auto) 0.0 WBC Differential . Differential Comment Auto diff final Sodium 139 Potassium 3.8 Chloride 103 Carbon Dioxide 28.2 Anion Gap 8 BUN 7 Creatinine 0.74 Estimated GFR Greater than 89 Random Glucose 104 Calcium 9.1 D Phosphorus 4.7 D Magnesium 1.8 Total Bilirubin 0.2 AST 13 L ALT 14 Alkaline Phosphatase 85 Total Protein 6.9 Albumin 2.7 L Vancomycin Trough 9.8 - Procedures Date of procedure: 03/06/18 Pre-op diagnosis: external fixator malfunction Post-op diagnosis: same Procedure: removal of 5th metatarsal pin and exfix bar right ankle Surgeon: Yogi Coulter Condition: stable Assessment and Plan - Assessment and Plan 1) right tibial Pilon fx s/p ORIF and exfix by Terry -5th MT pin removed in ER by ortho PA -bandage pin site wtih xeroform/4x4/DEANDRE - New orders placed- discussion was had with RB - daily pin care once dressed BID -NWB, PT consult ordered -elevate -medical mgmt - clear for d/c from orthopedic standpoint, will require [facility] for daily pin care once discharged. RN/PT
[2018-03-08] MEDS: Vancomycin Inj 1,500 MG in Sodium Chlor 0.9% Inj 500 ML IV.SIG SCH ×2 (10:35→21:59)
--- NOTE | 2018-03-08 11:00 | P.DCO ---
- Home Health Nursing Order: Signs/symptoms of disease process, Wound care and dressing changes, Nursing assessment with vital signs Instructions: bandage pin site wtih xeroform/4x4/DEANDRE - Certification I have seen patient Dania Kaur on 03/08/18. My clinical findings support the need for the requested home health care services because: Limited mobility due to disease progression, Limited ability to care for self I certify that my clinical findings support that this patient is homebound because: Post-op weakness, Unsteady gait/balance, Unsafe to leave home unassisted, Unable to use public transportation
--- NOTE | 2018-03-08 11:03 | P.DS ---
Date of admission: 03/06/18 13:06 Primary care physician: No Primary Care Physician Brief History from admission: This is a pleasant 28 y/o female with status post Multiple falls, Patient was recently evaluated here for evaluation of significant fracture to her right ankle. Patient had surgery for it as well as she is currently in a fixator. Per patient she is had 3 falls today and landed on her knees and she has been having pain ever since. She also has pain in her foot and ankle and she believes that 1 of the screws appears to be falling off especially the one on the lateral front aspect. Patient does complain that she has some drainage from the fluid that appears to be yellow. She does complain of some swelling to the area. She is concerned because she is following apparently per patient 12 times in the past couple of days. She does use a walker to get about. She denies any chest pain or shortness of breath. No head injury or loss of consciousness. Takes no blood thinners. Per patient she went to see her surgeon earlier this week and per patient they are expecting to take out the fixator sometime in March. She states that currently her pain is 8 out of 10. She denies any urinary or bowel movement issues. Sustained injury to her right foot, slightly swollen and slightly erythematous, CRP slightly elevated, X rays negative Case was discussed with Dr. Stewart's PA Antonio Carl who actually evaluated the patient this week. May need to review the Fixator and screws under anesthesia, asked to be admitted and start antibiotics. Initial admission asked for Observation. DS: Summary Hospital Course: Mrs. Kaur is a 28-year-old female. She is status post right tibial Pilon fx s/ p ORIF and exfix by Dr. Stewart. She had a fall and fractured 1 of the pins came in the hospital for revision of her external fixator. 5th MT pin removed in ER by ortho PA. Patient is doing well status post revision procedure/ surgery. Pain is controlled. No plans to remove external fixation at this point. She is medically stable and cleared for discharge today and has been cleared by orthopedic surgeons for discharge. Resume previous treatments. Continue home health care with dressing changes and wound monitoring. - Time Spent with Patient Total time spent providing and/or coordinating discharge services: Less than 30 minutes - Quality: VTE Deep Vein Thrombosis/Pulmonary Embolism Present on Admission: No Exam Vital signs: Vital Signs 03/07/18 13:08 03/07/18 16:00 03/07/18 20:00 Temperature 98.5 F 97.8 F Pulse Rate 91 H 94 H Respiratory Rate 16 17 20 Blood Pressure 153/66 H 107/62 Pulse Oximetry 100 100 03/07/18 20:22 03/08/18 00:03 03/08/18 08:00 Temperature 97.9 F 97.8 F 97.9 F Pulse Rate 95 H 96 H 86 Respiratory Rate 20 20 20 Blood Pressure 124/55 L 100/52 L 106/53 L Pulse Oximetry 97 96 95 Intake & Output 03/07/18 03/08/18 03/08/18 18:59 06:59 18:59 Intake Total 1369 / 1369 1780 / 1780 Balance 1369 / 1369 1780 / 1780 Weight 99.79 kg Intake: IV 1369 / 1369 1000 / 1000 NS Inj 1,000 ML @ 100 mls/hr IV 869 / 869 1000 / 1000 .CONT .Q10H [facility] Rx#:[id number] Vancomycin Inj 1,500 MG In NS 500 / 500 Inj 500 ML @ 250 mls/hr IV.SIG Q12H [facility] Rx#:[id number] Oral 780 / 780 Other: # Voids 3 Date of Last Bowel Movement 03/04/18 03/04/18 03/08/18 # Bowel Movements 1 Results Procedures completed during hospitalization: Date of procedure: 03/06/18 Pre-op diagnosis: external fixator malfunction Post-op diagnosis: same Procedure: removal of 5th metatarsal pin and exfix bar right ankle Surgeon: Yogi Coulter Condition: stable Labs on day of discharge: Labs from last 24 hours 03/08/18 03/08/18 06:22 06:22 WBC 6.8 RBC 3.54 L Hgb 10.0 L Hct 30.2 L MCV 85.4 MCH 28.2 MCHC 33.0 RDW 14.3 Plt Count 342 MPV 7.6 Neut % (Auto) 59.9 Lymph % (Auto) 32.1 [place] % (Auto) 5.3 Eos % (Auto) 2.6 Baso % (Auto) 0.1 Neut # (Auto) 4.1 Lymph # (Auto) 2.2 [place] # (Auto) 0.4 Eos # (Auto) 0.2 Baso # (Auto) 0.0 WBC Differential . Differential Comment Auto diff final Sodium 139 Potassium 3.8 Chloride 103 Carbon Dioxide 28.2 Anion Gap 8 BUN 7 Creatinine 0.74 Estimated GFR Greater than 89 Random Glucose 104 Calcium 9.1 D Phosphorus 4.7 D Magnesium 1.8 Total Bilirubin 0.2 AST 13 L ALT 14 Alkaline Phosphatase 85 Total Protein 6.9 Albumin 2.7 L - Impressions ITS Impressions Ankle X-Ray 03/05/18 11:16 CONCLUSION: Good position and alignment on this postoperative study. Foot X-Ray 03/05/18 11:16 CONCLUSION: 1. Stable fixation without acute bony fracture, as above. Knee X-Ray 03/05/18 11:16 CONCLUSION: No acute fracture or joint dislocation at the knee. Discharge Plan - Discharge Disposition Patient Disposition: /Home Health Service - Discharge Condition Condition: Stable - Discharge Order Discharge Orders: Discharge Order (Routine); Ordered 03/08/18 Ordered By: Adam Lowery - Discharge Details Anticipated Discharge Date: 03/08/18 - Physicians Team Primary Care Provider: Primary Care Martinei,No Attending Provider: Adam Lowery Other Providers: Rakan Ca MD
[2018-03-08] MEDS: Morphine Inj 4 MG/ML Vial IV.PUSH PRN (15:57)
[2018-03-09 07:39] LABS: Baso % (Auto) 0.5 % (0.0-2.0); Eos # (Auto) 0.2 th/mm3 (0.0-0.4); Eos % (Auto) 3.2 % (0.0-4.0); Hematocrit 32.3 % (35.0-46.0); Hemoglobin 10.9 gm/dL (11.6-15.3); Lymph # (Auto) 2.3 th/mm3 (1.0-4.8); Lymph % (Auto) 38.6 % (9.0-44.0); Mean Corpuscular HGB Conc 33.7 % (32.0-36.0); Mean Corpuscular Hemoglobin 28.3 pg (27.0-34.0); Mean Platelet Volume 7.9 fL (7.0-11.0); Mono # (Auto) 0.4 th/mm3 (0.0-0.9); Mono % (Auto) 6.5 % (0.0-8.0); Neut % (Auto) 51.2 % (16.0-70.0); Platelet Count 310 th/mm3 (150-450); Red Blood Count 3.84 mil/mm3 (4.00-5.30); Red Cell Distribution Width 14.6 % (11.6-17.2); White Blood Count 5.9 th/mm3 (4.0-11.0)
[2018-03-09 07:44] LABS: Alanine Aminotransferase 15 U/L (10-53); Albumin 2.6 g/dL (3.4-5.0); Alkaline Phosphatase 76 U/L (45-117); Anion Gap 9 meq/L (5-15); Aspartate Aminotransferase 26 U/L (15-37); Blood Urea Nitrogen 7 mg/dL (7-18); Calcium 9.2 mg/dL (8.5-10.1); Carbon Dioxide 25.2 meq/L (21.0-32.0); Chloride 104 meq/L (98-107); Glomerular Filtration Rate Greater Than 89 mL/min (>89); Glucose,Random 99 mg/dL (74-106); Potassium 4.7 meq/L (3.5-5.1); Sodium 138 meq/L (136-145)
[2018-03-09 08:36] VITALS: BP 118/54; PULSE 88; RESP 18; TEMP 98.3; O2SAT 96
[2018-03-09] MEDS: Sod Chloride 0.9% Inj 1,000 ML IV.CONT SCH (08:51)
[2018-03-09] MEDS: Morphine Inj 4 MG/ML Vial IV.PUSH PRN (08:56)
== END 2018-03-09 10:57 | disposition home health service (06) ==
LOC: NEPE 09:18 → NEDA 09:18 → NEPHCDU 16:07 → N07 03-07 16:39
PROVIDERS: ADMIT Hospitalist; ATTEND Hospitalist